=== PATIENT | male | born 1975 | race African-American/Black ===

== ENCOUNTER 2025-08-22 11:17 | Outpatient (AMB) | payer OTHER, SELFPAY ==
--- NOTE | 2025-08-22 11:19 | HO.NEPHOV_ITS ---
Vital Signs 08/22/25 11:22 Height 5 ft 8 in Weight 166 lb BMI 25.2 BP 134/100 H Blood Pressure Location Lt brachial Position Sitting Pulse 83 Pulse Source Pulse Oximeter Pulse Oximetry (%) 95 Oxygen Delivery Method Room Air Intake Visit Reasons: ENP: CKD STG 2-LVM Security Tech Required: No Accompanied by: Significant Other Allergies metformin Allergy (Verified 08/22/25 11:21) Diarrhea HPI Comments Details: I had the pleasure of seeing Darren in consultation for CKD and hypertension. He has a long H/O uncontrolled DM. He is on insulin. He is on ARB as well as Amlodipine for hypertension. He is not on GLP1 or SGLT2 i. He has H/O retinopathy needing laser treatment for his right eye. He denied CAD, Carotid stenosis, CVA, CHF or PAD. He denies smoking but smokes marijuana. He has H/O difficulty swallowing, gastric emptying but had intermittent bouts of vomiting. He tries to avoid NSAID's as much as he can. He is not sure whether he has proteinuria. His last serum creatinine was 1.47 [facility] Medical History (Updated 08/22/25 @ 21:17 by Sony Hawk MD) Urolithiasis Tendonitis of knee, right Tachycardia Right knee pain Osteoarthritis of right knee Migraine with aura and without status migrainosus, not intractable Major depressive disorder in partial remission Iron deficiency anemia due to chronic blood loss Insomnia Hypertension H/O esophageal reflux Erectile dysfunction Elevated alkaline phosphatase level DM (diabetes mellitus), type 2 with peripheral vascular complications COVID-19 virus infection Surgical History History of endoscopy Family History Mother Cancer Maternal Grandfather Diabetes mellitus Social History (Updated 08/22/25 @ 11:20 by Dahlia Mcmillan MA) Alcohol intake: never Patient Tobacco Use Status: Never used Tobacco Substance Use Type: Marijuana Review of Systems Const All systems reviewed & are unremarkable except as noted in HPI and below Physical Exam Vital Signs: Last Vital Signs Pulse 83 08/22/25 11:22 BP 134/100 H 08/22/25 11:22 Pulse Ox 95 08/22/25 11:22 Oxygen Delivery Method Room Air 08/22/25 11:22 BMI result Body Mass Index 25.2 Const General: comfortable and no acute distress Orientation/consciousness: patient oriented x3 HEENT Head: Yes normocephalic Mouth: Normal oral and palatal mucosa present Eyes EOM: EOMs intact bilaterally Neck Neck: Yes supple Resp Auscultation: clear to auscultation bilaterally Cardio Jugular venous distension: no JVD Rate: regular rate GI Palpation (GI): Soft to palpation Auscultation: normal bowel sounds General: Yes no CVA tenderness Back/Spine/Pelvis Back: no CVA tenderness Skin General skin exam: no rashes or lesions noted Neuro General: patient oriented x3 and moves all extremities Extrem General: Yes no pedal edema Assessment & Plan Assessment & Plan (1) Hypertension: Code(s): I10 - Essential (primary) hypertension Category: Medical Qualifiers: Hypertension type: primary hypertension Qualified Code(s): I10 - Essential (primary) hypertension (2) CKD stage 3 due to type 2 diabetes mellitus: Code(s): E11.22 - Type 2 diabetes mellitus with diabetic chronic kidney disease; N18.30 - Chronic kidney disease, stage 3 unspecified Category: Medical Plan Darren has CKD likely from diabetic renal disease. He is on ARB but not on GLP1 agonist or SGLT2 i. He needs to maintain good hydration and avoid NSAID's. I ordered W/U including renal imaging as well as creatinine clearance. He may need a renal biopsy. I plan to initiate him on SGLT2 i at next visit based on evolving data. Answered all questions and F/U was given Orders: Orders Immunofixation, Random Urine Today E11.22 - Type 2 diabetes mellitus with diabetic chronic kidney disease, I10 - Essential (primary) hypertension, N18.30 - Chronic kidney disease, stage 3 unspecified Creatinine Today E11.22 - Type 2 diabetes mellitus with diabetic chronic kidney disease, I10 - Essential (primary) hypertension, N18.30 - Chronic kidney disease, stage 3 unspecified Blood Urea Nitrogen Today E11.22 - Type 2 diabetes mellitus with diabetic chronic kidney disease, I10 - Essential (primary) hypertension, N18.30 - Chronic kidney disease, stage 3 unspecified Phosphorus Today E11.22 - Type 2 diabetes mellitus with diabetic chronic kidney disease, I10 - Essential (primary) hypertension, N18.30 - Chronic kidney disease, stage 3 unspecified Anti DNA DS Antibody Today E11.22 - Type 2 diabetes mellitus with diabetic chronic kidney disease, I10 - Essential (primary) hypertension, N18.30 - Chronic kidney disease, stage 3 unspecified Myeloperoxidase Antibody Today E11. - Type 2 diabetes mellitus with diabetic chronic kidney disease, I10 - Essential (primary) hypertension, N18.30 - Chronic kidney disease, stage 3 unspecified Proteinase 3 PR3 Antibodies Today E11. - Type 2 diabetes mellitus with diabetic chronic kidney disease, I10 - Essential (primary) hypertension, N18.30 - Chronic kidney disease, stage 3 unspecified US renal BI 3 Weeks E11. - Type 2 diabetes mellitus with diabetic chronic kidney disease, I10 - Essential (primary) hypertension, N18.30 - Chronic kidney disease, stage 3 unspecified Creatinine Clearance Urine 24U Today E11. - Type 2 diabetes mellitus with diabetic chronic kidney disease, I10 - Essential (primary) hypertension, N18.30 - Chronic kidney disease, stage 3 unspecified Complete Blood Count Auto Diff Today E11. - Type 2 diabetes mellitus with diabetic chronic kidney disease, I10 - Essential (primary) hypertension, N18.30 - Chronic kidney disease, stage 3 unspecified Protein Creatinine Ratio, Ur Today E11. - Type 2 diabetes mellitus with diabetic chronic kidney disease, I10 - Essential (primary) hypertension, N18.30 - Chronic kidney disease, stage 3 unspecified Electrolytes Today E11. - Type 2 diabetes mellitus with diabetic chronic kidney disease, I10 - Essential (primary) hypertension, N18.30 - Chronic kidney disease, stage 3 unspecified Calcium Today E11. - Type 2 diabetes mellitus with diabetic chronic kidney disease, I10 - Essential (primary) hypertension, N18.30 - Chronic kidney disease, stage 3 unspecified Phospholipase A2 Receptor Pnl Today . - Type 2 diabetes mellitus with diabetic chronic kidney disease, I10 - Essential (primary) hypertension, N18.30 - Chronic kidney disease, stage 3 unspecified Anti Glomerular Basement Memb Today E11. - Type 2 diabetes mellitus with diabetic chronic kidney disease, I10 - Essential (primary) hypertension, N18.30 - Chronic kidney disease, stage 3 unspecified Complement C3 Today E11. - Type 2 diabetes mellitus with diabetic chronic kidney disease, I10 - Essential (primary) hypertension, N18.30 - Chronic kidney disease, stage 3 unspecified Complement C4 Today . - Type 2 diabetes mellitus with diabetic chronic kidney disease, I10 - Essential (primary) hypertension, N18.30 - Chronic kidney disease, stage 3 unspecified Prothrombin Time INR Today E11.22 - Type 2 diabetes mellitus with diabetic chronic kidney disease, I10 - Essential (primary) hypertension, N18.30 - Chronic kidney disease, stage 3 unspecified Coding Level of Care Code New Pt Level 4 (50678) Diagnoses Primary hypertension I10 Hypertension type: primary hypertension CKD stage 3 due to type 2 diabetes mellitus E11.22; N18.30
[2025-08-22 11:22] VITALS: BP 134/100; PULSE 83; O2SAT 95; BMI 25.2
--- OUTSIDE RECORDS SUMMARY | 2025-08-22 12:44 | XMS_ITS | Encounter Summary ---
Author Organization [facility] Address [address] [facility] [address] [place] [phone] Phone Care Team Providers Care Team Leader Name Role Phone Americo Garcia MD Primary Care Provider [phone] Americo Garcia MD Unavailable [phone] Kassi Bal Unavailable Pcp, Unknown Primary Care Provider Unavailabl e Dank Nguyen MD Primary Care Provider [phone] Encounter Details Date Type Department Care Team (Late st Contact Info) Description 08/19/2017 [place] [facility] [place] [facility] [address] [place] [address] Americo Garcia MD [address] [place] [address] [email or web address] Social History Tobacco Use Types Packs/Day Years Used Date Smoking Tobacco: Every Day Cigarettes 0.3 15 Alcohol Use Standard Drinks/Week Comments Yes 0 (1 standard drink = 0.6 oz pur e alcohol) socially Sex and Gender Information Value Date Recorded Sex Assigned at Male 11/30/2017 9:36 AM EST Legal Sex Male 11:15 AM EST Gender Identity Male 11/30/2017 9:36 AM EST Sexual Orientation Straight 11/30/2017 9: 36 AM EST documented as of this encounter Plan of Treatment Not on file documented as of this encounter Visit Diagnoses Not on filedocumented in this encounter Care Teams Team Leader Relationship Specialty Start Date End Date Americo Garcia MD [address] [place] [address] [email or web address] PCP - General Internal Medicine 05/05/17 12/15/21 Pcp, Unknown PCP - General 02/01/22 07/06/22 Dank Nguyen MD [address] [place] [address] [address] [place] [address] PCP - General Internal Medicine 07/07/22 Americo Garcia MD [address] [place] [address] Ave[address] [place] [address] [email or web address] Attributed Provider 05/24/17 03/02/21 Kassi Bal [address] [place] [address] [place] [phone] [email or web address] Infrastructure Project Manager 01/20/18 documented as of this encounter Additional Source Comments The information contained in this document represents components of the legal health record. It is not the complete legal health record.[facility]
--- OUTSIDE RECORDS SUMMARY | 2025-08-22 12:44 | XMS_ITS | Clinical Summary ---
Author Organization [employer] [facility] Address [address] [place] [address] Care Team Providers Care Cloth Shearing Supervisor Name Role Phone Dank Nguyen MD Primary Care Provider Unavailab le Allergies No known active allergies Medications Medication Sig Dispensed Refills Start Date End Date Status insulin lispro (HumaLOG) injection 100 units/mL Inject under the skin 3 (three) times a day before meals. Sliding scale 0 Active Insulin Glargine (Basaglar KwikPen) 100 UNIT/ML SOPN Inject 44 Units under the skin daily. 0 Active Active Problems Problem Noted Date Diagnosed Date Other specified anemias 06/16/2023 Social History Tobacco Use Types Packs/Day Years Used Date Smoking Tobacco: Never Assessed Sex and Gender Information Value Date Recorded Sex Assigned at Not on file Gender Identity Not on file Sexual Orientation Not on file Job Start Date Occupation Industry Not on file Not on file Not on file Last Filed Vital Signs Vital Sign Reading Time Taken Comments Blood Pressure 107/65 11/10/2023 9:23 AM EST Pulse 81 11/10/2023 9:23 AM EST Temperature 37.2 C (99 F) 11/10/2023 9:23 AM EST Respiratory Rate - - Oxygen Saturation 100% 11/10/2023 9:23 AM EST Inhaled Oxygen Concentration - - Weight 74.7 kg (164 lb 9.6 oz) 11/10/2023 9:23 A M EST Height 170.2 cm (5' 7 ) 07/15/2023 9:37 AM EDT Body Mass Index 25.78 07/15/2023 9:37 AM EDT Plan of Treatment Health Maintenance Due Date Last Done Comments Hepatitis C Screening 1977 Depression Screening 1989 Preventative Health Evaluation 1995 Hepatitis B Vaccines (3 of 3 - 19+ 3-dose series) 08/18/2016 03/19/2016, 02/16/2016 Colon Cancer Screening (Colonoscopy) 2022 COVID-19 Vaccine (2 - 2024-2 6 season) 2025 10/29/2021 Influenza Vaccine (#1) 2025 7, 09/14/2012, 10/11/2010 DTap / Tdap / Td (2 - Td or Tdap) 11/04/2027 11/04/2017 Pneumococcal Vaccine Aged Out 03/21/2021, 11/04/2017 No longer eligible based on patient's age to complete this topic RSV Ped < 20 months Aged Out No longe r eligible based on patient's age to complete this topic Care Teams Cloth Shearing Supervisor Relationship Specialty Start Date End Date Dank Nguyen MD PCP - General Internal Medicine 05/13/23
--- OUTSIDE RECORDS SUMMARY | 2025-08-22 12:44 | XMS_ITS | Clinical Summary ---
Author Organization [facility] Address [address] [place] [address] Care Team Providers Care Metal Window Frame Maker Name Role Phone Unavailable Primary Care Provider Unavailabl e Allergies No known active allergies Social History Tobacco Use Types Packs/Day Years Used Date Smoking Tobacco: Light Smoker Alcohol Use Standard Drinks/Week Comments Never 0 (1 standard drink = 0.6 oz pur e alcohol) AUDIT-C Answer Date Recorded Q1: How often do you have a drink containing alc ohol? Never 11/10/2020 Average Number of Drinks Not on file 020 Frequency of Binge Drinking Not on file 10/23 Sex and Gender Information Value Date Recorded Sex Assigned at Not on file Legal Sex Male 9:31 PM EST Gender Identity Not on file Sexual Orientation Not on file Last Filed Vital Signs Vital Sign Reading Time Taken Comments Blood Pressure 126/86 11/11/2020 4:06 AM EST Pulse 72 11/11/2020 4:06 AM EST Temperature 37 C (98.6 F) 11/10/2020 9:35 PM EST Respiratory Rate 20 11/11/2020 4:06 AM EST Oxygen Saturation 95% 11/11/2020 4:06 AM EST Inhaled Oxygen Concentration - - Weight 74.8 kg (165 lb) 11/10/2020 9:35 PM EST Height - - Body Mass Index - - Plan of Treatment Health Maintenance Due Date Last Done Comments Hepatitis C Virus Screening 1977 HIV Screening 1990 DTaP/Tdap/Td Vaccines (1 - Tdap) 1996 Hepatitis B Vaccines (1 of 3 - 19+ 3-dose series) 1996 Colonoscopy 2022 Influenza Vaccine 06/23/2025 08/11/2017 COVID-19 Vaccine (2023-2 5 season) 2025 Hemoglobin A1C Discontinued 02/17/2019 Pneumococcal Vaccine: Pediat scott (0-5 Years) and At-Risk Patients (6 to 49 Years) Aged Out No longer eligible b ased on patient's age to complete this topic Insurance [facility]
--- OUTSIDE RECORDS SUMMARY | 2025-08-22 12:45 | XMS_ITS | Clinical Summary ---
Author Organization [facility] Address [address] [facility] [address] [place] [address] Phone Care Team Providers Care Towel Cabinet Repairer Name Role Phone Rebecca Parker Primary Care Provider [phone] Allergies Active Allergy Reactions Criticality Noted Date Comments Metformin 08/24/2024 Medications irbesartan (AVAPRO) 150 MG tablet Take 150 mg by mouth every night Active levalbuterol (XOPENEX HFA) 45 MCG/ACT inhaler Inhale 2 puffs every 6 (six) hours if needed Active amLODIPine (NORVASC) 10 MG tablet Take 10 mg by mouth 1 (one) time each day Active Ascorbic Acid (Vitamin C) 500 MG chewable tablet TAKE 1 TABLET BY MOUTH DAILY. TAKE WITH IRON DAILY Active busPIRone (BUSPAR) 5 MG tablet Take 10 mg by mouth 08/09/20 24 Active Iron, Ferrous Sulfate, 325 (65 Fe) MG tablet Take 1 tablet by mouth 1 (one) time each day 05/20/20 24 Active Magnesium 200 MG tablet Take 1 tablet by mouth 1 (one) time each day in the evening 07/28/20 24 Active metoprolol succinate XL (TOPROL-XL) 100 MG 24 hr tablet Take 100 mg by mouth 1 (one) time each day 06/10/20 24 Active pantoprazole (PROTONIX) 40 MG EC tablet Take 40 mg by mouth 1 (one) time each day before breakfast 05/20/20 24 Active Nurtec 75 MG tablet dispersible 75 mg 08/10/20 24 Active tadalafil (CIALIS) 20 MG tablet Take 20 mg by mouth 1 (one) time each day if needed 07/29/20 24 Active topiramate (TOPAMAX) 50 MG tablet Take 25 mg by mouth 1 (one) time each day 08/10/20 24 Active nortriptyline (PAMELOR) 25 MG capsule Take 25 mg by mouth every night 08/10/20 24 Active Lantus SoloStar 100 UNIT/ML injection Inject under the skin Active insulin aspart (NovoLOG FLEXPEN) 100 UNIT/ML injection INJECT SUBCUTANEOUSLY THREE TIMES A DAY. USE PER SLIDING SCALE. <100: 0 units, 101-150: 6 units, 151-200: 8 units, 201-250: 10 units, 251-300: 12 units, 301-350: 14 units, 351-400: 16 units, >400: call me 01/18/20 Active Active Problems Problem Noted Date Diagnosed Date Cyclical vomiting syndrome 07/11/2025 Stage 3a chronic kidney disease 10/25/2024 Injury of kidney 08/24/2024 Hyponatremia 08/24/2024 Hyperbilirubinemia 08/24/2024 Diabetic ketoacidosis 08/24/2024 Diabetes mellitus 08/24/2024 Leukocytosis 08/24/2024 Lactic acidosis 08/24/2024 Stage 3b chronic kidney disease 08/24/2024 Type 1 diabetes mellitus wit h diabetic chronic kidney disease 08/24/2024 Tachycardia 05/27/2024 Anemia 06/16/2023 Intractable nausea and vomiting 02/01/2022 Osteoarthritis of right knee joint 04/29/2021 Other specified enthesopathy of right lower limb, excluding foot 04/29/2021 Pain of right knee region 04/29/2021 Major depression in partial remission 03/21/2021 Insomnia 04/19/2020 Migraine with aura 02/17/2020 Gastroesophageal reflux disease 02/18/2019 Overview (08/24/2024): Last Assessment & Plan: PPI 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 Continue current management; refills provided. Headache 08/11/2017 Benign neoplasm of soft tissue 05/05/2017 Overview (08/24/2024): Last Assessment & Plan: States he has not been able to follow up with a shredding machine tender for multiple freckles. [place] [facility] [place] provided for a skin check; significance explained. Nicotine dependence, cigarettes, uncomplicated 0 05/05/2017 Generalized abdominal pain 11/25/2015 Urolithiasis 01/03/2011 Overview (07/11/2025): [place] Hypertensive disorder 10/11/2009 Immunizations Immunization Administration Dates Next Due Hepatitis B 03/19/2016,02/16/2016 Influenza (IM) Preservative Free 09/14/2012,09/23 Influenza, Quadrivalent, Preservative Free 08/11 [place] SARS-COV-2 10/29/2021 Pneumococcal Polysaccharide 03/21/2021, 7 Td 11/23/2007 Tdap 11/04/2017 Family History Medical History Relation Comments Diabetes Mother Hypertension Paternal Grandfather Relation Status Comments Mother Paternal Grandfather Social History Tobacco Use Types Packs/Day Years Used Date Smoking Tobacco: Never Assessed Sex and Gender Information Value Date Recorded Sex Assigned at Not on file Legal Sex Male 11:08 AM EDT Gender Identity Not on file Sexual Orientation Not on file Last Filed Vital Signs Vital Sign Reading Time Taken Comments Blood Pressure 130/80 10/25/2024 2:43 PM EST Pulse 137 10/25/2024 2:43 PM EST Temperature - - Respiratory Rate - - Oxygen Saturation 100% 10/25/2024 2:43 PM EST Inhaled Oxygen Concentration - - Weight 75.3 kg (166 lb) 10/25/2024 2:43 PM EST Height - - Body Mass Index - - Plan of Treatment Upcoming Encounters Date Type Department Care Team (Late st Contact Info) Description 10/24/2025 9:30 AM EST Office Visit [facility] [address] [facility] [address] [place] [address] Fabian Haider MD [address] [facility] [address] [place] [phone] Health Maintenance Due Date Last Done Comments Hepatitis B Vaccine (1 of 3 - 19+ 3-dose series) 1996 03/19/2016, 02/16/2016 Pneumococcal Vaccine: Peds ( 0 to 5 Years) and At-Risk Patients (6 to 49 Years) (3 of 3 - PCV) 03/21/2022 03/21/2021, 11/04/2017 Diabetes: Ophthalmology Exam 03/08/2024 01/15/2018, 10/26/2017 Diabetes: Pedal Pulse Checked 03/08/2024 Diabetes: Sensory Foot Exam 03/08/2024 Diabetes: Visual Foot Exam 03/08/2024 Diabetes: Hemoglobin A1C 06/08/2025 025, 05/06/2024, 03/08/2024 Influenza Vaccine (#1) 2025 7, 09/14/2012, 10/11/2010 Procedures Procedure Name Priority Date/Time Associated Diagnosis Comments SPECIAL CHEMISTRY Routine 03/08/2024 from Last 3 Months or Most Recently Relevant to Health Maintenance Results * (ABNORMAL) SPECIAL CHEMISTRY (03/08/2024) Hemoglobin A1C 8.3(H) 4.8 - 5.9 % [place] 03/08/2024 03/09/2024 8:3 4 AM EDT Narrative [facility] - 03/09/2024 Unless otherwise specified, test(s) performed at: [facility], [address] [place] [address] YARD ASSOCIATE: Joe Guerrero M.D. For any questions, please call customer service at FREQUENCY:MONTHLY Resulting Agency Comment Specimen source: Blood us Micha Jiménez MD LAB BLOOD BANK TEST ORDERABLES F inal Result [facility] See order comments or contact performing lab Unknown, [place] from Last 3 Months or Most Recently Relevant to Health Maintenance Insurance [employer] Medicaid [place] [facility] Medicaid Care Teams Towel Cabinet Repairer Relationship Specialty Start Date End Date Rebecca Parker [address] [place], [place] [id number] PCP - General Nurse Practitioner 08/10/24
--- OUTSIDE RECORDS SUMMARY | 2025-08-22 12:45 | XMS_ITS | Clinical Summary ---
Author Organization 175 [facility] Address [address] [place] [address] Phone Care Team Providers Care Consular Officer Name Role Phone Dank Nguyen MD Primary Care Provider [phone] Allergies Active Allergy Reactions Criticality Noted Date Comments Metformin Diarrhea 09/02/2024 Medications blood sugar diagnostic (FreeStyle Lite Strips) test strip To check FSG 3 times daily 08/09/20 Active irbesartan (AVAPRO) 150 mg tablet Take 1 Tablet by mouth daily for 360 days. 08/09/20 24 Active metoprolol succinate (Kapspargo Sprinkle) 100 mg capsule,sprinkle, ER 24hr Take 1 Capsule by mouth daily. 08/09/20 24 Active amLODIPine (NORVASC) 10 mg tablet Take 1 Tablet by mouth daily. 08/09/20 Active busPIRone (BUSPAR) 5 mg tablet Take 1 Tablet by mouth 3 times daily as needed (anxiety) for up to 360 days. 08/09/20 24 Active tadalafiL (CIALIS) 20 mg tablet TAKE 1 TABLET BY MOUTH NEEDED FOR ERECTILE DYSFUNCTION. 30 MINUTES PRIOR TO SEXUAL ACTIVITY 07/29/20 Active ferrous sulfate 325 mg (65 mg iron) EC tablet 05/20/20 24 Active aluminum-magnesiu m hydroxide-simethi cone (MAALOX) 200-200-20 mg/5 mL suspension Take 15 mL by mouth 4 times daily as needed (gastric ulcers). 05/20/20 Active levalbuterol (XOPENEX HFA) 45 mcg/actuation inhaler Inhale 1-2 Puffs into the lungs every 4 hours as needed for Wheezing. 05/13/20 24 Active albuterol HFA (PROAIR HFA ; PROVENTIL HFA ; VENTOLIN HFA) 90 mcg/actuation inhaler Inhale 2 Puffs into the lungs every 4 hours as needed for Cough or Wheezing. 04/29/20 24 Active FREESTYLE LANCETS MISC To check FSG 3 times daily 12/16/19 24 Active blood-glucose sensor (FREESTYLE ODALYS 3 SENSOR MISC) 1 Device by Does not apply route every 14 days. 06/30/20 23 Active alcohol swabs (Alcohol Prep Pads) pads, medicated USE DIRECTED FOUR TIMES A DAY PRIOR TO INSULIN INJECTION 08/29/20 22 Active pen needle, diabetic 31 gauge x 5/16 needle TO INJECT INSULIN 4 TIMES A DAY 10/24/20 22 Active insulin aspart (NovoLOG Flexpen U-100 Insulin) 100 unit/mL (3 mL) injection pen INJECT SUBCUTANEOUSLY THREE TIMES A DAY. USE PER SLIDING SCALE. <100: 0 units, 101-150: 6 units, 151-200: 8 units, 201-250: 10 units, 251-300: 12 units, 301-350: 14 units, 351-400: 16 units, >400: call me 10/24/20 22 Active blood-glucose meter kit Use to check blood sugars three times per day 08/21/20 20 Active magnesium 200 mg tablet TAKE 1 TABLET BY MOUTH EVERYDAY AT BEDTIME 30 tablet 3 09/27/20 24 Active Lantus Solostar U-100 Insulin 100 unit/mL (3 mL) injection pen INJECT 40-44 UNITS UNDER THE SKIN AT BEDTIME. 45 mL 1 01/28/20 25 Active topiramate (TOPAMAX) 50 mg tablet Take 1 tablet (50 mg total) by mouth 1 (one) time each day. 08/10/20 24 Active ondansetron ODT (ZOFRAN-ODT) 4 mg disintegrating tablet Take 1 tablet (4 mg total) by mouth every 8 (eight) hours if needed. for nausea and vomiting 10/07/20 24 Active albuterol HFA (PROAIR HFA ; PROVENTIL HFA ; VENTOLIN HFA) 90 mcg/actuation inhalerIndication s:SOB (shortness of breath) Inhale 2 puffs by mouth every 6 (six) hours if needed for wheezing or shortness of breath. 1 each 02/24/20 25 026 Active fluticasone furoate-vilantero L (Breo Ellipta) 100-25 mcg/dose inhaler Inhale 1 puff by mouth 1 (one) time each day. 3 each 05/22/20 Active albuterol HFA (Ventolin HFA) 90 mcg/actuation inhalerIndication s:COPD with asthma ([facility] V24, [facility] V28) Inhale 2 puffs by mouth every 6 (six) hours if needed for wheezing. 3 each 05/22/20 25 026 Active ergocalciferol (VITAMIN D-2) 1,250 mcg (50,000 unit) capsule Take 1 capsule (50,000 Units total) by mouth 1 (one) time per week. 4 each 05/29/20 25 026 Active rizatriptan (MAXALT) 10 mg tablet TAKE 1 TABLET (10 MG TOTAL) BY MOUTH 1 (ONE) TIME IF NEEDED FOR MIGRAINE (MAY REPEAT X1). MAY REPEAT IN 2 HOURS IF UNRESOLVED. DO NOT EXCEED 30 MG IN 24 HOURS. 6 tablet 1 06/09/20 25 026 Active esomeprazole (NexIUM) [address] capsule Take 1 capsule (40 mg total) by mouth 2 (two) times a day before meals. Do not open capsule. 180 each 07/19/20 25 025 Active metoclopramide (REGLAN) 5 mg tablet Take 1 tablet (5 mg total) by mouth 4 (four) times a day. 240 each 07/19/20 25 025 Active galcanezumab-gnlm (EMGALITY) 120 mg/mL injection penIndications:Ch ronic migraine with aura without status migrainosus, not intractable Inject 1 mL (120 mg total) under the skin every 28 (twenty-eight) days. 1 each 07/07/20 25 025 Active Problems Problem Noted Date Diagnosed Date Iron deficiency anemia due to chronic blood loss 06/26/2025 Chronic kidney disease, stage 3a ([facility] V24, [facility] [place]/[facility] V28) 08/24/2024 Tachycardia 05/27/2024 Esophageal reflux 06/17/2022 Tendonitis of knee, right 04/29/2021 Right knee pain 04/29/2021 Osteoarthritis of right knee 04/29/2021 Major depressive disorder in partial remission ([facility] V24) 03/21/2021 DM (diabetes mellitus), type 2 with peripheral vascular complications ([facility] V24, [facility] V28) 08/30/2020 COVID-19 virus infection 08/24/2020 Insomnia 04/19/2020 Elevated alkaline phosphatase level 02/22/2020 Overview (09/02/2024): Elevated GGTP 08/2020, rec RUQ u/s Migraine with aura and witho ut status migrainosus, not intractable 02/17/2020 Erectile dysfunction 02/17/2020 Urolithiasis 01/03/2011 Overview (09/02/2024): Aba HTN (hypertension) 10/11/2009 Encounters Date Type Department Care Team Description 08/10/2025 Telephone [address]astroenter[address] [phone] Karina Johnson MD 08/02/2025 11:00 AM EDT Office Visit Internal Medicine [address] [phone] Dank Nguyen MD Type 2 diabetes mellitus without complication, with long-term current use of insulin ([facility] V24, [facility] V28) (Primary Dx); Primary hypertension; Hypercholesterolemi a; Stage 2 chronic kidney disease 08/02/2025 Telephone Internal Medicine [address] [phone] Cassidy Kinney MA 07/19/2025 9:40 AM EDT Office Visit Gastroenterology [address] [phone] Veronica Tobin NP Nausea and vomiting in adult patient (Primary Dx); Esophagitis, Willacy grade D; Marijuana use; Elevated alkaline phosphatase level; History of gastric ulcer; Iron deficiency anemia, unspecified iron deficiency anemia type 07/19/2025 Telephone Gastroenterology - [place] [facility] [address] [place] [phone] Veronica Tobin NP 07/12/2025 1:00 PM EDT - 07/12/2025 11:59 PM EDT Hospital Encounter [facility] [address] [place] [phone] John Conley MD Iron deficiency anemia due to chronic blood loss (Primary Dx) Discharge Disposition: Home or Self Care 07/07/2025 10:04 AM EDT - 07/07/2025 11:59 PM EDT Hospital Encounter [facility] [address] [place] [phone] John Conley MD Iron deficiency anemia due to chronic blood loss (Primary Dx) Discharge Disposition: Home or Self Care 07/07/2025 9:00 AM EDT Office Visit [facility] [place] [facility] [address] [place] [phone] Mary Jo Oneil PA Chronic migraine with aura without status migrainosus, not intractable (Primary Dx) 06/20/2025 9:45 AM EDT Office Visit [facility] [address] [place] [phone] Tomer Allan MD Iron deficiency anemia due to chronic blood loss (Primary Dx) 05/22/2025 11:00 AM EDT Office Visit [facility] [address] [place] [phone] Tomer Allan MD Anemia, unspecified type (Primary Dx) 05/22/2025 9:30 AM EDT Office Visit Pulmonology [facility] 175 [facility] [address] [place] [phone] Marlene Jiménez MD COPD with asthma (CMS/HCC V24, CMS/HCC V28) (Primary Dx); Obstructive lung disease (CMS/HCC V24, CMS/HCC V28); Restrictive lung disease; ARDS survivor; Ex-smoker; Dyspnea, unspecified type 05/22/2025 9:00 AM EDT Ancillary Procedure Pulmonology - [place] [facility] [address] [place] [phone] SOB (shortness of breath) from Last 3 Months Immunizations Immunization Administration Dates Next Due Influenza trivalent, 0.5mL, preservative free (Fluarix; FluLaval; Fluzone) ages 6mo and older (Afluria) 3 years and older 09/14/2012,10/11/2010 Pneumococcal polysaccharide 23 valent (Pneumovax 23) 2yo and older 03/21/2021 Td Tetanus diptheria (Tdvax) 7yo and older 11/23 Surgical History Surgery Date Site/Laterality Comments UPPER GASTROINTESTINAL ENDOSCOPY 10/10/2020 PROCEDURE: [place] UPPER GI ENDOSCOPY PERFORMED; COMMENT: BARRON grade C reflux esophagitis on current treatment with pantoprazole, pathology: Reflux, no virus infection. Medical History Medical History Date Comments Urolithiasis 01/03/2011 DX:Urolithiasis Esophageal reflux DX:Esophageal reflux Cervical spondylosis without myelopathy DX:Cervical spondylosis with out myelopathy Depressive disorder DX:Depressiv e disorder Diabetes mellitus type 2, co ntrolled, with complications ([facility]/HCC V24, CMS/HCC V28) DX:Diabetes mellitus type 2, controlled, with complications ([facility]) Essential hypertension DX:Essent ial hypertension Stage 3 acute kidney injury ([facility]/HCC V24) DX:Stage 3 acute kidney inju ry ([facility]) Family History Medical History Relation Name Comments Diabetes Maternal Grandfather Other cancer Mother Relation Name Status Comments Brother 1 Alive Brother 2 Alive Father Alive Maternal Grandfather Mother Alive Social History Tobacco Use Types Packs/Day Years Used Date Smoking Tobacco: Former Cigarettes Q uit: 11/23/2004 Smokeless Tobacco: Never Tobacco Cessation:Counseling Given: Not Answered Alcohol Use Standard Drinks/Week Comments Yes 0 (1 standard drink = 0.6 oz pur e alcohol) Sex and Gender Information Value Date Recorded Sex Assigned at Male 02/24/2025 3:31 PM EDT Legal Sex Male 7:11 PM EST Gender Identity Male 02/24/2025 3:31 PM EDT Sexual Orientation Straight 02/24/2025 3: 31 PM EDT Obstetrics History Last Filed Vital Signs Vital Sign Reading Time Taken Comments Blood Pressure 122/62 08/02/2025 11:06 AM EDT Pulse 74 08/02/2025 11:06 AM EDT Temperature 36.7 C (98.1 F) 07/12/2025 1:42 PM EDT Respiratory Rate 18 05/22/2025 9:38 AM EDT Oxygen Saturation 98% 08/02/2025 11:06 AM EDT Inhaled Oxygen Concentration - - Weight 71.2 kg (157 lb) 08/02/2025 11:06 AM EDT Height 172.7 cm (5' 8 ) 08/02/2025 11:06 AM EDT Body Mass Index 23.87 08/02/2025 11:06 AM EDT Plan of Treatment Upcoming Encounters Date Type Department Care Team (Late st Contact Info) Description 09/20/2025 9:45 AM EDT Office Visit [facility] [address] [place] [phone] Tomer Allan MD [address] [place] [phone] 09/21/2025 8:[address] [facility] [address] [place] [phone] 10/13/2025 10:[address] [facility] [address] [place] [phone] Felipe Koch DO 175 [facility] [address] [place] [address] 11/21/2025 9:45 AM EST Office Visit Pulmonology - [place] [facility] [address] [place] [phone] Marlene Jiménez MD 175 [facility] [address] [place] [address] 11/22/2025 1:00 PM EST Office Visit [facility] [place] [facility] [address] [place] [phone] Nazia Doherty MD [address] [place] [address] 02/01/2026 10:30 AM EDT Office Visit Internal Medicine - [place] [facility] [address] [place] [phone] Keith Fernandez NP 175 [facility] [address] [place] [address] Health Maintenance Due Date Last Done Comments Colorectal Cancer Screening: Colonoscopy 1977 Diabetes: Annual Foot Exam 1987 Diabetes: Annual Retina Eye Exam 1987 Hepatitis A Vaccines (1 of 2 - Risk 2-dose series) 1996 Hepatitis B Vaccines (3 of 3 - 19+ 3-dose series) 08/18/2016 03/19/2016, 02/16/2016 COVID-19 Vaccine (2 - Rosalva risk series) 11/26/2021 10/29/2021 Pneumococcal Vaccine: Pediatrics (0 to 5 Years) and At-Risk Patients (6 to 49 Years) (2 of 2 - PCV) 03/21/2022 03/21/2021, 11/04/2017 Social Influencers of Health Screening 10/25/2022 Depression Screening 11/23/2024 04/29/2024 Diabetes: Annual Urine Albumin-Creatinine Ratio (uACR) 05/06/2025 05/06/2024, 09/09/2018, 09/09/2018 Influenza Vaccine (#1) 2025 7, 09/14/2012, 10/11/2010 Diabetes: Blood Sugar Control Test (HGBA1C) 09/08/2025 03/09/2025, 05/06/2024, 05/06/2024 Diabetes: Annual GFR (Glomerular Filtration Rate) 05/22/2026 05/22/2025, 03/09/2025, 08/08/2024, Additional history exists Hypertension/CHF/CAD Annual BMP Blood Test 05/22/2026 05/22/2025, 03/09/2025, 08/08/2024, Additional history exists DTaP,Tdap,and Td Vaccines (3 - Td or Tdap) 11/04/2027 11/04/2017, 11/23/2007 Cholesterol Screening (Lipid Panel) 03/09/2030 03/09/2025, 05/06/2024, 05/06/2024, Additional history exists RSV Immunization Adult Patients (1 - 1-dose 75+ series) 2052 HIV Screening Completed 05/06/2024, 05/06/2024 Hepatitis C Screening Completed 05/06/2024 HIB Vaccines Aged Out No longer eligi ble based on patient's age to complete this topic HPV Vaccines Aged Out No longer eligi ble based on patient's age to complete this topic IPV Vaccines Aged Out No longer eligi ble based on patient's age to complete this topic MMR Vaccines Aged Out No longer eligi ble based on patient's age to complete this topic Meningococcal ACWY Vaccine Aged Out N o longer eligible based on patient's age to complete this topic Meningococcal B Vaccine Aged Out No l onger eligible based on patient's age to complete this topic RSV Immunization Patients Under 20 months Aged Out No longer eligible based on patient's age to complete this topic Varicella Vaccines Aged Out No longer eligible based on patient's age to complete this topic Procedures Procedure Name Priority Date/Time Associated Diagnosis Comments [place] PROTEIN ELECTROPHORETIC FRACTIONATION & QUANTITATION SERUM Routine 05/22/2025 11:18 AM EDT Anemia, unspecified type OH IMMUNOFIXATION ELECTROPHORESIS SERUM Routine 05/22/2025 11:18 AM EDT Anemia, unspecified type PROTEIN, TOTAL Routine 05/22/2025 11:18 AM EDT Anemia, unspecified type IMMUNOGLOBULINS IGG, IGA, IGM Routine 05/22/2025 11:18 AM EDT Anemia, unspecified type IMMUNOFIXATION ELECTROPHORESIS Routine 05/22/2025 11:18 AM EDT Anemia, unspecified type CBC WITH AUTO DIFFERENTIAL Routine 05/22/2025 11:18 AM EDT Dyspnea, unspecified type ELBA IFA WITH TITER AND PATTERN Routine 05/22/2025 11:18 AM EDT Anemia, unspecified type IMMUNOFIXATION ELECTROPHORESIS Routine 05/22/2025 11:18 AM EDT Anemia, unspecified type HAPTOGLOBIN Routine 05/22/2025 11:18 AM EDT Anemia, unspecified type FOLATE Routine 05/22/2025 11:18 AM EDT Anemia, unspecified type FERRITIN Routine 05/22/2025 11:18 AM EDT Anemia, unspecified type COMPREHENSIVE METABOLIC PANEL Routine 05/22/2025 11:18 AM EDT Anemia, unspecified type THYROID STIMULATING HORMONE Routine 05/22/2025 11:18 AM EDT Anemia, unspecified type SEDIMENTATION RATE Routine 05/22/2025 11 :18 AM EDT Anemia, unspecified type RHEUMATOID FACTOR Routine 05/22/2025 11: 18 AM EDT Anemia, unspecified type RETICULOCYTE COUNT Routine 05/22/2025 11 :18 AM EDT Anemia, unspecified type PROTEIN ELECTROPHORESIS, SERUM Routine 05/22/2025 11:18 AM EDT Anemia, unspecified type LACTATE DEHYDROGENASE Routine 05/22/2025 11:18 AM EDT Anemia, unspecified type KAPPA-LAMBDA QUANTITATIVE FREE LIGHT CHAINS Routine 05/22/2025 11:18 AM EDT Anemia, unspecified type IRON AND TIBC Routine 05/22/2025 11:18 AM EDT Anemia, unspecified type VITAMIN D 25 HYDROXY Routine 05/22/2025 11:18 AM EDT Chronic migraine with aura without status migrainosus, not intractable VITAMIN B12 Routine 05/22/2025 11:18 AM EDT Chronic migraine with aura without status migrainosus, not intractable BORRELIA BURGDORFERI ANTIBODY Routine 05/22/2025 11:18 AM EDT Chronic migraine with aura without status migrainosus, not intractable CBC AND DIFFERENTIAL Routine 05/22/2025 11:18 AM EDT Dyspnea, unspecified type PULMONARY FUNCTION TESTING Routine 05/22/2025 9:23 AM EDT SOB (shortness of breath) HEMOGLOBIN A1C Routine 03/09/2025 2:19 PM EDT Type 2 diabetes mellitus without complication, with long-term current use of insulin ([facility] V24, [facility] V28) Primary hypertension Hypercholesterolemi a Depression, unspecified depression type LIPID PANEL WITH REFLEX TO DIRECT LDL Routine 03/09/2025 2:19 PM EDT Type 2 diabetes mellitus without complication, with long-term current use of insulin (CMS/HCC V24, [facility] V28) Primary hypertension Hypercholesterolemi a Depression, unspecified depression type HEPATITIS C SCREENING Routine 05/06/2024 HIV SCREENING Routine 05/06/2024 URINE ALBUMIN CREATININE RATIO Routine 05/06/2024 DEPRESSION SCREENING Routine 04/29/2024 from Last 3 Months or Most Recently Relevant to Health Maintenance Results * Pathologist Review Immunofixation (05/22/2025 11:18 AM EDT) Pathologist Interpretation Meli De La Cruz MD 05/23/2025 10:28 AM EDT [facility] ([facility]) [facility] Blood Venous blood specimen / Unknown Venipuncture / Unknown 05/22/2025 11:18 AM EDT 05/22/2025 1:31 PM EDT Tomer Allan MD LAB BLOOD ORDERABLES Final Result Performing Organization Address [facility]/ZIP Co de Phone Number [facility] [address] [place] [address], [place] [phone] * PATHOLOGIST REVIEW PROTEIN ELECTROPHORESIS (05/22/2025 11:18 AM EDT) Pathologist Interpretation Meli De La Cruz MD 05/24/2025 1:54 PM EDT [facility] Blood Venous blood specimen / Unknown Venipuncture / Unknown 05/22/2025 11:18 AM EDT 05/22/2025 1:31 PM EDT Tomer Allan MD LAB BLOOD ORDERABLES Final Result Performing Organization Address [facility] de Phone Number [facility] [address] [place] [address], [place] [phone] * (ABNORMAL) [place]-lambda free light chains, quantitative (05/22/2025 11:18 AM EDT) [place] Free Light Chain 2.53(H) 0.33 - 1.94 mg/dL 05/25/2025 11:26 AM EDT [facility] Lambda Free Light Chain 2.16 0.57 - 2.63 mg/dL 05/25/2025 11:26 AM EDT [facility] [place]/Lambda FLC Ratio 1.17 0.26 - 1.65 05/25/2025 11:26 AM EDT [facility] Comment: Test performed at [facility], [address] , [place] [address] Melany Gooden MD, PhD - Entry Level Account Representative Blood Venous blood specimen / Unknown Venipuncture / Unknown 05/22/2025 11:18 AM EDT 05/22/2025 1:31 PM EDT Tomer Allan MD LAB BLOOD ORDERABLES Final Result Performing Organization Address [facility]/ZIP Co de Phone Number [facility] [address] [place] [address] * ELBA IFA with titer and pattern (05/22/2025 11:18 AM EDT) [facility] ELBA Negative Negative 05/23/2025 1:58 PM EDT [facility] Blood Venous blood specimen / Unknown Venipuncture / Unknown 05/22/2025 11:18 AM EDT 05/22/2025 1:31 PM EDT Tomer Allan MD LAB BLOOD ORDERABLES Final Result [facility] [address] [place] [address], * (ABNORMAL) CBC auto differential (05/22/2025 11:18 AM EDT) [facility] WBC 8.1 4.8 - 10.8 K/mcL LAB HEMETOLOGY METHOD 05/22/2025 1:54 PM EDT [facility] RBC 5.10 4.50 - 5.50 M/mcL LAB HEMETOLOGY METHOD 05/22/2025 1:54 PM EDT [facility] Hemoglobin 11.3(L) 13.5 - 17.5 g/dL LAB HEMETOLOGY METHOD 05/22/2025 1:54 PM EDT [facility] Hematocrit 39.0(L) 42.0 - 54.0 % LAB HEMETOLOGY METHOD 05/22/2025 1:54 PM EDT [facility] MCV 76.5(L) 79.0 - 98.0 FL LAB HEMETOLOGY METHOD 05/22/2025 1:54 PM EDT [facility] MCH 22.2(L) 27.0 - 32.0 pcg LAB HEMETOLOGY METHOD 05/22/2025 1:54 PM EDT [facility] MCHC 29.0(L) 32.0 - 37.0 g/dL LAB HEMETOLOGY METHOD 05/22/2025 1:54 PM [facility] RDW 15.3(H) 11.0 - 15.0 % LAB HEMETOLOGY METHOD 05/22/2025 1:54 PM [facility] Platelets 287 130 - 400 K/mcL LAB HEMETOLOGY METHOD 05/22/2025 1:54 PM [facility] MPV 11.7(H) 7.0 - 11.0 FL LAB HEMETOLOGY METHOD 05/22/2025 1:54 PM [facility] NRBC 0.0 <1.0 % LAB HEMETOLOGY METHOD 05/22/2025 1:54 PM [facility] NRBC Absolute 0.00 <0.10 K/mcL LAB HEMETOLOGY METHOD 05/22/2025 1:54 PM [facility] Neutrophils Relative 66.4 % LAB HEMETOLOGY METHOD 05/22/2025 1:54 PM [facility] Lymphocytes Relative 24.8 % LAB HEMETOLOGY METHOD 05/22/2025 1:54 PM [facility] Monocytes Relative 6.4 % LAB HEMETOLOGY METHOD 05/22/2025 1:54 PM [facility] Eosinophils Relative 1.4 % LAB HEMETOLOGY METHOD 05/22/2025 1:54 PM [facility] Basophils Relative 0.6 % LAB HEMETOLOGY METHOD 05/22/2025 1:54 PM [facility] Immature Granulocytes Relative 0.4 % LAB HEMETOLOGY METHOD 05/22/2025 1:54 PM [facility] Neutrophils Absolute 5.40 1.50 - 7.00 K/mcL LAB HEMETOLOGY METHOD 05/22/2025 1:54 PM [facility] Lymphocytes Absolute 2.02 1.00 - 5.00 K/mcL LAB HEMETOLOGY METHOD 05/22/2025 1:54 PM EDT [facility] Monocytes Absolute 0.52 0.20 - 1.00 K/[facility] HEMETOLOGY METHOD 05/22/2025 1:54 PM EDT [facility] Eosinophils Absolute 0.11 0.00 - 0.50 [facility] HEMETOLOGY METHOD 05/22/2025 1:54 PM EDT [facility] Basophils Absolute 0.05 0.00 - 0.20 [facility] HEMETOLOGY METHOD 05/22/2025 1:54 PM EDT [facility] Immature Granulocytes Absolute 0.03 0.00 - 0.03 K/[facility] HEMETOLOGY METHOD 05/22/2025 1:54 PM EDT [facility] Blood Venous blood specimen / Unknown Venipuncture / Unknown 05/22/2025 11:18 AM EDT 05/22/2025 1:31 PM EDT us Marlene Jiménez MD LAB BLOOD ORDERABLES Final Resul t [facility] [address] [place] [address], * Iron and TIBC (05/22/2025 11:18 AM EDT) Iron 133 50 - 160 mcg/dL LAB CHEMISTRY METHOD 05/22/2025 2:42 PM EDT [facility] TIBC 416 250 - 450 mcg/dL LAB CHEMISTRY METHOD 05/22/2025 2:42 PM EDT [facility] Iron Saturation 32 20 - 50 % LAB CHEMISTRY METHOD 05/22/2025 2:42 PM EDT [facility] Blood Venous blood specimen / Unknown Venipuncture / Unknown 05/22/2025 11:18 AM EDT 05/22/2025 1:31 PM EDT Tomer Allan MD LAB BLOOD ORDERABLES Final Result Performing Organization Address City/[facility]/ZIP Co de Phone Number [facility] [address] [place] [address], [place] [phone] * Borrelia burgdorferi antibody (05/22/2025 11:18 AM EDT) [facility] Lyme Ab Negative Negative LAB CHEMISTRY METHOD 05/22/2025 3:05 PM EDT [facility] Comment: No laboratory evidence of infection with B. burgdorferi (Lyme disease). Negative results may occur in patients recently infected (<=14 days) with B. burgdorferi. If recent infection is suspected, repeat testing on a new sample collected in 7- 14 days is recommended. Blood Venous blood specimen / Unknown Venipuncture / Unknown 05/22/2025 11:18 AM EDT 05/22/2025 1:31 PM EDT Nazia Doherty MD LAB BLOOD ORDERABLES Fin al Result Performing Organization Address [facility]/ZIP Co de Phone Number [facility] [address] [place] [address], [place] [phone] * (ABNORMAL) Vitamin D 25 hydroxy (05/22/2025 11:18 AM EDT) [facility] Vit D, 25-Hydroxy 16.2(L) 30.0 - 80.0 ng/mL LAB CHEMISTRY METHOD 05/22/2025 3:47 PM EDT [facility] Blood Venous blood specimen / Unknown Venipuncture / Unknown 05/22/2025 11:18 AM EDT 05/22/2025 1:31 PM EDT us Nazia Doherty MD LAB BLOOD ORDERABLES Fin al Result [facility] [address] [place] [address], [place] [phone] * (ABNORMAL) Sedimentation rate (05/22/2025 11:18 AM EDT) Pathologist [facility] Sed Rate 36(H) 0 - 15 mm/hr LAB HEMETOLOGY METHOD 05/22/2025 2:06 PM EDT [facility] Blood Venous blood specimen / Unknown Venipuncture / Unknown 05/22/2025 11:18 AM EDT 05/22/2025 1:31 PM EDT Tomer Allan MD LAB BLOOD ORDERABLES Final Result Performing Organization Address City/[facility]/ZIP Co de Phone Number [facility] [address] [place] [address], [place] [phone] * (ABNORMAL) Reticulocyte count (05/22/2025 11:18 AM EDT) Pathologist [facility] Retic Ct Abs 0.070 0.030 - 0.090 M/mcL LAB HEMETOLOGY METHOD 05/22/2025 1:54 PM EDT [facility] Retic Ct Pct 1.4 0.7 - 1.7 % LAB HEMETOLOGY METHOD 05/22/2025 1:54 PM EDT [facility] Immature Retic Fract 14.7 2.3 - 15.9 % LAB HEMETOLOGY METHOD 05/22/2025 1:54 PM EDT [facility] Reticulocyte Hemoglobin 26.0(L) >29.0 pcg LAB HEMETOLOGY METHOD 05/22/2025 1:54 PM EDT [facility] Blood Venous blood specimen / Unknown Venipuncture / Unknown 05/22/2025 11:18 AM EDT 05/22/2025 1:31 PM EDT Tomer Allan MD LAB BLOOD ORDERABLES Final Result Performing Organization Address City/[facility]/ZIP Co de Phone Number [facility] [address] [place] [address], [place] [phone] * Rheumatoid factor (05/22/2025 11:18 AM EDT) [facility] Rheumatoid Factor <10.0 <15.0 I Unit/mL LAB CHEMISTRY METHOD 05/22/2025 2:42 PM EDT [facility] Blood Venous blood specimen / Unknown Venipuncture / Unknown 05/22/2025 11:18 AM EDT 05/22/2025 1:31 PM EDT Tomer Allan MD LAB BLOOD ORDERABLES Final Result [facility] [address] [place] [address], [place] [phone] * Immunofixation electrophoresis serum (05/22/2025 11:18 AM EDT) [facility] Immunofixation Result, Serum No monoclonal immunoglobulins detected. LAB CHEMISTRY METHOD 05/23/2025 10:28 AM EDT [facility] Blood Venous blood specimen / Unknown Venipuncture / Unknown 05/22/2025 11:18 AM EDT 05/22/2025 1:31 PM EDT Tomer Allan MD LAB BLOOD ORDERABLES Final Result [facility] [address] [place] [address], [place] [phone] * Immunoglobulins IgG, IgA, IgM (05/22/2025 11:18 AM EDT) [facility] Total IgG 937 549 - 1,584 mg/dL LAB CHEMISTRY METHOD 05/22/2025 2:42 PM EDT [facility] IgA 258 61 - 348 mg/dL LAB CHEMISTRY METHOD 05/22/2025 2:42 PM EDT [facility] IgM 134 23 - 259 mg/dL LAB CHEMISTRY METHOD 05/22/2025 2:42 PM EDT [facility] Blood Venous blood specimen / Unknown Venipuncture / Unknown 05/22/2025 11:18 AM EDT 05/22/2025 1:31 PM EDT Tomer Allan MD LAB BLOOD ORDERABLES Final Result Performing Organization Address [facility]/ZIP Co de Phone Number [facility] [address] [place] [address], [place] [phone] * Thyroid stimulating hormone (05/22/2025 11:18 AM EDT) Pathologist [facility] TSH 1.10 0.40 - 4.00 mcIU/mL LAB CHEMISTRY METHOD 05/22/2025 3:48 PM EDT [facility] Blood Venous blood specimen / Unknown Venipuncture / Unknown 05/22/2025 11:18 AM EDT 05/22/2025 1:31 PM EDT us Tomer Allan MD LAB BLOOD ORDERABLES Final Result Performing Organization Address [facility] Co de Phone Number [facility] [address] [place] [address], [place] [phone] * Protein electrophoresis, serum (05/22/2025 11:18 AM EDT) Pathologist [facility] Total Protein 7.5 6.0 - 8.0 g/dL LAB CHEMISTRY METHOD 05/24/2025 1:54 PM EDT [facility] Albumin, Serum 3.8 2.9 - 4.1 g/dL LAB CHEMISTRY METHOD 05/24/2025 1:54 PM EDT [facility] Alpha 1 Globulin (g/dL) 0.2 0.1 - 0.5 g/dL LAB CHEMISTRY METHOD 05/24/2025 1:54 PM EDT [facility] Alpha 2 Globulin (g/dL) 1.2 0.7 - 1.5 g/dL LAB CHEMISTRY METHOD 05/24/2025 1:54 PM EDT [facility] Beta (g/dL) 1.4 0.7 - 1.5 g/dL LAB CHEMISTRY METHOD 05/24/2025 1:54 PM EDT [facility] Gamma Globulin (g/dL) 0.9 0.7 - 1.9 g/dL LAB CHEMISTRY METHOD 05/24/2025 1:54 PM EDT [facility] SPEP Interpretation Essentially normal pattern. No M-Jase seen. LAB CHEMISTRY METHOD 05/24/2025 1:54 PM EDT [facility] Blood Venous blood specimen / Unknown Venipuncture / Unknown 05/22/2025 11:18 AM EDT 05/22/2025 1:31 PM EDT Tomer Allan MD LAB BLOOD ORDERABLES Final Result Performing Organization Address [facility]/ZIP Co de Phone Number [facility] [address] [place] [address], [place] [phone] * Protein, total (05/22/2025 11:18 AM EDT) [facility] Total Protein 7.5 6.0 - 8.0 g/dL LAB CHEMISTRY METHOD 05/22/2025 5:20 PM EDT [facility] Blood Venous blood specimen / Unknown Venipuncture / Unknown 05/22/2025 11:18 AM EDT 05/22/2025 1:31 PM EDT us Tomer Allan MD LAB BLOOD ORDERABLES Final Result Performing Organization Address [facility]/ZIP Co de Phone Number [facility] [address] [place] [address], [place] [phone] * Lactate dehydrogenase (05/22/2025 11:18 AM EDT) [facility] LDH 165 120 - 246 unit/L LAB CHEMISTRY METHOD 05/22/2025 2:13 PM EDT [facility] Blood Venous blood specimen / Unknown Venipuncture / Unknown 05/22/2025 11:18 AM EDT 05/22/2025 1:31 PM EDT Tomer Allan MD LAB BLOOD ORDERABLES Final Result Performing Organization Address [facility]/ZIP Nh de Phone Number [facility] [address] [place] [address], [place] [phone] * (ABNORMAL) Haptoglobin (05/22/2025 11:18 AM EDT) Haptoglobin 224(H) 16 - 200 mg/dL LAB CHEMISTRY METHOD 05/22/2025 2:42 PM EDT [facility] Blood Venous blood specimen / Unknown Venipuncture / Unknown 05/22/2025 11:18 AM EDT 05/22/2025 1:31 PM EDT us Tomer Allan MD LAB BLOOD ORDERABLES Final Result Performing Organization Address [facility] de Phone Number [facility] [address] [place] [address], [place] [phone] * (ABNORMAL) Folate (05/22/2025 11:18 AM EDT) Folate >20.0(H) 2.8 - 17.0 ng/ml LAB CHEMISTRY METHOD 05/22/2025 2:42 PM EDT [facility] Blood Venous blood specimen / Unknown Venipuncture / Unknown 05/22/2025 11:18 AM EDT 05/22/2025 1:31 PM EDT us Tomer Allan MD LAB BLOOD ORDERABLES Final Result Performing Organization Address City/[facility]/ZIP Co de Phone Number [facility] [address] [place] [address], [place] [phone] * (ABNORMAL) Ferritin (05/22/2025 11:18 AM EDT) [facility] Ferritin 9(L) 26 - 388 ng/mL LAB CHEMISTRY METHOD 05/22/2025 2:45 PM EDT [facility] Blood Venous blood specimen / Unknown Venipuncture / Unknown 05/22/2025 11:18 AM EDT 05/22/2025 1:31 PM EDT Tomer Allan MD LAB BLOOD ORDERABLES Final Result [facility] [address] [place] [address], * Vitamin B12 (05/22/2025 11:18 AM EDT) [facility] Vitamin B-12 346 250 - 900 pcg/mL LAB CHEMISTRY METHOD 05/22/2025 2:42 PM EDT [facility] Blood Venous blood specimen / Unknown Venipuncture / Unknown 05/22/2025 11:18 AM EDT 05/22/2025 1:31 PM EDT Nazia Doherty MD LAB BLOOD ORDERABLES Fin al Result [facility] [address] [place] [address], [place] [phone] * (ABNORMAL) Comprehensive metabolic panel (05/22/2025 11:18 AM EDT) [facility] Sodium 141 133 - 145 mmol/L LAB CHEMISTRY METHOD 05/22/2025 2:45 PM EDT [facility] Potassium 4.2 3.5 - 5.5 mmol/L LAB CHEMISTRY METHOD 05/22/2025 2:45 PM EDT [facility] Chloride 106 96 - 110 mmol/L LAB CHEMISTRY METHOD 05/22/2025 2:45 PM [facility] CO2 25 21 - 32 mmol/L LAB CHEMISTRY METHOD 05/22/2025 2:45 PM [facility] Anion Gap 10 3 - 11 LAB CHEMISTRY METHOD 05/22/2025 2:45 PM [facility] Glucose 197(H) 70 - 100 mg/dL LAB CHEMISTRY METHOD 05/22/2025 2:45 PM [facility] BUN 17 5 - 25 mg/dL LAB CHEMISTRY METHOD 05/22/2025 2:45 PM [facility] Creatinine 1.47(H) 0.70 - 1.30 mg/dL LAB CHEMISTRY METHOD 05/22/2025 2:45 PM [facility] eGFR 59(L) >=60 mL/min/1. 73m2 LAB CHEMISTRY METHOD 05/22/2025 2:45 PM [facility] Comment:Calculation based on the Chronic Kidney Disease Epidemiology Collaboration (CKD-EPI) equation refit without adjustment for race. BUN/Creatinine Ratio 11.6 LAB CHEMISTRY METHOD 05/22/2025 2:45 PM [facility] Calcium 8.9 8.5 - 10.5 mg/dL LAB CHEMISTRY METHOD 05/22/2025 2:45 PM [facility] AST (SGOT) 9(L) 10 - 42 unit/L LAB CHEMISTRY METHOD 05/22/2025 2:45 PM [facility] ALT (SGPT) 18 10 - 60 unit/L LAB CHEMISTRY METHOD 05/22/2025 2:45 PM [facility] Alkaline Phosphatase 212(H) 42 - 121 unit/L LAB CHEMISTRY METHOD 05/22/2025 2:45 PM [facility] Total Protein 7.4 6.0 - 8.0 g/dL LAB CHEMISTRY METHOD 05/22/2025 2:45 PM [facility] Albumin 3.8 3.2 - 5.0 g/dL LAB CHEMISTRY METHOD 05/22/2025 2:45 PM EDT [facility] Total Bilirubin 1.3 0.0 - 1.4 mg/dL LAB CHEMISTRY METHOD 05/22/2025 2:45 PM EDT [facility] Blood Venous blood specimen / Unknown Venipuncture / Unknown 05/22/2025 11:18 AM EDT 05/22/2025 1:31 PM EDT us Tomer Allan MD LAB BLOOD ORDERABLES Final Result [facility] [address] [place] [address], [place] [phone] * Pulmonary function testing: Carbon Monoxide Diffusing Capacity, Nitrogen Wash Out, Spirometry with Bronchodilator, Vital Capacity Test (05/22/2025 9:23 AM EDT) Impressions Edy Perales MD - 05/22/2025 9:23 AM EDT 05/22/2025 Spirometry FEV1 is 49% predicted, FVC 65% predicted, FEV1/FVC ratio is decreased, there is no significant improvement in FEV1 post bronchodilators Lung volumes TLC is 67% predicted, RV/TLC 130% predicted Diffusion DLCO is 49% predicted, DLCO/VA is 82% predicted In summary, this pulm function test shows mod/severe obstructive changes with corresponding decline in total lung capacity. This could represent combined obstructive and restrictive lung disease us Marlene Jiménez MD PFT ORDERABLES Final Result * (ABNORMAL) Lipid panel with reflex to direct LDL (03/09/2025 2:19 PM EDT) Cholesterol 157 0 - 200 mg/dL LAB CHEMISTRY METHOD 03/09/2025 3:41 PM EDT [facility] Triglycerides 163(H) 0 - 150 mg/dL LAB CHEMISTRY METHOD 03/09/2025 3:41 PM EDT [facility] HDL 70 >=40 mg/dL LAB CHEMISTRY METHOD 03/09/2025 3:41 PM EDT [facility] LDL Calculated 54 0 - 100 mg/dL LAB CHEMISTRY METHOD 03/09/2025 3:41 PM EDT [facility] VLDL Cholesterol August 32.6 mg/dL LAB CHEMISTRY METHOD 03/09/2025 3:41 PM EDT [facility] Non HDL Chol. (LDL+VLDL) 87 <145 mg/dL LAB CHEMISTRY METHOD 03/09/2025 3:41 PM EDT [facility] Chol/HDL Ratio 2.2 0.0 - 4.4 LAB CHEMISTRY METHOD 03/09/2025 3:41 PM EDT [facility] Blood Venous blood specimen / Unknown Venipuncture / Unknown 03/09/2025 2:19 PM EDT 03/09/2025 2:37 PM EDT us Dank Nguyen MD LAB BLOOD ORDERABLES Final Resul t [facility] [address] [place] [address], [place] [phone] * (ABNORMAL) Hemoglobin A1c (03/09/2025 2:19 PM EDT) Hemoglobin A1C 12.5(H) <6.5 % LAB CHEMISTRY METHOD 03/09/2025 9:35 PM EDT [facility] Mean Bld Glu Estim. 312 mg/dL LAB CHEMISTRY METHOD 03/09/2025 9:35 PM EDT [facility] Blood Venous blood specimen / Unknown Venipuncture / Unknown 03/09/2025 2:19 PM EDT 03/09/2025 2:40 PM EDT us Dank Nguyen MD LAB BLOOD ORDERABLES Final Resul t [facility] [address] [place] [address], [place] [phone] * Urine Albumin Creatinine Ratio (05/06/2024) Urine Albumin Creatinine Ratio Abstracted Historical Provider HEALTH MAINTENANCE Final Result * HIV Screening (05/06/2024) HIV Screening Abstracted Historical Provider MD HEALTH MAINTENANCE Final Result * Hepatitis C Screening (05/06/2024) Hepatitis C Screening Abstracted Historical Provider MD HEALTH MAINTENANCE Final Result * Depression Screening (04/29/2024) Pathologist [facility] Depression Screening Abstracted Historical Provider HEALTH MAINTENANCE Final Result from Last 3 Months or Most Recently Relevant to Health Maintenance Insurance [facility] [employer] Care Teams Consular Officer Relationship Specialty Start Date End Date Dank Nguyen MD [address] [facility] [address] [place] [address] PCP - General Internal Medicine 04/23/21
--- OUTSIDE RECORDS SUMMARY | 2025-08-22 12:45 | XMS_ITS | Encounter Summary ---
Author Organization [facility] Address [address] [place] [address] Phone Care Team Providers Care Lead Ramp Service Man Name Role Phone Kassi Bal Unavailable Pcp, Unknown Primary Care Provider Dank Potter MD Primary Care Provider [phone] Encounter Details Date Type Department Care Team (Late st Contact Info) Description 02/01/2022 Procedure Pass [facility], Ct Scan - [facility] [place] [address] [place] [address] Social History Tobacco Use Types Packs/Day Years Used Date Smoking Tobacco: Every Day Cigarettes 0.3 15 Smokeless Tobacco: Never Alcohol Use Standard Drinks/Week Comments Yes 0 (1 standard drink = 0.6 oz pur e alcohol) socially Sex and Gender Information Value Date Recorded Sex Assigned at Male 11/30/2017 9:36 AM EST Legal Sex Male 11:15 AM EST Gender Identity Male 11/30/2017 9:36 AM EST Sexual Orientation Straight 11/30/2017 9: 36 AM EST documented as of this encounter Functional Status * Calculated C-SSRS Risk Score (Lifetime/Recent) Answer Date of Assessment Author No Risk Indicated 02/01/2022 5:46 AM EST Olga Brown RN * Ferguson Suicide Severity Rating Scale (Screener/Recent Self-Report) Question Answer Date of Assessment Author 1. Wish to be (Past 1 Month) No 02/01/2022 5:46 AM EST Olga Lawrence RN 2. Non-Specific Active Suicidal Thoughts (Past 1 Month) No 02/01/2022 5:46 AM Olga Chapa RN 6. Suicidal Behavior (Lifetime) No 02/01/2022 5:46 AM Olga Chapa RN documented as of this encounter Plan of Treatment Not on file documented as of this encounter Visit Diagnoses Not on filedocumented in this encounter Additional Health Concerns Assessment Noted Time PHQ-9 Depression Total Score: 6 01/26/20 2:43 PM EST PHQ-2 Depression Total Score: 0 03/24/20 4:03 PM EDT documented as of this encounter Care Teams Lead Ramp Service Man Relationship Specialty Start Date End Date Pcp, Unknown PCP - General 02/01/22 07/06/22 Dank Nguyen MD [address] [place] [address] PCP - General Internal Medicine 07/07/22 Kassi Bal [address] [place] [phone] [email or web address] [facility] Electrical Engineer 01/20/18 documented as of this encounter Additional Source Comments The information contained in this document represents components of the legal health record. It is not the complete legal health record.[facility]
--- OUTSIDE RECORDS SUMMARY | 2025-08-22 12:45 | XMS_ITS | Clinical Summary ---
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 90 tablet 3 09/09/20 18 Active lancets 26 gauge MiscIndications:Ty pe 1 diabetes mellitus with hyperglycemia Inject 1 each into the skin as needed. 100 each 2 09/09/20 18 Active insulin aspart U-100 (NOVOLOG) 100 unit/mL InPn injection penIndications:typ e 2 diabetes mellitus Please take novolog with meals per sliding scale 30 mL 2 01/18/20 19 Active omeprazole (PRILOSEC) 20 MG capsuleIndications :Gastroesophageal reflux disease, esophagitis presence not specified Take 1 capsule (20 mg total) by mouth daily. 90 capsule 3 02/18/20 19 Active blood-glucose meter kitIndications:Typ e 1 diabetes mellitus with hyperglycemia Use as instructed 1 each 02/22/20 19 Active GLUCOSE BLOOD test strip 1 each by Miscellaneous route every morning. 100 strip 5 02/22/20 19 Active insulin pen needles, disposable, 31 gauge x 3/16 NdleIndications:Ty pe 1 diabetes mellitus with hyperglycemia 1 each by Miscellaneous route as needed. 100 each 2 02/22/20 19 Active insulin glargine (BASAGLAR KWIKPEN U-100 INSULIN) 100 unit/mL (3 mL) InPn injection penIndications:Typ e 1 diabetes mellitus with hyperglycemia Inject 40 Units under the skin nightly at bedtime. 36 mL 3 05/24/20 19 Active tadalafiL (CIALIS) 5 MG tabletIndications: Erectile dysfunction, unspecified erectile dysfunction type Take 1 tablet (5 mg total) by mouth daily as needed. 10 tablet 5 04/11/20 20 Active LORazepam (ATIVAN) 0.5 MG tablet Take 1 tablet (0.5 mg total) by mouth every 6 (six) hours as needed for anxiety. 12 tablet 02/04/20 22 Active Additional Information Patient not taking.Reported on 07/06/2022 ondansetron (ZOFRAN-ODT) 4 MG disintegrating tablet Take 1 tablet (4 mg total) by mouth every 8 (eight) hours as needed. 20 tablet 01/03/20 23 Active Active Problems Problem Noted Date Diagnosed Date Intractable nausea and vomiting 07/06/2022 Assessment & Plan (07/06/2022 3:20 PM EDT): Patient was admitted to [facility] in 2018 and he required a consent in January 2022, presentation most consistent with cyclic vomiting syndrome, patient was without a primary care physician at his last hospitalization he tells me he has one now in [place], he was asked to obtain a gastric emptying study but I do not believe that this happened -IV fluid resuscitation -IV Ativan -Zofran -Clear liquid diet -KUB pending -Consult GI if felt to be necessary -hot Showers Vomiting with nausea, not intractable 02/01/2022 Assessment & Plan (02/03/2022 8:30 AM EDT): Patient admitted to [facility] in 2018 with very similar clinical picture at that time felt to be cannabinoid hyperemesis syndrome or cyclic vomiting syndrome, nurse noted vomitus day prior contained food particles raising suspicion for potential gastric outlet obstruction or gastroparesis -Consult gastroenterology -Head CT negative -X-ray and KUB unremarkable -Continue IVF and clear liquid diet -Ativan for nausea and anxiety as well as Zofran -Hot showers Gastroesophageal reflux disease 02/18/2019 Assessment & Plan (07/06/2022 3:20 PM EDT): PPI Assessment & Plan (02/01/2022 1:51 PM EST): Continue PPI as prescribed. Assessment & Plan (02/18/2019 5:17 AM EDT): Complains of heartburn, feels like his food is stuck in his chest . He has been taking OTC omeprazole 20 mg for symptomatic relief; requests for omeprazole 20 mg prescription. Denies chest pain currently, but has been noting it for the past couple of weeks post prandial. Prescribed omeprazole 20 mg daily as needed. Cannabis abuse 03/24/2018 Assessment & Plan (07/06/2022 3:20 PM EDT): Patient notes he smokes marijuana every other day, likely contributing to his cyclic vomiting Assessment & Plan (03/25/2018 7:33 PM EDT): Current every day smoker of cannabis. States he has extremely stressful job and feels relaxed on smoking cannabis; usually smokes when he is back home after a stressful day. States he smokes five days a week and has been trying to wean down. States he was hospitalized on March 05, 2018, with complaint of abdominal pain, nausea and vomiting. Initially they were concerned that he could have diabetic ketoacidosis; however, vomiting was likely due to cannabis hyperemesis syndrome or cyclic vomiting syndrome. He was discharged on March 09, 2018. Strongly encouraged abstinence from cannabis; relevance explained. Recommended to engage in meditation or any other hobby (diabetic friendly cooking, riding or exercise); benefits discussed. 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 States he has not been taking citalopram lately, but is amenable to resuming it. Resume citalopram 40 mg daily; refills provided. Benefits reviewed. Assessment & Plan (03/25/2018 7:40 AM EDT): On citalopram 40 mg daily with minimal benefits. States he has extremely stressful job and feels relaxed on smoking cannabis. He has not tried any other medication in the past for anxiety and depression. Mentions he tried to exercise at gym in the past; however, discontinued it due to time constraint. His PHQ-2 score is zero and LEOBARDO-7 score is four today. Continue current management. Recommended to do meditation or engage in any other hobby (cooking, reading or exercise) that will keep his mind occupied and will help him to relax. Strongly encouraged abstinence from cannabis; relevance explained. Assessment & Plan (01/26/2018 9:28 AM EST): On citalopram 40 mg one tablet daily, since two months with minimal benefits. Was on citalopram 20 mg earlier. Requests for refills. PHQ-2 score is 6 today; however, was 8 on e-visit it. LEOBARDO-7 score is 3, today. Continue current management. Pts symptom scores improving on SSRI. Refills provided at request. Recommended to touch base with Kassi Bal, collab patient care provider. Pt works for most of the day and so a message was sent to Kassi re: best times to contact pt. Pt will benefit from therapy which I am hoping Kassi can help connect the pt with. Assessment & Plan (01/12/2018 10:30 AM EST): eVisit Summary Patient: Darren Yuen ( ) Clinician: Dr. Americo Garcia Questionnaire: Anxiety/Depression (Primary Care) Completed by Patient: 01/07/2018 Reviewed by Clinician: 01/08/2018 12:09 p.m. Follow-up: No further action requested. Another eVisit scheduled for 02/05/2018. Dr. Garcia spoke with the patient. Note from Dr. Garcia: Dear Darren, We spoke today by telephone about your anxiety/depression. Overall your scores are improving with the citalopram. Please continue to take this medication. I have sent refills to your pharmacy for 40 mg tablets, that way you can just take 1 tablet a day. In addition to the medication, our collaborative behavioral health care coordinator will be reaching out to you. She will also be assessing your symptoms and she will be able to help link yo you to a therapist in the community so that we get you feeling even better than you are now! Best, Dr. Garcia Patient Responses Overall, how have you been feeling since your last visit? The same Over the last two weeks, how often have you been bothered by the following problems? Feeling nervous, anxious, or on edge Several days Not being able to sleep or control worrying Several days Worrying too much about different things Several days Trouble relaxing Several days Being so restless that it is hard to sit still Not at all Becoming easily annoyed or irritable Several days Feeling afraid, as if something awful might happen Several days Calculated GAD7 Score 6 How difficult have these problem(s) made it for you to do your work, take care of things at home, or get along with other people? Somewhat difficult Over the past two weeks, how severe has your anxiety been? 1.0 Is there anything in particular that brings on feelings of anxiety? Sexual problems ? Job problems ? Financial problems ? Illness ? Over the last two weeks, how often have you been bothered by any of the following problems? Little interest or pleasure in doing things you usually enjoy Several days Feeling down depressed or hopeless Several days Trouble falling sleep, trouble staying asleep, or sleeping too much Several days Feeling tired or having little energy Nearly every day Poor appetite or overeating Several days Feeling bad about yourself-- or that you are a failure or have let yourself or your family down Several days Trouble concentrating on things, such as reading the newspaper or watching television Not at all Moving or speaking so slowly that other people could have noticed? Or the opposite-being so fidgety or restless that you have been moving around a lot more than usual Not at all Thoughts that you would be better off or hurting yourself in some way Not at all Calculated PHQ9 Score 8 How difficult have these problem(s) made it for you to do your work, take care of things at home, or get along with other people? Not difficult at all Over the past two weeks, how severe has your depression been? 4.0 Are you having any other new anxiety or depression symptoms since your last visit? No Please select any anxiety or antidepression medication(s) prescribed for you: Other ? Please list the medication(s) and total daily dose you are taking: Forgot the name Are you taking the antianxiety or antidepression medications as prescribed? No Why not? None of the above ? Are you experiencing any side effects from these medications? No Were there any changes made to your antianxiety or antidepression medication(s) or use instructions since your last visit? Yes Please explain...: Higher dosage How difficult is it for you to follow your prescribed treatment plan? 4.0 Have there been any changes to your other prescription medications (if any) since your last visit? No Are you doing any non-medication therapy or taking any lanl-ebh-wtoqkyg medication to treat your anxiety or depression? No Are you currently speaking with a mental health specialist (ex. psychologist, therapist, web content & social media manager)? No Since your last visit have you been: Seen in the ER or hospital ? Please explain where and when: Start vomiting and nausea Do you have any other questions for your doctor you want to ask BEFORE your next visit? No Daytime phone number [phone] Assessment & Plan (12/15/2017 11:51 AM EST): eVisit Summary Patient: Darren Yuen ( ) Clinician: Dr. Americo Garcia Questionnaire: Anxiety/Depression (Primary Care) Completed by Patient: 12/07/2017 Reviewed by Clinician: 12/10/2017 5:25 p.m. Follow-up: No further action requested. Another eVisit scheduled for 01/07/2018. Note from Dr. Garcia: Dear Darren, Thanks for the response. It seems like your condition has not improved. I would recommend that you increase your citalopram dose. Right now you are taking 20 mg (or two 10 mg tablets) daily. I would like you to start taking 40 mg daily. I will send you a new prescription to your local pharmacy ([facility] in [place]). You will receive the 40 mg tablets. Please continue to take this daily as sometimes it can take 6-8 weeks to feel the effects of these medications. We will then reassess this issue in 1 month with another E-visit. Best, Dr. Garcia Patient Responses Overall, how have you been feeling since your last visit? The same Over the last two weeks, how often have you been bothered by the following problems? Feeling nervous, anxious, or on edge Several days Not being able to sleep or control worrying More than half of days Worrying too much about different things Nearly every day Trouble relaxing More than half of days Being so restless that it is hard to sit still Not at all Becoming easily annoyed or irritable More than half of days Feeling afraid, as if something awful might happen More than half of days Calculated GAD7 Score 12 How difficult have these problem(s) made it for you to do your work, take care of things at home, or get along with other people? Somewhat difficult Over the past two weeks, how severe has your anxiety been? 3.0 Is there anything in particular that brings on feelings of anxiety? Sexual problems ? Financial problems ? Illness ? Over the last two weeks, how often have you been bothered by any of the following problems? Little interest or pleasure in doing things you usually enjoy Several days Feeling down depressed or hopeless More than half of days Trouble falling sleep, trouble staying asleep, or sleeping too much More than half of days Feeling tired or having little energy Nearly every day Poor appetite or overeating More than half of days Feeling bad about yourself-- or that you are a failure or have let yourself or your family down More than half of days Trouble concentrating on things, such as reading the newspaper or watching television Not at all Moving or speaking so slowly that other people could have noticed? Or the opposite-being so fidgety or restless that you have been moving around a lot more than usual Not at all Thoughts that you would be better off or hurting yourself in some way Not at all Calculated PHQ9 Score 12 How difficult have these problem(s) made it for you to do your work, take care of things at home, or get along with other people? Not difficult at all Over the past two weeks, how severe has your depression been? 2.0 Are you having any other new anxiety or depression symptoms since your last visit? No Please select any anxiety or antidepression medication(s) prescribed for you: Other ? Please list the medication(s) and total daily dose you are taking: Citalopram Are you taking the antianxiety or antidepression medications as prescribed? Yes Are you experiencing any side effects from these medications? No Were there any changes made to your antianxiety or antidepression medication(s) or use instructions since your last visit? No How difficult is it for you to follow your prescribed treatment plan? 1.0 Have there been any changes to your other prescription medications (if any) since your last visit? No Are you doing any non-medication therapy or taking any ejzq-bhl-gqaglke medication to treat your anxiety or depression? No Are you currently speaking with a mental health specialist (ex. psychologist, therapist, web content & social media manager)? No Since your last visit have you been: Seen in the ER or hospital ? Please explain where and when: ER Do you have any other questions for your doctor you want to ask BEFORE your next visit? No Daytime phone number [phone] Assessment & Plan (11/05/2017 10:09 AM EST): PHQ-9 score is 8 and LEOBARDO-7 score is 2 today. Reports mood fluctuations and thinks he has depression Pt likely has mild depression and anxiety. Prescribed citalopram 10 mg; side effects and benefits reviewed. Advised to take one tablet daily for 1 week and then take two tablets daily at night. Informed that it may take 8 weeks for therapeutic effect with citalopram. Follow up with E visit after a month for review response to new medication. Erectile dysfunction 08/11/2017 Assessment & Plan (09/10/2018 6:51 AM EDT): On tadalafil 10 mg daily as needed. Continue current management; refills provided. Assessment & Plan (03/25/2018 7:41 AM EDT): On tadalafil 10 mg daily as needed and requests refill for it. 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 Continue tadalafil 10 mg daily as directed; prescription provided. Discussed insurance constraints associated with tadalafil procurement. Assessment & Plan (01/26/2018 6:08 AM EST): On tadalafil 5 mg one tablet daily without significant benefits. Requests to increase the dose. Could be due to diabetes mellitus, pathophysiology explained. Increased dose of tadalafil from 5 mg to 10 mg tablet, prescription provided. Assessment & Plan (11/05/2017 5:14 AM EST): States his insurance does not cover Tadalafil. Prescribed sildenafil 25 mg. Assessment & Plan (08/12/2017 5:45 AM EDT): Complains of erectile dysfunction. States the duration of penile erection varies during sexual intercourse; however, had reduced as compared to before. Denies morning erection. Symptoms could be due to vascular changes in penis from poorly controlled diabetes and smoking; pathophysiology explained. Obtain labs as ordered. Prescribed Sildenafil 25 mg (low dose). Suggested to cut in half if needed. Advised to seek immediate medical attention if the erection lasts for more than 90 minutes. Headache 08/11/2017 Assessment & Plan (08/12/2017 12:20 PM EDT): Complains of intermittent severe headache; attributes it to elevated blood glucose levels.Sxs may occasionally last for an entire day. Reports occasional photosensitivity. Denies fever, rhinorrhea, teary eyes or any sensitivity to sound during headache. Drinks one cup of coffee daily and denies any association of headache with coffee. Takes OTC Aspirin as needed. Does not use any Afrin nasal spray. Mentions he smokes regularly and drinks occasionally. Has tried to quit smoking. Reviewed the causes of headache like migraine, smoking cessation. Pt is likely experiencing a tension-type KRISHNA Advised to take either OTC Ibuprofen, Acetaminophen or Naproxen for headache relief Discontinue Aspirin. Multiple nevi 05/05/2017 Assessment & Plan (02/18/2019 5:16 AM EDT): States he has not been able to follow up with a education site manager for multiple freckles. Ambulatory referral to [facility] Dermatology provided for a skin check; significance explained. Assessment & Plan (01/26/2018 9:29 AM EST): Has multiple freckles all over his body. Recommended to visit education site manager for further evaluation and management, contact number provided. Assessment & Plan (11/05/2017 5:15 AM EST): Has multiples freckles all over the body. Denies history of skin cancer in family. Ambulatory referral to [facility] Dermatology provided. Assessment & Plan (05/06/2017 7:40 AM EDT): He has multiple freckles all over the body with areas of sunburn. Does not wear sunblock while out in the sun regularly. Due to his job, the pt states he is always out in the sun. Increase in freckles is likely due to sun exposure. Advised to apply sunblock with SPF 30 or above daily, especially to sun-exposed areas, for prevention of skin cancer. Recommended to visit education site manager for further treatment and evaluation; referral provided to [facility] Dermatology. Health care maintenance 05/05/2017 Assessment & Plan (02/18/2019 10:14 AM EDT): Screening labs: Reviewed and discussed prior labs. Obtain fasting lipid panel. Followup: Follow up in four months for an annual physical examination, or sooner as needed. Assessment & Plan (09/11/2018 9:51 AM EDT): Immunization: Due for a flu vaccine. Offered flu vaccine, he declined today owing to the side effects that he experienced after his last flu vaccine. Assessment & Plan (11/05/2017 5:35 AM EST): Cancer screening: Below the recommended age for colon, lung or prostate cancer screening. Ophthalmology screening: Wears contact lenses. States he visited an marine gear keeper in the past for diabetic eye examination. Advised to undergo eye checkup annually. Immunizations: Up-to-date with flu vaccine. Due for Tdap and pneumonia vaccine. Administered Tdap and PPSV23 intramuscularly in non-dominant left arm today. Informed about the local soreness following the vaccination. Screening labs: Lipid profile and other labs obtained in April 2017 were within acceptable limits. Reviewed recent labs results. Obtain vitamin D levels. Reviewed current medications. Follow up: Follow up in one month via e-visit and in 6 months or sooner if needed. Assessment & Plan (08/12/2017 5:47 AM EDT): Immunization: Administered flu vaccine intramuscularly in non-dominant left arm. Informed about probable local soreness post vaccination. Recommended flu vaccine annually in fall. Assessment & Plan (05/06/2017 5:34 AM EDT): Screening labs: Obtain basic metabolic panel and fasting lipid panel. Follow up in 6 months for annual physical examination or sooner if needed. Cigarette nicotine dependence without complicati on 05/05/2017 Assessment & Plan (07/06/2022 3:20 PM EDT): Cessation discussed -Nicotine transdermal Assessment & Plan (11/05/2017 10:09 AM EST): Smokes 0.25 packs per day; he has been smoking for 15 years. States he does not use nicotine lozenges or patches as it was not covered under insurance. He was prescribed Wellbutrin (bupropion) which he did not take owing to insurance issues. Advised to use nicotine patches once daily to help with cravings and take off at night. Suggested to use nicotine gums or lozenges to curb cravings. Explained rationale for treatment with nicotine gums which mimics psychologic and motor trigger of hand to mouth sensation with oral stimulation given by cigarettes. Encouraged to set up a quit date. Recommended to visit smoking cessation counselor Lexi; however, he declines at this time Assessment & Plan (08/12/2017 12:18 PM EDT): He is currently a smoker. Mentions he smokes regularly and drinks occasionally. Reports he has cut down on smoking. Earlier he smoked 1 pack in 2 days and now the same pack lasts for a week as he smokes 3 to 4 cigarettes in a day. States he does not use Nicotine lozenges or patches as it was not covered under insurance. Prescribed Bupropion 150 mg once a day for three days followed by one pill twice a day. Advised to decide a date to quit and start medicine 1 week before the quit date. Informed it could take 6 months for significant effects. Discussed about complications of smoking. Ambulatory referral provided to [facility] ( Smoking, Tobacco Cessation). Benefits explained. Assessment & Plan (05/06/2017 7:42 AM EDT): He is a current everyday smoker and attributes it to his stressful job; smokes 0.25 packs per day. He has been smoking since 15 years. Willing to quit smoking. Reports he had quit smoking for about a year in the past by going cold turkey and amenable for Nicotine patches at present. Prescribed Nicotine patch 14 mg dose and Nicotine lozenge as per patient preference; discussed how to use both and the reasoning behind using nicotine replacement therapy. Warned about possible cardiac side effects with smoking. Type 1 diabetes mellitus 11/24/2015 Assessment & Plan (07/06/2022 3:21 PM EDT): Continue Lantus although at decreased dose as patient is vomiting and not taking much orally -Continue sliding scale -Titrate as needed -Check TSH and A1c Assessment & Plan (02/03/2022 8:27 AM EDT): Continue half dose Lantus and sliding scale -Glucose within acceptable range Assessment & Plan (02/18/2019 10:13 AM EDT): Receives sliding scale insulin aspart with meals. Mentions his insulin glargine was uptitrated from 30 units nightly to 40 units nightly while he was at the [facility]. Has not followed up with post partum nurse, Dr. Mert Dickson, since February 2018. Had a diabetic eye exam in December 2017. Has never had a diabetic foot exam. Requests for test strips, blood-glucose meter kit and insulin pen needles. His blood glucose levels are elevated. HbA1c in August 2018 was 11.2 %. Poorly controlled. Reviewed and discussed prior HbA1c level. Obtain labs as mentioned below; significance explained. Continue current management. Refills provided. Ambulatory referral to [facility] Den Diabetic Retinopathy and [facility] Orthopaedics provided for diabetic eye and foot exam respectively. Advised to call and set up an appointment with [facility] Diabetes [facility]; contact details provided. Assessment & Plan (01/03/2019 3:55 PM EST): Called to discuss upcoming group visit program; no answer Assessment & Plan (09/11/2018 9:50 AM EDT): Takes insulin glargine 30 units nightly, and uses insulin aspart for sliding scale. Follows up with [facility], last saw post partum nurse, Dr. Dickson, in February 2018. States he was homeless for about two months, lived in residential, and was not eating properly. He was still taking his insulin however during that time. He has been living in a rented room now, and has been trying to get back to his preious routine for his DM care. States he has been taking his medications diligently. Mentions he drinks ice coffee with cream and sugar daily which he knows is not good for his blood sugars. Requests for refills of insulin pen needles, lancets, and test strips. Obtain labs as mentioned below. Continue current management; refills provided. Continue to monitor blood glucose levels at home; refills for insulin pen needles, lancets, and FreeStyle test strips provided. Avoid ice coffee with cream and sugar, could consider drinking plain ice coffee or regular black coffee. Advised to call and set up an appointment with [facility]. Follow up with me in three months. Assessment & Plan (03/25/2018 7:31 PM EDT): On insulin aspart U-100 and insulin glargine. Follows up with [facility]. Blood work obtained on May 09, 2017, revealed HbA1c at 12.7%; however, it was 9.7% on March 05, 2018. His Rx has been complicated by cannabis use. He was recently hospitalized from March 05 - for vomiting that was initially c/f DKA, however, pt was not acidotic, likely suffered from cyclic vomiting syndrome 2/2 cannabis use. In addition to have the cyclic vomiting, the pt states that his cannabis use leads to the munchies as well which leads to an irregular pattern of blood sugar levels. States he has extremely stressful job and feels relaxed on smoking cannabis. States he has been trying to eat sugar free food; eats yogurt, peanuts and Jell-O. Continue current management. Strongly encouraged abstinence from cannabis; relevance explained. Continue to follow healthy diet. Cautioned against munchies with marijuana smoking given it can raise blood glucose level. Educated about systemic complications due to diabetes. Follow up in a month. Assessment & Plan (01/26/2018 9:27 AM EST): HEMOGLOBIN A1C Date Value Ref Range Status 11/02/2017 9.5 (H) 4.3 - 6.4 % Final On insulin glargine 30 units and insulin aspart U-100 unit/mL per sliding scale with meals. Requests for refills. Has mild diabetic retinopathy for which he visited an marine gear keeper. Continue current management, refills provided at request. Assessment & Plan (11/05/2017 10:08 AM EST): On insulin aspart sliding scale and insulin glargine at night. Monitors blood glucose by continuous glucometer device (recently placed earlier this week) with benefits. The device is located in his R upper arm. Reports one of the midnight reading at 201 mg/dL. His HbA1c was 9.5% on November 02, 2017; it was 12.7% in April 2017. Reports weight gain of about 15-20 lbs since we first met last April thanks to his better sugar control/insulin regimen. States he has made a lot of dietary changes as well in light of his DM. Has scheduled follow up appointment with the [facility] endocrine dept on 11/09. He has never consulted with manager architecture. Reviewed and discussed previous HbA1c. Continue current management. Encouraged and appreciated continuous blood glucose monitoring. Advised to follow up with post partum nurse on scheduled date. Ambulatory referral to [facility] Podiatry for DM foot care provided; relevance reviewed. Assessment & Plan (08/12/2017 12:17 PM EDT): On Insulin Aspart (NovoLog) sliding scale with meals (typically 10-15 U based on carbs) and Insulin Glargine (Lantus, Basaglar) 30 units at night. HbA1c obtained on May 09, 2017, was 12.7% whereas on July 20, 2017, was 11.3%. Mentions he visited post partum nurse, Dr. Dickson on July 20, 2017. During this visit the Insulin Glargine dosage was decreased from 40 units to 30 units. He was advised dietary modification that included restriction of carbohydrates and advised to maintain physical activity. Follows up with roller skater, Kirsten Faith with significant benefits and is due for a follow up this evening. Reports his morning blood glucose levels on home monitor are in range of 128 to 130 mg/dL. His weight was 151 lbs in May 2017 and is 175 lbs on today's visit. Continue current management. Refills provided. Continue follow up with the roller skater and post partum nurse. Discussed about complications of diabetes. Follow up in October 2017 for an annual physical examination. Assessment & Plan (05/06/2017 7:38 AM EDT): On Lantus insulin 38 units before breakfast and NovoLog insulin 8 units three times a day with meals; uses insulin pen for administration. In the past he was taking Metformin; however, it was discontinued as he had severe cough after 1-2 doses. He was diagnosed with diabetes in 2005. Mentions that his HbA1c was 14% at one point in the past. Mentions that his sugar level remains on the higher side with highest recorded reading of 500 mg/dL. Reports sweating, shakiness in hypoglycemic episode in the past with lowest blood sugar recorded as 30 mg/dL; he is aware about measures to be taken in such scenarios. Reports his weight remains around 165 lbs since the diagnosis of diabetes; however, it was 185-195 lbs before the diagnosis. Does not exercise regularly; however, he walks a lot. Has three meals in a day and states he has large portions for dinner compared to lunch. Mentions that he was advised to take 5 small meals per day; however, not able to follow due to his job, amenable for consultation with animal nutritionist. Obtain GAD65 antibody, C-peptide for evaluation of diabetes type. Obtain microalbumin/creatinine ratio, random urine and HbA1c level. Renewed prescription for Lantus insulin and NovoLog insulin for 90 days with 3 refills. . Ambulatory referral provided to [facility]; inform me if does not receive call for scheduling an appointment. Ambulatory referral provided to [facility] Nutrition Services for more targeted recommendation on diabetic diet; inform me if does not receive call for scheduling an appointment. Advised to avoid excessive sugar intake and recommended to follow proper diet for diabetes and weight management. Informed about symptoms of hypoglycemia and advised to always carry sugar with him for emergencies. Warned about increased cardiovascular risk with uncontrolled diabetes. Update me on Patient Hudson about recommendations from roller skater and nerve specialist. Resolved Problems Problem Noted Date Diagnosed Date Resolved Date Homeless 09/09/2018 02/17/2019 Assessment & Plan (09/11/2018 9:53 AM EDT): He was homeless for two months, was living in a residential, and now has been living in a rented room at someone's house. Feels safe, and has been taking his medications diligently. He wishes to move to his own apartment and has been saving up, however, his ex-gf was delinquent on his previous rent payments without him knowing and that has unfortunately affected his credit and has made it difficult for him to be accepted into a new apt. Ambulatory referral to [facility] provided for housing and financial assistance. Diarrhea 03/24/2018 02/17/2019 Assessment & Plan (03/25/2018 7:32 PM EDT): Reports bowel movements 4 to 5 times a day; usually immediately after eating and inquires if there is anything that will detoxify the gastrointestinal system. Obtain celiac screening test panel to gluten sensitivity. Significance explained. Recommended OTC loperamide, take half to one tablet as needed. Diabetic ketoacidosis withou t coma associated with type 1 diabetes mellitus 03/05/2018 03/07/2018 Pain in joint of right shoulder 01/26/2018 09/11/2018 Assessment & Plan (03/25/2018 7:33 PM EDT): Complained of pain in right shoulder joint since three months and was advised physical therapy. States he was not able to complete the physical therapy due to hospitalization and requests referral for it. Ambulatory referral provided to [facility] Physical Therapy. Assessment & Plan (01/26/2018 9:27 AM EST): Complaints of pain in right shoulder joint since a month. States he feels that his shoulder will pop out when he lays on it. Tries to avoid over exertion of the hand or laying on the affected side. Mentions he is right-hand dominant. States he took aspirin for pain management. Could be due to muscle strain. Expected course of symptom recovery explained. Advised stretching exercises to prevent frozen shoulder, pathophysiology explained. Recommended to take ibuprofen (Motrin, Advil) instead of aspirin. May also take naproxen (Aleve) to reduce inflammation and shoulder pain. Significance explained. Encouraged to use cold compresses for a week to reduce swelling and switch to hot compresses, relevance explained. If symptoms are not relieved for next few weeks, advised to contact me. We may consider to obtain an MRI to rule out tendinopathy or any other underlying cause. Ambulatory referral to [facility] Physical Therapy provided for further evaluation and management. Follow up with me in 6 months or sooner if needed. Intractable cyclical vomiting with nausea 01/25/2018 02/17/2019 Assessment & Plan (01/26/2018 9:30 AM EST): Mentions he was admitted in the ED at the [facility] on December 22, 2017 for cyclical vomiting with nausea that was suspected to frequent marijuana use. However, he suspects it was d/t the flu vaccine that he received right before that episode of nausea. Pt states symptoms have since resolved. Follow up with me if symptoms recur. Myopia of both eyes 01/17/2018 09/11/20 18 Cotton wool spots 01/17/2018 01/25/2018 Scrotal pain 08/11/2017 01/25/2018 Assessment & Plan (08/12/2017 12:21 PM EDT): Complains of scrotal pain aggravated while walking. 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 States he feels like his testicles have increased in size and are filled with fluid. Denies any rashes or recent local trauma. Last sexual intercourse was yesterday. Reports a scrotum ultrasound obtained in past was normal. Symptoms could be due hypersensitivity of nerves due to diabetic neuropathy. Exam without any erythema or evidence of varicocele. No overt swelling noted on exam. Obtain scrotum ultrasound. Immunizations Immunization Administration Dates Next Due Hepatitis B Adult 03/19/2016,02/16/2016 INFLUENZA, SPLIT VIRUS, TRIVALENT W/ PRESERVATIV E IM 09/14/2012,10/11/2010 Influenza Quadrivalent Preservative Free IM 07/24 Pneumococcal polysaccharide PPSV23 11/04/2017 Td (adult),2 Lf Tetanus Toxoid, PF, Adsorbed 11/2007 Tdap 11/04/2017 Family History Medical History Relation Comments Diabetes Maternal Grandfather Prostate cancer Maternal Grandfather Diabetes Mother Relation Status Comments Maternal Grandfather Mother Social History Tobacco Use Types Packs/Day Years Used Date Smoking Tobacco: Every Day Cigarettes 0.3 15 Smokeless Tobacco: Never Tobacco Cessation:Ready to Q uit: No; Counseling Given: No Alcohol Use Standard Drinks/Week Comments Yes 0 (1 standard drink = 0.6 oz pur e alcohol) socially Education Answer Date Recorded Are you interested in more education? Not on abhilash e 03/20/2023 Are you concerned about learning? Not on file 03/20/2023 No 03/20/2023 No 03/20/2023 Digital Access Answer Date Recorded No 04/20/2023 No 04/20/2023 No 04/20/2023 Reliable internet access at home? Not on file 04/20/2023 Device with a working camera? Not on file Sex and Gender Information Value Date Recorded Sex Assigned at Male 11/30/2017 9:36 AM EST Legal Sex Male 11:15 AM EST Gender Identity Male 11/30/2017 9:36 AM EST Sexual Orientation Straight 11/30/2017 9: 36 AM EST Last Filed Vital Signs Vital Sign Reading Time Taken Comments Blood Pressure 137/89 01/03/2023 2:24 PM EST Pulse 84 01/03/2023 2:24 PM EST Temperature 37.4 C (99.3 F) 01/03/2023 2:24 PM EST Respiratory Rate 18 01/03/2023 4:58 AM EST Oxygen Saturation 100% 01/03/2023 2:24 PM EST Inhaled Oxygen Concentration - - Weight 72.6 kg (160 lb) 07/06/2022 4:32 AM EDT Height 172.7 cm (5' 8 ) 07/06/2022 4:32 AM EDT Body Mass Index 24.33 07/06/2022 4:32 AM EDT Plan of Treatment Health Maintenance Due Date Last Done Comments BLOOD PRESSURE 1977 SMOKING Hx and SMOKELESS TOBACCO SCREENING 1990 HEPATITIS C SCREENING 1995 DIABETIC EYE EXAM 01/15/2019 01/15/2018, , 01/15/2018, Additional history exists DEPRESSION SCREENING 03/24/2019 03/24/2018, 01/26/20 URINE MICROALBUMIN/CREATININE RATIO 09/09/2019 09/09/2018, 05/09/2017 LIPID PANEL 02/18/2020 02/17/2019, 05/09/2017 PNEUMOCOCCAL VACCINES (0-49 years) (2 of 2 - PCV) 03/21/2022 03/21/2021, 11/04/2017 COLOGUARD 2022 COLONOSCOPY 2022 COLORECTAL CANCER SCREENING 2022 FIT TEST 2022 FOBT 2022 SIGMOIDOSCOPY 2022 VIRTUAL COLONOSCOPY 2022 HEMOGLOBIN A1C 10/07/2022 07/07/2022, 01/21, 02/17/2019, Additional history exists INFLUENZA VACCINE (#1) 2025 7, 09/14/2012, 10/11/2010 COVID-19 VACCINE (2 - season) 2025 10/29/2021 Adult Td,Tdap Booster 11/04/2027 11/04/2017, 008 HIV ONE-TIME SCREENING (18-65 YEARS) Completed 05/09/2017 HEPATITIS A VACCINES Aged Out No long er eligible based on patient's age to complete this topic HIB VACCINES Aged Out No longer eligi ble based on patient's age to complete this topic MENINGOCOCCAL VACCINES (ACWY) Aged Out No longer eligible based on patient's age to complete this topic MENINGOCOCCAL VACCINES (B) Aged Out N o longer eligible based on patient's age to complete this topic Medical Devices Not on file Procedures Procedure Name Priority Date/Time Associated Diagnosis Comments HEMOGLOBIN A1C Routine 07/07/2022 4:28 AM EDT LIPID PANEL Routine 02/17/2019 7:22 PM EDT Health care maintenance MICROALBUMIN/CREATI NINE RATIO, RANDOM URINE Routine 09/09/2018 5:53 PM EDT Type 1 diabetes mellitus with hyperglycemia from Last 3 Months or Most Recently Relevant to Health Maintenance Results * (ABNORMAL) Hemoglobin A1c (07/07/2022 4:28 AM EDT) HEMOGLOBIN A1C 9.6(H) 4.3 - 5.8 % [facility] Blood 07/07/2022 4:28 AM EDT 07/07/2022 4:48 AM EDT Saad Nye MD LAB BLOOD ORDERABLES Final Result [facility] [address] [place] [address] * (ABNORMAL) Lipid panel (02/17/2019 7:22 PM EDT) HDL 71 35 - 100 mg/dL [facility] CHOLESTEROL 146 <200 mg/dL [facility] TRIGLYCERIDES 35(L) 40 - 150 mg/dL [facility] LDL 68 50 - 129 mg/dL [facility] CARDIAC RISK RATIO 2.1 0.0 - 5.0 [facility] NON-HDL CHOLESTEROL 75 mg/dL [facility] Comment:NCEP ATP III guideli bianka suggest a non-HDL cholesterol goal 30 mg/dl higher than the patient-specific LDL goal. 02/17/2019 7:22 PM EDT 02/17/2019 7:34 PM EDT us Americo Garcia MD LAB BLOOD ORDERABLES Final Resu lt Performing Organization Address [facility]/ZIP Co de Phone Number [address] [address] * (ABNORMAL) Microalbumin/creatinine ratio, random urine (09/09/2018 5:53 PM EDT) URINE MICROALBUMIN 2.5(H) 0.0 - 2.0 mg/dL [facility] URINE CREATININE 307 mg/dL [facility] MICROALB/CRE RATIO 8.1 <30.0 mg/g Cre [facility] Urine 09/09/2018 5:53 PM EDT 09/09/2018 6:16 PM EDT us Americo Garcia MD URINE ORDERABLES Final Result [facility] [address] [place] [address] from Last 3 Months or Most Recently Relevant to Health Maintenance Insurance [place] [facility] [place] E[facility] [place] [facility] O [place] [employer] [place] EPO Advance Directives For more information, please contact: [phone] (9AM - 5PM [facility], Thursday-Thursday) * Full Code (Latest Code Status on File) Date Activated Date Inactivated Comments 07/06/2022 4:08 PM Question Answer Comments Code Status Confirmed With: Patient * Full Code Date Activated Date Inactivated Comments 02/01/2022 2:03 PM 07/06/2022 4:08 PM Question Answer Comments Code Status Confirmed With: Patient * Full Code (Presumed) Date Activated Date Inactivated Comments 03/05/2018 11:55 PM 03/09/2018 5:42 PM Care Teams Slurry Plant Operator Relationship Specialty Start Date End Date Dank Nguyen MD [address] [place] [id number] PCP - General Internal Medicine 07/07/22 Kassi Bal [address] [place] [id number] [email or web address] Market Research Manager 01/20/18 Additional Source Comments The information contained in this document represents components of the legal health record. It is not the complete legal health record.[facility]
== END 2025-08-22 11:54 | disposition home or self-care (01) ==
LOC: HO.HKAS 11:17
PROVIDERS: PCP Internal Medicine; Referring Provider Internal Medicine; Visit Provider Internal Medicine Nephrology
DX: I10 Essential (primary) hypertension (principal); E11.22 Type 2 diabetes mellitus with diabetic chronic kidney disease; N18.30 Chronic kidney disease, stage 3 unspecified
CPT/HCPCS: 99204

== ENCOUNTER → 2025-08-22 11:17 | Outpatient (BNVA) | payer OTHER, SELFPAY | PROVIDERS: PCP Internal Medicine; Referring Provider Internal Medicine; Visit Provider Internal Medicine Nephrology | DX: E11.22 Type 2 diabetes mellitus with diabetic chronic kidney disease (principal); N18.30 Chronic kidney disease, stage 3 unspecified; I10 Essential (primary) hypertension | CPT/HCPCS: 99202 ==

== ENCOUNTER 2025-09-15 16:02 | Outpatient (REF) | payer OTHER, SELFPAY ==
--- NOTE | ~2025-09-15 | US_ITS ---
EXAMINATION: US RETROPERITONEAL LIMITED (RENAL ONLY) CLINICAL INFORMATION: Type 2 diabetes with chronic kidney disease. COMPARISON: None available. TECHNIQUE: Real-time imaging of the kidneys. FINDINGS: RIGHT KIDNEY: 9.7 x 4.5 x 5.2 cm (SAG x AP x TRV). The kidney is normal in size, contour, and echogenicity. Renal cortical thickness is normal. No calculi or focal parenchymal lesions. No hydronephrosis. There are vascular calcifications as per the technologist note. LEFT KIDNEY: 9.8 x 6.0 x 5.8 cm (SAG x AP x TRV). The kidney is normal in size, contour, and echogenicity. Renal cortical thickness is normal. No calculi or focal parenchymal lesions. No hydronephrosis. There are vascular calcifications as per the technologist note. US/US renal BI IMPRESSION: Vascular calcifications present in both kidneys. Otherwise, normal renal ultrasound. Electronically signed by: Rodger Aleman MD 09/15/2025 04:28 PM EDT
--- OUTSIDE RECORDS SUMMARY | 2025-09-15 17:10 | XMS_ITS | Clinical Summary ---
Author Organization [facility] Address [address] [place] [address] Care Team Providers Care Dynamics Ax Consultant Name Role Phone Dank Nguyen MD Primary [...] age to complete this topic Care Teams Dynamics Ax Consultant Relationship Specialty Start Date End Date Dank Nguyen MD PCP - General Internal Medicine 05/13/23
--- OUTSIDE RECORDS SUMMARY | 2025-09-15 17:10 | XMS_ITS | Clinical Summary ---
Author Organization [facility] Address [address] [place] [address] Phone Care Team Providers Care Trigonometry Teacher Name Role Phone Rebecca Parker Primary Care Provider [phone] Allergies Active Allergy Reactions Criticality Noted Date [...] been able to follow up with a shoe dyer for multiple freckles. Ambulatory referral to [facility] Dermatology provided for a skin check; [...] Visit [facility] [address] [place] [address] Fabian Haider MD [address] [place] [address] Health Maintenance Due Date Last Done Comments [...] Exam 03/08/2024 Diabetes: Hemoglobin A1C 06/08/2025 025, 03/09/2025, 05/06/2024, Additional history exists Influenza Vaccine (#1) 2025 7, 09/14/2012, 10/11/2010 Procedures Procedure Name Priority Date/Time Associated Diagnosis Comments SPECIAL CHEMISTRY Routine 03/08/2024 from Last 3 Months or Most Recently Relevant to Health Maintenance Results * (ABNORMAL) SPECIAL CHEMISTRY (03/08/2024) Hemoglobin A1C 8.3(H) 4.8 - 5.9 % [facility] 03/08/2024 03/09/2024 8:3 4 AM EDT Narrative [facility] - 03/09/2024 Unless otherwise specified, test(s) performed at: [facility], [address] [place], [place] [id number] TERMITE TREATER: Joe Guerrero M.D. For any questions, please call customer service at FREQUENCY:MONTHLY Resulting Agency Comment Specimen source: Blood us Micha Jiménez MD LAB BLOOD BANK TEST ORDERABLES F inal Result [facility] See order comments or contact performing lab Unknown, [place] from Last 3 Months or Most Recently Relevant to Health Maintenance Insurance [address] [place] [address] [employer] Commercial Medicaid [place] [facility] Medicaid Care Teams Trigonometry Teacher Relationship Specialty Start Date End Date Rebecca Parker [address] [place] [address] PCP - General Nurse Practitioner 08/10/24
--- OUTSIDE RECORDS SUMMARY | 2025-09-15 17:10 | XMS_ITS | Clinical Summary ---
Author Organization [facility] Address [address] [place] [address] Phone Care Team Providers Care Mortgage Loan Computation Clerk Name Role Phone Kassi Bal Uriel Unavailable Dank Nguyen MD Primary Care Provider [phone] Allergies No known active allergies Medications citalopram [...] 3:20 PM EDT): Patient was admitted to [facility] in 2018 and he required a consent in January 2022, presentation most consistent with cyclic vomiting syndrome, patient was without a primary care physician at his last hospitalization he tells me he has one now in [place], he was asked to obtain a gastric emptying study but I do not believe that this happened -IV fluid resuscitation -IV Ativan -Zofran -Clear liquid diet -KUB pending -Consult GI if felt to be necessary -hot Showers Vomiting with nausea, not intractable 02/01/2022 Assessment & Plan (02/03/2022 8:30 AM EDT): Patient admitted to [facility] in 2018 with very similar clinical picture [...] to touch base with Kassi Bal, collab healthcare analyst. Pt works for most of the day [...] In addition to the medication, our collaborative respiratory care faculty will be reaching out to you. She [...] doing any non-medication therapy or taking any rpzg-yry-jkbflwb medication to treat your anxiety or depression? No Are you currently speaking with a mental health specialist (ex. psychologist, therapist, social welfare research worker)? No Since your last visit have you been: Seen in the ER or hospital ? Please explain where and when: Start vomiting and nausea Do you have any other questions for your doctor you want to ask BEFORE your next visit? No Daytime phone number [phone] Assessment & Plan (12/15/2017 11:51 AM EST): [...] doing any non-medication therapy or taking any mwnw-eja-galsswo medication to treat your anxiety or depression? No Are you currently speaking with a mental health specialist (ex. psychologist, therapist, social welfare research worker)? No Since your last visit have you been: Seen in the ER or hospital ? Please explain where and when: ER Do you have any other questions for your doctor you want to ask BEFORE your next visit? No Daytime phone number [phone] Assessment & Plan (11/05/2017 10:09 AM EST): [...] January 25, 2018; however, he did not pick up worker the new prescription. Continue tadalafil 10 mg [...] been able to follow up with a chief operator synthesis for multiple freckles. Ambulatory referral to [facility] Dermatology provided for a skin check; significance explained. Assessment & Plan (01/26/2018 9:29 AM EST): Has multiple freckles all over his body. Recommended to visit chief operator synthesis for further evaluation and management, contact number provided. Assessment & Plan (11/05/2017 5:15 AM EST): Has multiples freckles all over the body. Denies history of skin cancer in family. Ambulatory referral to [facility] Dermatology provided. Assessment & Plan (05/06/2017 7:40 [...] prevention of skin cancer. Recommended to visit chief operator synthesis for further treatment and evaluation; referral provided to [facility] Dermatology. Health care maintenance 05/05/2017 Assessment & [...] Wears contact lenses. States he visited an woodyard crane operator in the past for diabetic eye examination. [...] complications of smoking. Ambulatory referral provided to [facility] ( Smoking, Tobacco Cessation). [...] units nightly while he was at the [facility]. Has not followed up with purchasing manager, Dr. Mert Dickson, since February 2018. Had [...] current management. Refills provided. Ambulatory referral to [facility] Den Diabetic Retinopathy and [facility] Orthopaedics provided for diabetic eye and foot exam respectively. Advised to call and set up an appointment with [facility] Diabetes [facility]; contact details provided. Assessment & Plan (01/03/2019 3:55 PM EST): Called to discuss upcoming group visit program; no answer Assessment & Plan (09/11/2018 9:50 AM EDT): Takes insulin glargine 30 units nightly, and uses insulin aspart for sliding scale. Follows up with [facility], last saw purchasing manager, Dr. Dickson, in February 2018. States he was homeless for about two months, lived in group home, and was not eating properly. He was [...] call and set up an appointment with [facility]. Follow up with me in three months. Assessment & Plan (03/25/2018 7:31 PM EDT): On insulin aspart U-100 and insulin glargine. Follows up with [facility]. Blood work obtained on May [...] diabetic retinopathy for which he visited an woodyard crane operator. Continue current management, refills provided at request. [...] Has scheduled follow up appointment with the [facility] endocrine dept on 11/09. He has never consulted with white metal caster. Reviewed and discussed previous HbA1c. Continue current management. Encouraged and appreciated continuous blood glucose monitoring. Advised to follow up with purchasing manager on scheduled date. Ambulatory referral to [facility] Podiatry for DM foot care provided; relevance reviewed. Assessment & Plan (08/12/2017 12:17 PM EDT): On Insulin Aspart (NovoLog) sliding scale with meals (typically 10-15 U based on carbs) and Insulin Glargine (Lantus, Basaglar) 30 units at night. HbA1c obtained on May 09, 2017, was 12.7% whereas on July 20, 2017, was 11.3%. Mentions he visited purchasing manager, Dr. Dickson on July 20, 2017. During this visit the Insulin Glargine dosage was decreased from 40 units to 30 units. He was advised dietary modification that included restriction of carbohydrates and advised to maintain physical activity. Follows up with automotive specialty technician, Kirsten Faith with significant benefits and is due for a follow up this evening. Reports his morning blood glucose levels on home monitor are in range of 128 to 130 mg/dL. His weight was 151 lbs in May 2017 and is 175 lbs on today's visit. Continue current management. Refills provided. Continue follow up with the automotive specialty technician and purchasing manager. Discussed about complications of diabetes. Follow up [...] to his job, amenable for consultation with non destructive evaluation specialist. Obtain GAD65 antibody, C-peptide for evaluation of diabetes type. Obtain microalbumin/creatinine ratio, random urine and HbA1c level. Renewed prescription for Lantus insulin and NovoLog insulin for 90 days with 3 refills. . Ambulatory referral provided to [facility] Diabetes [facility]; inform me if does not receive call for scheduling an appointment. Ambulatory referral provided to [facility] Nutrition Services for more targeted recommendation on [...] with uncontrolled diabetes. Update me on [facility] [place] about recommendations from automotive specialty technician and ear nose and throat specialist. Resolved Problems Problem Noted Date Diagnosed Date Resolved Date Homeless 09/09/2018 02/17/2019 Assessment & Plan (09/11/2018 9:53 AM EDT): He was homeless for two months, was living in a group home, and now has been living in a [...] new apt. Ambulatory referral to [facility] provided for housing and financial assistance. Diarrhea [...] referral for it. Ambulatory referral provided to [facility] Physical Therapy. Assessment & Plan (01/26/2018 9:27 [...] any other underlying cause. Ambulatory referral to [facility] Physical Therapy provided for further evaluation and management. Follow up with me in 6 months or sooner if needed. Intractable cyclical vomiting with nausea 01/25/2018 02/17/2019 Assessment & Plan (01/26/2018 9:30 AM EST): Mentions he was admitted in the ED at the [facility] on December 22, 2017 for cyclical vomiting [...] HEMOGLOBIN A1C 9.6(H) 4.3 - 5.8 % [facility] Blood 07/07/2022 4:28 AM EDT 07/07/2022 4:48 AM EDT Saad Nye MD LAB BLOOD ORDERABLES Final Result [facility] [address] [place] [address] * (ABNORMAL) Lipid panel (02/17/2019 7:22 PM EDT) HDL 71 35 - 100 mg/dL [facility] CHOLESTEROL 146 <200 mg/dL [facility] TRIGLYCERIDES 35(L) 40 - 150 mg/dL [facility] LDL 68 50 - 129 mg/dL [facility] CARDIAC RISK RATIO 2.1 0.0 - 5.0 [facility] NON-HDL CHOLESTEROL 75 mg/dL [facility] Comment:NCEP ATP III guideli bianka suggest a non-HDL cholesterol goal 30 mg/dl higher than the patient-specific LDL goal. 02/17/2019 7:22 PM EDT 02/17/2019 7:34 PM EDT us Americo Garcia MD LAB BLOOD ORDERABLES Final Resu lt Performing Organization Address [facility]/ZIP Co de Phone Number [address] [address] * (ABNORMAL) Microalbumin/creatinine ratio, random urine (09/09/2018 5:53 PM EDT) URINE MICROALBUMIN 2.5(H) 0.0 - 2.0 mg/dL [facility] URINE CREATININE 307 mg/dL [facility] MICROALB/CRE RATIO 8.1 <30.0 mg/g Cre [facility] Urine 09/09/2018 5:53 PM EDT 09/09/2018 6:16 PM EDT us Americo Garcia MD URINE ORDERABLES Final Result [facility] [address] [place] [address] from Last 3 Months or Most Recently Relevant to Health Maintenance Insurance [place] [employer] [facility] E[place] [employer] O POS EPO [facility] [place] [facility] POS [place] [employer] [place]PO Advance Directives For more information, please contact: [phone] (9AM - 5PM [facility], Thursday-Thursday) * Full Code (Latest Code [...] 11:55 PM 03/09/2018 5:42 PM Care Teams Mortgage Loan Computation Clerk Relationship Specialty Start Date End Date Dank Nguyen MD [address] [place] [id number] PCP - General Internal Medicine 07/07/22 Kassi Bal [address] [place] [phone] [email or web address] Health Insurance Assessor 01/20/18 Additional Source Comments The information contained in this document represents components of the legal health record. It is not the complete legal health record.[facility]
--- OUTSIDE RECORDS SUMMARY | 2025-09-15 17:10 | XMS_ITS | Clinical Summary ---
Author Organization [facility] Address [address] [place] [address] Care Team Providers Care Library Serials Assistant Name Role Phone Unavailable Primary Care Provider [...] patient's age to complete this topic Insurance [facility]
--- OUTSIDE RECORDS SUMMARY | 2025-09-15 17:10 | XMS_ITS | Encounter Summary ---
Author Organization [facility] Address [address] [place] [address] Phone Care Team Providers Care Project Geologist Name Role Phone Kassi Bal Unavailable Pcp, Unknown Primary Care Provider Dank Potter MD Primary Care Provider [phone] Encounter Details Date Type Department Care Team (Late st Contact Info) Description 02/01/2022 Procedure Pass [facility], Ct Scan - [facility] [address] [place] [address] Social History Tobacco Use Types Packs/Day Years [...] 5:46 AM EST Olga Brown RN * [place] Suicide Severity Rating Scale (Screener/Recent Self-Report) Question [...] documented as of this encounter Care Teams Project Geologist Relationship Specialty Start Date End Date Pcp, Unknown PCP - General 02/01/22 07/06/22 Dank Nguyen MD [address] [place] [address] PCP - General Internal Medicine 07/07/22 Kassi Bal [address] [place] [phone] [email or web address] Collaborative Care Pony Worker 01/20/18 documented as of this encounter Additional Source Comments The information contained in this document represents components of the legal health record. It is not the complete legal health record.[facility]
--- OUTSIDE RECORDS SUMMARY | 2025-09-15 17:10 | XMS_ITS | Encounter Summary ---
Author Organization [facility] Address [address] [place] [address] Phone Care Team Providers Care Accounting Tutor Name Role Phone Americo Garcia MD Primary Care Provider [phone] Americo Garcai MD Unavailable [phone] Kassi Bal Unavailable Pcp, Unknown Primary Care Provider Unavailabl e Dank Nguyen MD Primary Care Provider [phone] Encounter Details Date Type Department Care Team (Late st Contact Info) Description 08/19/2017 Telephone [facility] Den Adult Medicine [address] [place] [address] Americo Garcia MD [address] [place] [address] [email or web address] Social History Tobacco Use Types Packs/Day Years [...] on filedocumented in this encounter Care Teams Accounting Tutor Relationship Specialty Start Date End Date Americo Garcia MD [address] [place] [address] [email or web address] PCP - General Internal Medicine 05/05/17 12/15/21 Pcp, Unknown PCP - General 02/01/22 07/06/22 Dank Nguyen MD [address] [place] [address] [address] [place] [address] PCP - General Internal Medicine 07/07/22 Americo Garcia MD [address] [place] [address] [address] [place] [place] [address] [email or web address] Partners Attributed Provider 05/24/17 03/02/21 Kassi Bal [address] [place] [address] [place] [phone] [email or web address] [facility] Engineering Supplies Sales 01/20/18 documented as of this encounter Additional Source Comments The information contained in this document represents components of the legal health record. It is not the complete legal health record.[facility]
--- OUTSIDE RECORDS SUMMARY | 2025-09-15 17:11 | XMS_ITS | Clinical Summary ---
Author Organization [facility] Address [address] [place] [address] Phone Care Team Providers Care Die Engraving Supervisor Name Role Phone Dank Nguyen MD Primary Care Provider [phone] Allergies Active Allergy Reactions Criticality Noted Date Comments Metformin Diarrhea 09/02/2024 Medications blood sugar diagnostic (FreeStyle Lite Strips) test strip To check FSG 3 times daily Active irbesartan (AVAPRO) 150 mg tablet Take 1 Tablet by mouth daily for 360 days. Active metoprolol succinate (Kapspargo Sprinkle) 100 mg capsule,sprinkle, ER 24hr Take 1 Capsule by mouth daily. Active amLODIPine (NORVASC) 10 mg tablet Take 1 Tablet by mouth daily. Active busPIRone (BUSPAR) 5 mg tablet Take 1 Tablet by mouth 3 times daily as needed (anxiety) for up to 360 days. Active tadalafiL (CIALIS) 20 mg tablet TAKE 1 TABLET BY MOUTH NEEDED FOR ERECTILE DYSFUNCTION. 30 MINUTES PRIOR TO SEXUAL ACTIVITY Active ferrous sulfate 325 mg (65 mg iron) EC tablet Active aluminum-magnesiu m hydroxide-simethi cone (MAALOX) 200-200-20 mg/5 mL suspension Take 15 mL by mouth 4 times daily as needed (gastric ulcers). Active levalbuterol (XOPENEX HFA) 45 mcg/actuation inhaler Inhale 1-2 Puffs into the lungs every 4 hours as needed for Wheezing. 024 Active albuterol HFA (PROAIR HFA ; PROVENTIL HFA ; VENTOLIN HFA) 90 mcg/actuation inhaler Inhale 2 Puffs into the lungs every 4 hours as needed for Cough or Wheezing. 024 Active FREESTYLE LANCETS MISC To check FSG 3 times daily Active blood-glucose sensor (FREESTYLE ODALYS 3 SENSOR MISC) 1 Device by Does not apply route every 14 days. 023 Active alcohol swabs (Alcohol Prep Pads) pads, medicated USE DIRECTED FOUR TIMES A DAY PRIOR TO INSULIN INJECTION Active pen needle, diabetic 31 gauge x 5/16 needle TO INJECT INSULIN 4 TIMES A DAY Active insulin aspart (NovoLOG Flexpen U-100 Insulin) 100 unit/mL (3 mL) injection pen INJECT SUBCUTANEOUSLY THREE TIMES A DAY. USE PER SLIDING SCALE. <100: 0 units, 101-150: 6 units, 151-200: 8 units, 201-250: 10 units, 251-300: 12 units, 301-350: 14 units, 351-400: 16 units, >400: call me Active blood-glucose meter kit Use to check blood sugars three times per day Active magnesium 200 mg tablet TAKE 1 TABLET BY MOUTH EVERYDAY AT BEDTIME 30 tablet 3 Active Lantus Solostar U-100 Insulin 100 unit/mL (3 mL) injection pen INJECT 40-44 UNITS UNDER THE SKIN AT BEDTIME. 45 mL 1 025 Active topiramate (TOPAMAX) 50 mg tablet Take 1 tablet (50 mg total) by mouth 1 (one) time each day. 024 Active ondansetron ODT (ZOFRAN-ODT) 4 mg disintegrating tablet Take 1 tablet (4 mg total) by mouth every 8 (eight) hours if needed. for nausea and vomiting 024 Active albuterol HFA (PROAIR HFA ; PROVENTIL HFA ; VENTOLIN HFA) 90 mcg/actuation inhalerIndication s:SOB (shortness of breath) Inhale 2 puffs by mouth every 6 (six) hours if needed for wheezing or shortness of breath. 1 each 025 2025 Active fluticasone furoate-vilantero L (Breo Ellipta) 100-25 mcg/dose inhaler Inhale 1 puff by mouth 1 (one) time each day. 3 each 3 Active albuterol HFA (Ventolin HFA) 90 mcg/actuation inhalerIndication s:COPD with asthma ([facility] V24, [facility] V28) Inhale 2 puffs by mouth every 6 (six) hours if needed for wheezing. 3 each 025 2025 Active ergocalciferol (VITAMIN D-2) 1,250 mcg (50,000 unit) capsule Take 1 capsule (50,000 Units total) by mouth 1 (one) time per week. 4 each 025 2025 Active rizatriptan (MAXALT) 10 mg tablet TAKE 1 TABLET (10 MG TOTAL) BY MOUTH 1 (ONE) TIME IF NEEDED FOR MIGRAINE (MAY REPEAT X1). MAY REPEAT IN 2 HOURS IF UNRESOLVED. DO NOT EXCEED 30 MG IN 24 HOURS. 6 tablet 1 025 2025 Active esomeprazole (NexIUM) [address] capsule Take 1 capsule (40 mg total) by mouth 2 (two) times a day before meals. Do not open capsule. 180 each 025 2024 Active galcanezumab-gnlm (EMGALITY) 120 mg/mL injection penIndications:Ch ronic migraine with aura without status migrainosus, not intractable Inject 1 mL (120 mg total) under the skin every 28 (twenty-eight) days. 3 each Active metoclopramide (REGLAN) 5 mg tablet TAKE 1 TABLET BY MOUTH 4 TIMES A DAY. 240 tablet Active metoclopramide (REGLAN) 5 mg tablet Take 1 tablet (5 mg total) by mouth 4 (four) times a day. 240 each 025 2024 Discontinued Active Problems Problem Noted Date Diagnosed Date Iron deficiency anemia due to chronic blood loss 06/26/2025 Chronic kidney disease, stage 3a ([facility] V24, [facility] V28) 08/24/2024 Tachycardia 05/27/2024 Esophageal reflux 06/17/2022 Tendonitis of knee, right 04/29/2021 Right knee pain 04/29/2021 Osteoarthritis of right knee 04/29/2021 Major depressive disorder in partial remission ([facility] V24) 03/21/2021 DM (diabetes mellitus), type 2 with peripheral vascular complications ([facility] V24, [facility] V28) 08/30/2020 COVID-19 virus infection 08/24/2020 Insomnia 04/19/2020 Elevated alkaline phosphatase level 02/22/2020 Overview (09/02/2024): Elevated GGTP 08/2020, rec RUQ u/s Migraine with aura and witho ut status migrainosus, not intractable 02/17/2020 Erectile dysfunction 02/17/2020 Urolithiasis 01/03/2011 Overview (09/02/2024): [place] HTN (hypertension) 10/11/2009 Encounters Date Type Department Care Team Description 08/10/2025 Telephone Gastroenterology [facility] [address] [phone] Karina Johnson MD 08/02/2025 11:00 AM EDT Office Visit Internal Medicine [address] [phone] Dank Nguyen MD Type 2 diabetes mellitus without complication, with long-term current use of insulin ([facility] V24, [facility] V28) (Primary Dx); Primary hypertension; Hypercholesterolemi a; Stage 2 chronic kidney disease 08/02/2025 Telephone Internal Medicine [address] [phone] Cassidy Kinney MA 07/19/2025 9:40 AM EDT Office Visit Gastroenterology [facility] 175 [facility] [address] [phone] Veronica Tobin NP Nausea and vomiting in adult patient (Primary Dx); Esophagitis, [place] grade D; Marijuana use; Elevated alkaline phosphatase level; History of gastric ulcer; Iron deficiency anemia, unspecified iron deficiency anemia type 07/19/2025 Telephone Gastroenterology - [place] 175 [facility] 175 [facility] [address] [place] [phone] Veronica Tobin NP 07/12/2025 1:00 PM EDT - 07/12/2025 11:59 PM EDT Hospital Encounter [facility] [address] [phone] John Conley MD Iron deficiency anemia due to chronic blood loss (Primary Dx) Discharge Disposition: Home or Self Care 07/07/2025 10:04 AM EDT - 07/07/2025 11:59 PM EDT Hospital Encounter [facility] [address] [phone] John Conley MD Iron deficiency anemia due to chronic blood loss (Primary Dx) Discharge Disposition: Home or Self Care 07/07/2025 9:00 AM EDT Office Visit [facility] [place] [facility] [place] 175 [facility] [address] [place] [phone] Mary Jo Oneil PA Chronic migraine with aura without status migrainosus, not intractable (Primary Dx) 06/20/2025 9:45 AM EDT Office Visit [facility] Hematology Oncology [address] [place] [phone] Tomer Allan MD Iron deficiency anemia due to chronic blood loss (Primary Dx) from Last 3 Months Immunizations Immunization Administration Dates Next Due Influenza trivalent, 0.5mL, preservative free (Fluarix; FluLaval; Fluzone) ages 6mo and older (Afluria) 3 years and older 09/14/2012,10/11/2010 Pneumococcal polysaccharide 23 valent (Pneumovax 23) 2yo and older 03/21/2021 Td Tetanus diptheria (Tdvax) 7yo and older 11/23 Surgical History Surgery Date Site/Laterality Comments UPPER GASTROINTESTINAL ENDOSCOPY 10/10/2020 PROCEDURE: GA UPPER GI ENDOSCOPY PERFORMED; COMMENT: LA grade C reflux esophagitis on current treatment with pantoprazole, pathology: Reflux, no virus infection. Medical History Medical History Date Comments Urolithiasis 01/03/2011 DX:Urolithiasis Esophageal reflux DX:Esophageal reflux Cervical spondylosis without myelopathy DX:Cervical spondylosis with out myelopathy Depressive disorder DX:Depressiv e disorder Diabetes mellitus type 2, co ntrolled, with complications ([facility] V24, [facility] V28) DX:Diabetes mellitus type 2, controlled, with complications ([facility]) Essential hypertension DX:Essent ial hypertension Stage 3 acute kidney injury ([facility] V24) DX:Stage 3 acute kidney inju ry ([facility]) Family History Medical History Relation Name Comments [...] Description 09/20/2025 9:45 AM EDT Office Visit [facility] Hematology Oncology [address] [place] [phone] Tomer Allan MD [address] [place] [phone] 09/21/2025 8:00 AM EDT Appointment [facility] Nuclear Medicine [address] [place] [phone] 10/13/2025 10:00 AM EST Appointment [facility] Endoscopy [address] [place] [phone] Felipe Koch DO [address] [address] 11/21/2025 9:45 AM EST Office Visit Pulmonology - [place] [address] [phone] Marlene Jiménez MD [address] [address] 11/22/2025 1:00 PM EST Office Visit [facility] [place] [facility] [place] 175 [facility] 150 [place] [phone] Nazia Doherty MD 175 [place] [address] 12/01/2025 9:50 AM EST Office Visit [facility] [address] [place] [phone] Saad Scott MD [address] [place] [address] Dr [address] [place] [address] 02/01/2026 10:30 AM EDT Office Visit Internal Medicine - [place] 175 [facility] 200 [place] [phone] Keith Fernandez NP 175 [facility] [address] [place] [address] Health Maintenance Due Date Last Done Comments [...] on patient's age to complete this topic Goals Goal Patient Goal Type Associated Problems Recent Progress Patient-Stated? Author Autogenera juancho Goal Care Plan Autogenerated Problem No Helen Varma Procedures Procedure Name Priority Date/Time Associated Diagnosis Comments CBC WITH AUTO DIFFERENTIAL Routine 09/15/2025 1:30 PM EDT Iron deficiency anemia due to chronic blood loss CBC AND DIFFERENTIAL Routine 09/15/2025 1:30 PM EDT Iron deficiency anemia due to chronic blood loss FERRITIN Routine 09/15/2025 1:30 PM EDT Iron deficiency anemia due to chronic blood loss IRON AND TIBC Routine 09/15/2025 1:30 PM EDT Iron deficiency anemia due to chronic blood loss COMPREHENSIVE METABOLIC PANEL Routine 05/22/2025 11:18 AM EDT Anemia, unspecified type HEMOGLOBIN A1C Routine 03/09/2025 2:19 PM EDT Type 2 diabetes mellitus without complication, with long-term current use of insulin ([facility] V24, [facility] V28) Primary hypertension Hypercholesterolemi a Depression, unspecified depression type LIPID PANEL WITH REFLEX TO DIRECT LDL Routine 03/09/2025 2:19 PM EDT Type 2 diabetes mellitus without complication, with long-term current use of insulin ([facility] V24, [facility] V28) Primary hypertension Hypercholesterolemi a Depression, unspecified depression type HEPATITIS C SCREENING Routine 05/06/2024 HIV SCREENING Routine 05/06/2024 URINE ALBUMIN CREATININE RATIO Routine 05/06/2024 DEPRESSION SCREENING Routine 04/29/2024 from Last 3 Months or Most Recently Relevant to Health Maintenance Results * (ABNORMAL) CBC auto differential (09/15/2025 1:30 PM EDT) [facility] WBC 6.7 4.8 - 10.8 K/mcL LAB HEMETOLOGY METHOD 09/15/2025 2:00 PM [facility] RBC 5.40 4.50 - 5.50 M/mcL LAB HEMETOLOGY METHOD 09/15/2025 2:00 PM [facility] Hemoglobin 13.7 13.5 - 17.5 g/dL LAB HEMETOLOGY METHOD 09/15/2025 2:00 PM [facility] Hematocrit 44.2 42.0 - 54.0 % LAB HEMETOLOGY METHOD 09/15/2025 2:00 PM [facility] MCV 82.3 79.0 - 98.0 FL LAB HEMETOLOGY METHOD 09/15/2025 2:00 PM [facility] MCH 25.5(L) 27.0 - 32.0 pcg LAB HEMETOLOGY METHOD 09/15/2025 2:00 PM [facility] MCHC 31.0(L) 32.0 - 37.0 g/dL LAB HEMETOLOGY METHOD 09/15/2025 2:00 PM [facility] RDW 15.1(H) 11.0 - 15.0 % LAB HEMETOLOGY METHOD 09/15/2025 2:00 PM [facility] Platelets 256 130 - 400 K/mcL LAB HEMETOLOGY METHOD 09/15/2025 2:00 PM [facility] MPV 10.6 7.0 - 11.0 FL LAB HEMETOLOGY METHOD 09/15/2025 2:00 PM [facility] NRBC 0.0 <1.0 % LAB HEMETOLOGY METHOD 09/15/2025 2:00 PM [facility] NRBC Absolute 0.00 <0.10 K/mcL LAB HEMETOLOGY METHOD 09/15/2025 2:00 PM [facility] Neutrophils Relative 57.7 % LAB HEMETOLOGY METHOD 09/15/2025 2:00 PM [facility] Lymphocytes Relative 30.0 % LAB HEMETOLOGY METHOD 09/15/2025 2:00 PM [facility] Monocytes Relative 7.5 % LAB HEMETOLOGY METHOD 09/15/2025 2:00 PM [facility] Eosinophils Relative 4.0 % LAB HEMETOLOGY METHOD 09/15/2025 2:00 PM [facility] Basophils Relative 0.7 % LAB HEMETOLOGY METHOD 09/15/2025 2:00 PM [facility] Immature Granulocytes Relative 0.1 % LAB HEMETOLOGY METHOD 09/15/2025 2:00 PM [facility] Neutrophils Absolute 3.87 1.50 - 7.00 K/mcL LAB HEMETOLOGY METHOD 09/15/2025 2:00 PM [facility] Lymphocytes Absolute 2.01 1.00 - 5.00 K/mcL LAB HEMETOLOGY METHOD 09/15/2025 2:00 PM [facility] Monocytes Absolute 0.50 0.20 - 1.00 K/mcL LAB HEMETOLOGY METHOD 09/15/2025 2:00 PM [facility] Eosinophils Absolute 0.27 0.00 - 0.50 K/[facility] LAB HEMETOLOGY METHOD 09/15/2025 2:00 PM EDT [facility] Basophils Absolute 0.05 0.00 - 0.20 K/[facility] LAB HEMETOLOGY METHOD 09/15/2025 2:00 PM EDT [facility] Immature Granulocytes Absolute 0.01 0.00 - 0.03 K/[facility] LAB HEMETOLOGY METHOD 09/15/2025 2:00 PM EDT [facility] Blood Venous blood specimen / Unknown Venipuncture / Unknown 09/15/2025 1:30 PM EDT 09/15/2025 1:30 PM EDT us Tomer Allan MD LAB BLOOD ORDERABLES Final Result Performing Organization Address [facility]/ZIP Co de Phone Number [facility] [address] [place] [address], [place] [phone] * Iron and TIBC (09/15/2025 1:30 PM EDT) Iron 63 50 - 160 mcg/dL LAB CHEMISTRY METHOD 09/15/2025 3:38 PM EDT [facility] TIBC 280 250 - 450 mcg/dL LAB CHEMISTRY METHOD 09/15/2025 3:38 PM EDT [facility] Iron Saturation 23 20 - 50 % LAB CHEMISTRY METHOD 09/15/2025 3:38 PM EDT [facility] Blood Venous blood specimen / Unknown Venipuncture / Unknown 09/15/2025 1:30 PM EDT 09/15/2025 1:30 PM EDT us Tomer Allan MD LAB BLOOD ORDERABLES Final Result Performing Organization Address [facility]/ZIP Co de Phone Number [facility] [address] [place] [address], [place] [phone] * Ferritin (09/15/2025 1:30 PM EDT) Ferritin 79 26 - 388 ng/mL LAB CHEMISTRY METHOD 09/15/2025 3:39 PM EDT [facility] Blood Venous blood specimen / Unknown Venipuncture / Unknown 09/15/2025 1:30 PM EDT 09/15/2025 1:30 PM EDT Tomer Allan MD LAB BLOOD ORDERABLES Final Result [facility] [address] [place] [address], [place] [phone] * (ABNORMAL) Comprehensive metabolic panel (05/22/2025 11:18 AM EDT) Pathologist [facility] Sodium 141 133 - 145 mmol/L LAB CHEMISTRY METHOD 05/22/2025 2:45 PM [facility] Potassium 4.2 3.5 - 5.5 mmol/L LAB CHEMISTRY METHOD 05/22/2025 2:45 PM [facility] Chloride 106 96 - 110 mmol/L LAB CHEMISTRY METHOD 05/22/2025 2:45 PM [facility] CO2 25 21 - 32 mmol/L LAB CHEMISTRY METHOD 05/22/2025 2:45 PM [facility] Anion Gap 10 3 - 11 LAB CHEMISTRY METHOD 05/22/2025 2:45 PM [facility] Glucose 197(H) 70 - 100 mg/dL LAB CHEMISTRY METHOD 05/22/2025 2:45 PM [facility] BUN 17 5 - 25 mg/dL LAB CHEMISTRY METHOD 05/22/2025 2:45 PM [facility] Creatinine 1.47(H) 0.70 - 1.30 mg/dL LAB CHEMISTRY METHOD 05/22/2025 2:45 PM [facility] eGFR 59(L) >=60 mL/min/1. 73m2 LAB CHEMISTRY METHOD 05/22/2025 2:45 PM EDT [facility] Comment:Calculation based on the Chronic Kidney Disease Epidemiology Collaboration (CKD-EPI) equation refit without adjustment for race. BUN/Creatinine Ratio 11.6 LAB CHEMISTRY METHOD 05/22/2025 2:45 PM EDT [facility] Calcium 8.9 8.5 - 10.5 mg/dL LAB CHEMISTRY METHOD 05/22/2025 2:45 PM EDT [facility] AST (SGOT) 9(L) 10 - 42 unit/L LAB CHEMISTRY METHOD 05/22/2025 2:45 PM [facility] ALT (SGPT) 18 10 - 60 unit/L LAB CHEMISTRY METHOD 05/22/2025 2:45 PM [facility] Alkaline Phosphatase 212(H) 42 - 121 unit/L LAB CHEMISTRY METHOD 05/22/2025 2:45 PM EDT [facility] Total Protein 7.4 6.0 - 8.0 g/dL LAB CHEMISTRY METHOD 05/22/2025 2:45 PM EDT [facility] Albumin 3.8 3.2 - 5.0 g/dL LAB CHEMISTRY METHOD 05/22/2025 2:45 PM [facility] Total Bilirubin 1.3 0.0 - 1.4 mg/dL LAB CHEMISTRY METHOD 05/22/2025 2:45 PM EDT [facility] Blood Venous blood specimen / Unknown Venipuncture / Unknown 05/22/2025 11:18 AM EDT 05/22/2025 1:31 PM EDT us Tomer Allan MD LAB BLOOD ORDERABLES Final Result [facility] [address] [place] [address], * (ABNORMAL) Lipid panel with reflex to direct LDL (03/09/2025 2:19 PM EDT) Cholesterol 157 0 - 200 mg/dL LAB CHEMISTRY METHOD 03/09/2025 3:41 PM EDT [facility] Triglycerides 163(H) 0 - 150 mg/dL LAB CHEMISTRY METHOD 03/09/2025 3:41 PM EDT [facility] HDL 70 >=40 mg/dL LAB CHEMISTRY METHOD 03/09/2025 3:41 PM EDT [facility] LDL Calculated 54 0 - 100 mg/dL LAB CHEMISTRY METHOD 03/09/2025 3:41 PM EDT [facility] VLDL Cholesterol August 32.6 mg/dL LAB CHEMISTRY METHOD 03/09/2025 3:41 PM EDT [facility] Non HDL Chol. (LDL+VLDL) 87 <145 mg/dL LAB CHEMISTRY METHOD 03/09/2025 3:41 PM EDT [facility] Chol/HDL Ratio 2.2 0.0 - 4.4 LAB CHEMISTRY METHOD 03/09/2025 3:41 PM EDT [facility] Blood Venous blood specimen / Unknown Venipuncture / Unknown 03/09/2025 2:19 PM EDT 03/09/2025 2:37 PM EDT us Dank Nguyen MD LAB BLOOD ORDERABLES Final Resul t [facility] [address] [place] [address], * (ABNORMAL) Hemoglobin A1c (03/09/2025 2:19 PM EDT) Hemoglobin A1C 12.5(H) <6.5 % LAB CHEMISTRY METHOD 03/09/2025 9:35 PM EDT [facility] Mean Bld Glu Estim. 312 mg/dL LAB CHEMISTRY METHOD 03/09/2025 9:35 PM EDT [facility] Blood Venous blood specimen / Unknown Venipuncture / Unknown 03/09/2025 2:19 PM EDT 03/09/2025 2:40 PM EDT Dank Nguyen MD LAB BLOOD ORDERABLES Final Resul t [facility] ([facility]) [facility] [address] [place] [address], [place] [phone] * Urine Albumin Creatinine Ratio (05/06/2024) Pathologist [facility] Urine Albumin Creatinine Ratio Abstracted Historical Provider HEALTH MAINTENANCE Final Result * HIV Screening (05/06/2024) [facility] HIV Screening Abstracted Historical Provider HEALTH MAINTENANCE Final Result * Hepatitis C Screening (05/06/2024) [facility] Hepatitis C Screening Abstracted Historical Provider HEALTH MAINTENANCE Final Result * Depression Screening (04/29/2024) Pathologist [facility] Depression Screening Abstracted Historical Provider HEALTH MAINTENANCE Final Result from Last 3 Months or Most Recently Relevant to Health Maintenance Additional Health Concerns Active Problems Noted Date Diagnosed Date Autogenerated Problem 09/14/2025 Insurance [facility] [place] [address] Care Teams Die Engraving Supervisor Relationship Specialty Start Date End Date Dank Nguyen MD [address] [address] PCP - General Internal Medicine 04/23/21
== END 2025-09-15 16:03 | disposition home or self-care (01) ==
LOC: HO.US 16:02
PROVIDERS: Visit Provider Internal Medicine Nephrology
DX: I12.9 Hypertensive chronic kidney disease with stage 1 through stage 4 chronic kidney disease, or unspecified chronic kidney disease (principal); E11.22 Type 2 diabetes mellitus with diabetic chronic kidney disease; N18.30 Chronic kidney disease, stage 3 unspecified
CPT/HCPCS: 76775; 82575

== ENCOUNTER → 2025-09-15 16:07 | Outpatient (BNV) | payer OTHER, SELFPAY | PROVIDERS: Visit Provider Radiology Diagnostic Radiology | DX: E11.22 Type 2 diabetes mellitus with diabetic chronic kidney disease (principal) | CPT/HCPCS: 76775 ==

== ENCOUNTER 2025-09-19 09:59 | Outpatient (REF) | payer OTHER, SELFPAY ==
[2025-09-19 13:30] LABS: MANUAL DIFF FLAG NO
[2025-09-19 13:35] LABS: Hematocrit 42.2 % (42.0-52.0); Hemoglobin 13.1 g/dl (14.0-18.0); Imm Gran Abs Auto 0.01 X10*3/uL (0.00-0.03); Imm Gran Pct Auto 0.1 % (0.0-0.4); Lymphocytes Absolute Auto 2.1 X10*3/uL (1.2-4.9); Mean Corpuscular HGB Conc 31.0 g/dl (31.0-36.0); Mean Corpuscular Hemoglobin 25.3 pg (27.0-33.0); Mean Corpuscular Volume 81.6 fL (80.0-98.0); NRBC Abs Auto 0.000 X10*3/uL (0.0-0.012); NRBC Pct Auto 0.0 /100WBC (0.0-0.2); Platelet Count 255 X10*3/uL (160-400); Red Blood Count 5.17 X10*6/uL (4.60-5.80); White Blood Count 8.0 X10*3/uL (4.8-10.8)
[2025-09-19 13:39] LABS: INTERNATIONAL NORM RATIO 0.9 (0.9-1.1); Prothrombin Time 10.0 SEC (10.9-12.4)
[2025-09-19 13:52] LABS: Anion Gap 15 (12-20); Blood Urea Nitrogen 20 mg/dL (9-16); Calcium 9.5 mg/dL (8.4-10.2); Carbon Dioxide 24 mmol/L (22-29); Chloride 109 mmol/L (96-108); Estimated Glomerular Filt Rate > 60; Potassium 3.9 mmol/L (3.3-5.1); Sodium 144 mmol/L (135-145)
[2025-09-19 14:06] LABS: Protein/Creatinine Ratio, Ur 0.59 (<0.2); Total Protein Urine Random 153 mg/dL (<12)
[2025-09-21 16:39] LABS: Anti Glomerular Basement Memb <1.0 AI; Proteinase 3 PR3 Antibodies <1.0 AI
[2025-09-24 02:00] LABS: Phospholipase A2 IgG ELISA <4 RU/mL; Phospholipase A2 IgG IFA NEGATIVE (NEGATIVE)
== END 2025-09-19 10:00 | disposition home or self-care (01) ==
LOC: HO.HKASLDS 09:59
PROVIDERS: PCP Internal Medicine; Visit Provider Internal Medicine Nephrology
DX: I12.9 Hypertensive chronic kidney disease with stage 1 through stage 4 chronic kidney disease, or unspecified chronic kidney disease (principal); N18.30 Chronic kidney disease, stage 3 unspecified; E11.22 Type 2 diabetes mellitus with diabetic chronic kidney disease; Z01.84 Encounter for antibody response examination
CPT/HCPCS: 80051; 82310; 82565; 82570; 83520; 84100; 84156; 84520; 85025; 85610; 86021; 86160; 86225; 86255; 86335; 99212

== ENCOUNTER 2025-09-19 09:59 | Outpatient (AMB) | payer OTHER, SELFPAY ==
--- NOTE | 2025-09-19 10:04 | HO.NEPHOV_ITS ---
Vital Signs 09/19/25 10:07 Height 5 ft 8 in Weight 156 lb 4 oz BMI 23.8 BP 134/90 H Blood Pressure Location Lt brachial Position Sitting Intake Visit Reasons: 1mnth fu-Conf Contemporary Or Modern Dancer Required: No Accompanied by: Self / Same As Patient Allergies metformin Allergy (Verified 09/19/25 10:07) Diarrhea HPI Comments Details: I had the pleasure of seeing Darren in follow up for CKD and hypertension. He has a long H/O uncontrolled DM. He is on insulin. He is on ARB as well as Amlodipine for hypertension. He is not on GLP1 or SGLT2 i. He has H/O retinopathy needing laser treatment for his right eye. He denied CAD, Carotid stenosis, CVA, CHF or PAD. He denies smoking but smokes marijuana. He has H/O difficulty swallowing, gastric emptying but had intermittent bouts of vomiting. He tries to avoid NSAID's as much as he can. He is not sure whether he has proteinuria. His last serum creatinine was 1.47 PFS Medical History (Updated 08/22/25 @ 21:17 by Sony Hawk MD) Urolithiasis Tendonitis of knee, right Tachycardia Right knee pain Osteoarthritis of right knee Migraine with aura and without status migrainosus, not intractable Major depressive disorder in partial remission Iron deficiency anemia due to chronic blood loss Insomnia Hypertension H/O esophageal reflux Erectile dysfunction Elevated alkaline phosphatase level DM (diabetes mellitus), type 2 with peripheral vascular complications COVID-19 virus infection Surgical History History of endoscopy Family History Mother Cancer Maternal Grandfather Diabetes mellitus Social History (Updated 08/22/25 @ 11:20 by Dahlia Mcmillan MA) Alcohol intake: never Patient Tobacco Use Status: Never used Tobacco Substance Use Type: Marijuana Review of Systems Const All systems reviewed & are unremarkable except as noted in HPI and below Physical Exam Const General: comfortable and no acute distress Orientation/consciousness: patient oriented x3 HEENT Head: Yes normocephalic Mouth: Normal oral and palatal mucosa present Eyes EOM: EOMs intact bilaterally Neck Neck: Yes supple Resp Auscultation: clear to auscultation bilaterally Cardio Jugular venous distension: no JVD Rate: regular rate GI Palpation (GI): Soft to palpation Auscultation: normal bowel sounds General: Yes no CVA tenderness Back/Spine/Pelvis Back: no CVA tenderness Skin General skin exam: no rashes or lesions noted Neuro General: patient oriented x3 and moves all extremities Extrem General: Yes no pedal edema Results Reviewed Nephrology Results: Renal US 09/15/25 Assessment & Plan Assessment & Plan (1) CKD stage 3 due to type 2 diabetes mellitus: Code(s): E11.22 - Type 2 diabetes mellitus with diabetic chronic kidney disease; N18.30 - Chronic kidney disease, stage 3 unspecified Category: Medical (2) Hypertension: Code(s): I10 - Essential (primary) hypertension Category: Medical Qualifiers: Hypertension type: primary hypertension Qualified Code(s): I10 - Essential (primary) hypertension Plan Darren has CKD likely from diabetic renal disease. He is on ARB but not on GLP1 agonist or SGLT2 i. He needs to maintain good hydration and avoid NSAID's. I ordered W/U including renal imaging as well as creatinine clearance. He may need a renal biopsy. I initiated him on Jardiance 10 mg daily . F/U labs ordered as well. Answered all questions and F/U was given Orders: Orders Creatinine 1 Month E11.22 - Type 2 diabetes mellitus with diabetic chronic kidney disease, I10 - Essential (primary) hypertension, N18.30 - Chronic kidney disease, stage 3 unspecified Electrolytes 1 Month E11.22 - Type 2 diabetes mellitus with diabetic chronic kidney disease, I10 - Essential (primary) hypertension, N18.30 - Chronic kidney disease, stage 3 unspecified Blood Urea Nitrogen 1 Month E11.22 - Type 2 diabetes mellitus with diabetic chronic kidney disease, I10 - Essential (primary) hypertension, N18.30 - Chronic kidney disease, stage 3 unspecified Medications: New empagliflozin (Jardiance) 10 mg PO DAILY 30 tabs 4RF Coding Level of Care Code Est Pt Level 4 (32966) Diagnoses CKD stage 3 due to type 2 diabetes mellitus E11.22; N18.30 Primary hypertension I10 Hypertension type: primary hypertension
[2025-09-19 10:07] VITALS: BP 134/90; BMI 23.8
--- OUTSIDE RECORDS SUMMARY | 2025-09-19 11:51 | XMS_ITS | Encounter Summary ---
Author Organization [facility] Address [address] [place] [address] Phone Care Team Providers Care X Ray Technician Name Role Phone Americo Garcia MD Primary Care Provider [phone] Americo Garcia MD Unavailable [phone] Kassi Bal Unavailable Pcp, Unknown Primary Care Provider Unavailabl e Dank Nguyen MD Primary Care Provider [phone] Encounter Details Date Type Department Care Team (Late st Contact Info) Description 08/19/2017 Telephone [facility] Den Adult Medicine [address] [place] [address] Americo Garcia MD [address] [place] [address] [email or web address] Social History Tobacco Use Types Packs/Day Years [...] on filedocumented in this encounter Care Teams X Ray Technician Relationship Specialty Start Date End Date Americo Garcia MD [address] [place] [address] [email or web address] PCP - General Internal Medicine 05/05/17 12/15/21 Pcp, Unknown PCP - General 02/01/22 07/06/22 Dank Nguyen MD [address] [place] [address] [address] [place] [address] PCP - General Internal Medicine 07/07/22 Americo Garcia MD [address] [place] [address] [address] [place] [address] [email or web address] Partners Attributed Provider 05/24/17 03/02/21 Kassi Bal [address] [place] [address] [place] [phone] [email or web address] [facility] Mushroom Packer 01/20/18 documented as of this encounter Additional Source Comments The information contained in this document represents components of the legal health record. It is not the complete legal health record.[facility]
--- OUTSIDE RECORDS SUMMARY | 2025-09-19 11:51 | XMS_ITS | Clinical Summary ---
Author Organization [facility] Address [address] [place] [address] Care Team Providers Care Route Sales Person Name Role Phone Unavailable Primary Care Provider [...] patient's age to complete this topic Insurance [facility]
--- OUTSIDE RECORDS SUMMARY | 2025-09-19 11:51 | XMS_ITS | Clinical Summary ---
Author Organization [facility] Address [address] [place] [address] Care Team Providers Care Artist'S Manager Name Role Phone Dank Nguyen MD Primary [...] age to complete this topic Care Teams Artist'S Manager Relationship Specialty Start Date End Date Dank Nguyen MD PCP - General Internal Medicine 05/13/23
--- OUTSIDE RECORDS SUMMARY | 2025-09-19 11:51 | XMS_ITS | Clinical Summary ---
Author Organization [facility] Address [address] [facility] [address] [place] [address] Phone Care Team Providers Care Medical Unit Secretary Name Role Phone Rebecca Parker Primary Care Provider [phone] Allergies Active Allergy Reactions Criticality Noted Date [...] been able to follow up with a drop tester for multiple freckles. Ambulatory referral to [facility] Dermatology provided for a skin check; significance [...] Visit [facility] [address] [facility] [address] [place] [address] Fabian Haider MD [address] [facility] [address] [place] [address] Health Maintenance Due Date Last [...] Hemoglobin A1C 8.3(H) 4.8 - 5.9 % [email or web address] 03/08/2024 03/09/2024 8:3 4 AM EDT Narrative [facility] - 03/09/2024 Unless otherwise specified, test(s) performed at: [facility], [address] [place], [place] [id number] SAP PORTAL DEVELOPER: Joe Guerrero M.D. For any questions, please call customer service at FREQUENCY:MONTHLY Resulting Agency Comment Specimen source: Blood us Micha Jiménez MD LAB BLOOD BANK TEST ORDERABLES F inal Result [facility] See order comments or contact performing lab Unknown, [place] from Last 3 Months or Most Recently Relevant to Health Maintenance Insurance [address] [place] [address] [employer] Commercial Medicaid [place] [facility] Medicaid Care Teams Medical Unit Secretary Relationship Specialty Start Date End Date Rebecca Parker [address] [place] [address] PCP - General Nurse Practitioner 08/10/24
--- OUTSIDE RECORDS SUMMARY | 2025-09-19 11:51 | XMS_ITS | Encounter Summary ---
Author Organization [facility] Address [address] [place] [address] Phone Care Team Providers Care Japanese Professor Name Role Phone Kassi Bal Unavailable Pcp, Unknown Primary Care Provider Dank Potter MD Primary Care Provider [phone] Encounter Details Date Type Department Care Team (Late st Contact Info) Description 02/01/2022 Procedure Pass [facility], Ct Scan - [facility] [address] [place] [address] Social History Tobacco Use Types Packs/Day Years [...] 5:46 AM EST Olga Brown RN * Williamson Suicide Severity Rating Scale (Screener/Recent Self-Report) Question [...] documented as of this encounter Care Teams Japanese Professor Relationship Specialty Start Date End Date Pcp, Unknown PCP - General 02/01/22 07/06/22 Dank Nguyen MD [address] [place] [address] PCP - General Internal Medicine 07/07/22 Kassi Bal [address] [place] [phone] [email or web address] [facility] Electrical Journeyman 01/20/18 documented as of this encounter Additional Source Comments The information contained in this document represents components of the legal health record. It is not the complete legal health record.[facility]
--- OUTSIDE RECORDS SUMMARY | 2025-09-19 11:52 | XMS_ITS | Clinical Summary ---
Author Organization 175 [facility] Address [address] [place] [address] Phone Care Team Providers Care Director Report Name Role Phone Dank Nguyen MD Primary Care Provider Allergies Active Allergy Reactions Criticality Noted Date Comments Metformin Diarrhea 09/02/2024 Medications blood sugar diagnostic (FreeStyle Lite Strips) test strip To check FSG 3 times daily Active irbesartan (AVAPRO) 150 mg tablet Take 1 Tablet by mouth daily for 360 days. Active metoprolol succinate (Kapspargo Sprinkle) 100 mg capsule,sprinkle ,ER 24hr Take 1 Capsule by mouth daily. [...] mg (65 mg iron) EC tablet Active aluminum-magnesi um hydroxide-simeth icone (MAALOX) 200-200-20 mg/5 mL suspension Take 15 mL by mouth 4 times daily as needed (gastric ulcers). Active levalbuterol (XOPENEX HFA) 45 mcg/actuation inhaler Inhale 1-2 Puffs into the lungs every 4 hours as needed for Wheezing. Active albuterol HFA (PROAIR HFA ; PROVENTIL HFA ; VENTOLIN HFA) 90 mcg/actuation inhaler Inhale 2 Puffs into the lungs every 4 hours as needed for Cough or Wheezing. Active FREESTYLE LANCETS MISC To check FSG [...] by mouth 1 (one) time each day. Active ondansetron ODT (ZOFRAN-ODT) 4 mg disintegrating tablet Take 1 tablet (4 mg total) by mouth every 8 (eight) hours if needed. for nausea and vomiting Active albuterol HFA (PROAIR HFA ; PROVENTIL HFA ; VENTOLIN HFA) 90 mcg/actuation inhalerIndicatio ns:SOB (shortness of breath) Inhale 2 puffs by mouth every 6 (six) hours if needed for wheezing or shortness of breath. 1 each 025 2025 Active fluticasone furoate-vilanter oL (Breo Ellipta) 100-25 mcg/dose inhaler Inhale 1 puff by mouth 1 (one) time each day. 3 each Active albuterol HFA (Ventolin HFA) 90 mcg/actuation inhalerIndicatio ns:COPD with asthma (CMS/[facility] V24, CMS/HCC V28) Inhale 2 puffs by mouth every [...] open capsule. 180 each 025 2024 Active metoclopramide (REGLAN) 5 mg tablet TAKE 1 TABLET BY MOUTH 4 TIMES A DAY. 240 tablet Active galcanezumab-gnl m (EMGALITY) 120 mg/mL injection penIndications:C hronic migraine with aura without status migrainosus, not intractable Inject 1 mL (120 mg total) under the skin every 28 (twenty-eight) days. 3 each Active metoclopramide (REGLAN) 5 mg tablet Take 1 tablet (5 mg total) by mouth 4 (four) times a day. 240 each 025 2024 Discontinued galcanezumab-gnl m (EMGALITY) 120 mg/mL injection penIndications:C hronic migraine with aura without status migrainosus, not intractable Inject 1 mL (120 mg total) under the skin every 28 (twenty-eight) days. 3 each 3 025 2024 Discontinued(R eorder) Active Problems Problem Noted Date Diagnosed Date Iron deficiency anemia due to chronic blood loss 06/26/2025 Chronic kidney disease, stage 3a ([facility] V24, [place]/[facility] V28) 08/24/2024 Tachycardia 05/27/2024 Esophageal reflux 06/17/2022 Tendonitis of knee, right 04/29/2021 Right knee pain 04/29/2021 Osteoarthritis of right knee 04/29/2021 Major depressive disorder in partial remission ([facility] V24) 03/21/2021 DM (diabetes mellitus), type 2 with peripheral vascular complications ([facility] V24, [facility] V28) 08/30/2020 COVID-19 virus infection 08/24/2020 Insomnia 04/19/2020 Elevated alkaline phosphatase level 02/22/2020 Overview (09/02/2024): Elevated GGTP 08/2020, rec RUQ u/s Migraine with aura and witho ut status migrainosus, not intractable 02/17/2020 Erectile dysfunction 02/17/2020 Urolithiasis 01/03/2011 Overview (09/02/2024): Aba HTN (hypertension) 10/11/2009 Encounters Date Type Department Care Team Description 08/10/2025 Telephone Gastroenterology [facility] [address] [phone] Karina Johnson MD 08/02/2025 11:00 AM EDT Office Visit Internal Medicine [facility] [address] [phone] Dank Nguyen MD Type 2 diabetes mellitus without complication, with long-term current use of insulin ([facility] V24, [facility] V28) (Primary Dx); Primary hypertension; Hypercholesterolemi a; Stage 2 chronic kidney disease 08/02/2025 Telephone Internal Medicine [facility] [address] [phone] Cassidy Kinney, [place] 07/19/2025 9:40 AM EDT Office Visit Gastroenterology [facility] 175 [facility] 175 [facility] [address] [place] [address] Veronica Tobin NP Nausea and vomiting in adult patient (Primary Dx); Esophagitis, [place] grade D; Marijuana use; Elevated alkaline phosphatase level; History of gastric ulcer; Iron deficiency anemia, unspecified iron deficiency anemia type 07/19/2025 Telephone Gastroenterology [facility] 175 [facility] 175 [facility] [address] [place] [address] Veronica Tobin NP 07/12/2025 1:00 PM EDT - 07/12/2025 11:59 PM EDT Hospital Encounter [facility] [address] [place] [phone] John Conley MD Iron deficiency anemia due to chronic blood loss (Primary Dx) Discharge Disposition: Home or Self Care 07/07/2025 10:04 AM EDT - 07/07/2025 11:59 PM EDT Hospital Encounter [facility] [address] [place] [phone] John Conley MD Iron deficiency anemia due to chronic blood loss (Primary Dx) Discharge Disposition: Home or Self Care 07/07/2025 9:00 AM EDT Office Visit [facility] 175 [facility] [address] [place] [address] Mary Jo Oneil PA Chronic migraine with aura without status migrainosus, not intractable (Primary Dx) 06/20/2025 9:45 AM EDT Office Visit [facility] Hematology Oncology [address] [place] [phone] Tomer Allan MD Iron deficiency anemia due [...] Site/Laterality Comments UPPER GASTROINTESTINAL ENDOSCOPY 10/10/2020 PROCEDURE: IN UPPER GI ENDOSCOPY PERFORMED; COMMENT: LA grade C reflux esophagitis on current treatment with pantoprazole, pathology: Reflux, no virus infection. Medical History Medical History Date Comments Urolithiasis 01/03/2011 DX:Urolithiasis Esophageal reflux DX:Esophageal reflux Cervical spondylosis without myelopathy DX:Cervical spondylosis with out myelopathy Depressive disorder DX:Depressiv e disorder Diabetes mellitus type 2, co ntrolled, with complications ([facility] V24, [facility] V28) DX:Diabetes mellitus type 2, controlled, with complications ([facility]) Essential hypertension DX:Essent ial hypertension Stage 3 acute kidney injury ([facility] V24) DX:Stage 3 acute kidney inju ry ([facility]) Family History Medical History Relation Name Comments [...] Office Visit [facility] Hematology Oncology [address] [place] [phone] Tomer Allan MD [address] [place] [phone] 09/21/2025 8:[address] [facility] Nuclear Medicine [address] [place] [phone] 10/13/2025 10:[address] [facility] Endoscopy [address] [place] [phone] Felipe Koch DO [address] [place] [phone] 11/21/2025 9:45 AM EST Office Visit Pulmonology [facility] 175 [facility] [address] [place] [phone] Marlene Jiménez MD [address] [place] [phone] 11/22/2025 1:00 PM EST Office Visit [facility] [place] 175 [facility] [address] [place] [phone] Nazia Doherty MD [address] [place], [place] [phone] 12/01/2025 9:50 AM EST Office Visit [facility] [address] [place] [phone] Saad Scott MD [address] [place] [address] Dr [address] [place] [address] 02/01/2026 10:30 AM EDT Office Visit Internal Medicine - [place] 175 [facility] [address] [place] [address] Keith Fernandez, BBEE 175 [facility] [address] [place] [address] Health Maintenance Due Date Last Done Comments [...] deficiency anemia due to chronic blood loss SMOOTH MUSCLE ANTIBODY IGG Routine 09/15/2025 1:30 PM EDT Elevated alkaline phosphatase level IRON AND TIBC Routine 09/15/2025 1:30 PM EDT Iron deficiency anemia due to chronic blood loss COMPREHENSIVE METABOLIC PANEL Routine 05/22/2025 11:18 AM EDT Anemia, unspecified type HEMOGLOBIN A1C Routine 03/09/2025 2:19 PM EDT Type 2 diabetes mellitus without complication, with long-term current use of insulin (CMS/HCC V24, CMS/HCC V28) Primary hypertension Hypercholesterolemi a Depression, unspecified depression type LIPID PANEL WITH REFLEX TO DIRECT LDL Routine 03/09/2025 2:19 PM EDT Type 2 diabetes mellitus without complication, with long-term current use of insulin (CMS/HCC V24, CMS/HCC V28) Primary hypertension Hypercholesterolemi a Depression, unspecified depression type HEPATITIS C SCREENING Routine 05/06/2024 HIV SCREENING Routine 05/06/2024 URINE ALBUMIN CREATININE RATIO Routine 05/06/2024 DEPRESSION SCREENING Routine 04/29/2024 from Last 3 Months or Most Recently Relevant to Health Maintenance Results * (ABNORMAL) CBC auto differential (09/15/2025 1:30 PM EDT) [facility] WBC 6.7 4.8 - 10.8 K/mcL LAB HEMETOLOGY METHOD 09/15/2025 2:00 PM [facility] RBC 5.40 4.50 - 5.50 M/mcL LAB HEMETOLOGY METHOD 09/15/2025 2:00 PM [facility] Hemoglobin 13.7 13.5 - 17.5 g/dL LAB HEMETOLOGY METHOD 09/15/2025 2:00 PM [facility] Hematocrit 44.2 42.0 - 54.0 % LAB HEMETOLOGY METHOD 09/15/2025 2:00 PM [facility] MCV 82.3 79.0 - 98.0 FL LAB HEMETOLOGY METHOD 09/15/2025 2:00 PM [facility] MCH 25.5(L) 27.0 - 32.0 pcg LAB HEMETOLOGY METHOD 09/15/2025 2:00 PM [facility] MCHC 31.0(L) 32.0 - 37.0 g/dL LAB HEMETOLOGY METHOD 09/15/2025 2:00 PM [facility] RDW 15.1(H) 11.0 - 15.0 % LAB HEMETOLOGY METHOD 09/15/2025 2:00 PM [facility] Platelets 256 130 - 400 K/mcL LAB HEMETOLOGY METHOD 09/15/2025 [facility]:00 [facility] MPV 10.6 7.0 - 11.0 FL LAB HEMETOLOGY METHOD 09/15/2025 2:00 PM [facility] NRBC 0.0 <1.0 % LAB HEMETOLOGY METHOD 09/15/2025 2:00 PM [facility] NRBC Absolute 0.00 <0.10 K/mcL LAB HEMETOLOGY METHOD 09/15/2025 2:00 PM [facility] Neutrophils Relative 57.7 % LAB HEMETOLOGY METHOD 09/15/2025 2:00 PM [facility] Lymphocytes Relative 30.0 % LAB HEMETOLOGY METHOD 09/15/2025 2:00 PM [facility] Monocytes Relative 7.5 % LAB HEMETOLOGY METHOD 09/15/2025 2:00 PM [facility] Eosinophils Relative 4.0 % LAB HEMETOLOGY METHOD 09/15/2025 2:00 PM [facility] Basophils Relative 0.7 % LAB HEMETOLOGY METHOD 09/15/2025 2:00 PM [facility] Immature Granulocytes Relative 0.1 % LAB HEMETOLOGY METHOD 09/15/2025 2:00 PM [facility] Neutrophils Absolute 3.87 1.50 - 7.00 K/mcL LAB HEMETOLOGY METHOD 09/15/2025 2:00 PM EDT [facility] Lymphocytes Absolute 2.01 1.00 - 5.00 K/mcL LAB HEMETOLOGY METHOD 09/15/2025 2:00 PM EDT [facility] Monocytes Absolute 0.50 0.20 - 1.00 K/mcL LAB HEMETOLOGY METHOD 09/15/2025 2:00 PM EDT [facility] Eosinophils Absolute 0.27 0.00 - 0.50 K/[facility] LAB HEMETOLOGY METHOD 09/15/2025 2:00 PM EDT [facility] Basophils Absolute 0.05 0.00 - 0.20 K/mcL LAB HEMETOLOGY METHOD 09/15/2025 2:00 PM EDT [facility] Immature Granulocytes Absolute 0.01 0.00 - 0.03 K/mcL LAB HEMETOLOGY METHOD 09/15/2025 2:00 PM EDT [facility] Blood Venous blood specimen / Unknown Venipuncture / Unknown 09/15/2025 1:30 PM EDT 09/15/2025 1:30 PM EDT Tomer Allan MD LAB BLOOD ORDERABLES Final Result [facility] [address] [place] [address], * Iron and TIBC (09/15/2025 1:30 PM EDT) Iron 63 50 - 160 mcg/dL LAB CHEMISTRY METHOD 09/15/2025 3:38 PM EDT [facility] TIBC 280 250 - 450 mcg/dL LAB CHEMISTRY METHOD 09/15/2025 3:38 PM EDT [facility] Iron Saturation 23 20 - 50 % LAB CHEMISTRY METHOD 09/15/2025 3:38 PM EDT [facility] Blood Venous blood specimen / Unknown Venipuncture / Unknown 09/15/2025 1:30 PM EDT 09/15/2025 1:30 PM EDT Tomer Allan MD LAB BLOOD ORDERABLES Final Result [facility] [address] [place] [address], [place] [phone] * Smooth muscle antibody IgG (09/15/2025 1:30 PM EDT) Pathologist [facility] Smooth Muscle (F-Actin) IgG Ab 2 <20 UNITS 09/18/2025 2:13 PM EDT [facility] Comment: Interpretation: Negative Test performed at [facility], [address] , [place] [address] Melany Gooden MD, PhD - Credit Clerk Blood Venous blood specimen / Unknown Venipuncture / Unknown 09/15/2025 1:30 PM EDT 09/15/2025 1:30 PM EDT Veronica Tobin MACHINE BUFFER LAB BLOOD ORDERABLES Final Resu lt Performing Organization Address [facility]/ZIP Co de Phone Number [facility] [address] [place] [address] * Ferritin (09/15/2025 1:30 PM EDT) Pathologist [facility] Ferritin 79 26 - 388 ng/mL LAB CHEMISTRY METHOD 09/15/2025 3:39 PM EDT [facility] Blood Venous blood specimen / Unknown Venipuncture / Unknown 09/15/2025 1:30 PM EDT 09/15/2025 1:30 PM EDT Tomer Allan MD LAB BLOOD ORDERABLES Final Result [facility] [address] [place] [address], [place] [phone] * (ABNORMAL) Comprehensive metabolic panel (05/22/2025 11:18 AM EDT) Sodium 141 133 - 145 mmol/L LAB CHEMISTRY METHOD 05/22/2025 2:45 PM [facility] Potassium 4.2 3.5 - 5.5 mmol/L LAB CHEMISTRY METHOD 05/22/2025 2:45 PM [facility] Chloride 106 96 - 110 mmol/L LAB CHEMISTRY METHOD 05/22/2025 2:45 PM [facility] CO2 25 21 - 32 mmol/L LAB CHEMISTRY METHOD 05/22/2025 2:45 PM [facility] Anion Gap 10 3 - 11 LAB CHEMISTRY METHOD 05/22/2025 2:45 PM [facility] Glucose 197(H) 70 - 100 mg/dL LAB CHEMISTRY METHOD 05/22/2025 2:45 PM [facility] BUN 17 5 - 25 mg/dL LAB CHEMISTRY METHOD 05/22/2025 2:45 PM [facility] Creatinine 1.47(H) 0.70 - 1.30 mg/dL LAB CHEMISTRY METHOD 05/22/2025 2:45 PM [facility] eGFR 59(L) >=60 mL/min/1. 73m2 LAB CHEMISTRY METHOD 05/22/2025 2:45 PM [facility] Comment:Calculation based on the Chronic Kidney Disease Epidemiology Collaboration (CKD-EPI) equation refit without adjustment for race. BUN/Creatinine Ratio 11.6 LAB CHEMISTRY METHOD 05/22/2025 2:45 PM [facility] Calcium 8.9 8.5 - 10.5 mg/dL LAB CHEMISTRY METHOD 05/22/2025 2:45 PM [facility] AST (SGOT) 9(L) 10 - 42 unit/L LAB CHEMISTRY METHOD 05/22/2025 2:45 PM [facility] ALT (SGPT) 18 10 - 60 unit/L LAB CHEMISTRY METHOD 05/22/2025 2:45 PM EDT [facility] Alkaline Phosphatase 212(H) 42 - 121 unit/L LAB CHEMISTRY METHOD 05/22/2025 2:45 PM EDT [facility] Total Protein 7.4 6.0 - 8.0 g/dL LAB CHEMISTRY METHOD 05/22/2025 2:45 PM EDT [facility] Albumin 3.8 3.2 - 5.0 g/dL LAB CHEMISTRY METHOD 05/22/2025 2:45 PM EDT [facility] Total Bilirubin 1.3 0.0 - 1.4 mg/dL LAB CHEMISTRY METHOD 05/22/2025 2:45 PM T [facility] Blood Venous blood specimen / Unknown Venipuncture / Unknown 05/22/2025 11:18 AM EDT 05/22/2025 1:31 PM EDT us Tomer Allan MD LAB BLOOD ORDERABLES Final Result [facility] [address] [place] [address], [place] [phone] * (ABNORMAL) Lipid panel with reflex to direct LDL (03/09/2025 2:19 PM EDT) Cholesterol 157 0 - 200 mg/dL LAB CHEMISTRY METHOD 03/09/2025 3:41 PM T [facility] Triglycerides 163(H) 0 - 150 mg/dL LAB CHEMISTRY METHOD 03/09/2025 3:41 PM [facility] HDL 70 >=40 mg/dL LAB CHEMISTRY METHOD 03/09/2025 3:41 PM [facility] LDL Calculated 54 0 - 100 mg/dL LAB CHEMISTRY METHOD 03/09/2025 3:41 PM [facility] VLDL Cholesterol August 32.6 mg/dL LAB CHEMISTRY METHOD 03/09/2025 3:41 PM EDT [facility] Non HDL Chol. (LDL+VLDL) 87 <145 mg/dL LAB CHEMISTRY METHOD 03/09/2025 3:41 PM EDT [facility] Chol/HDL Ratio 2.2 0.0 - 4.4 LAB CHEMISTRY METHOD 03/09/2025 3:41 PM EDT [facility] Blood Venous blood specimen / Unknown Venipuncture / Unknown 03/09/2025 2:19 PM EDT 03/09/2025 2:37 PM EDT us Dank Nguyen MD LAB BLOOD ORDERABLES Final Resul t Performing Organization Address City/[facility]/ZIP Co de Phone Number [facility] [address] [place] [address], [place] [phone] * (ABNORMAL) Hemoglobin A1c (03/09/2025 2:19 PM EDT) Hemoglobin A1C 12.5(H) <6.5 % LAB CHEMISTRY METHOD 03/09/2025 9:35 PM EDT [facility] Mean Bld Glu Estim. 312 mg/dL LAB CHEMISTRY METHOD 03/09/2025 9:35 PM EDT [facility] Blood Venous blood specimen / Unknown Venipuncture / Unknown 03/09/2025 2:19 PM EDT 03/09/2025 2:40 PM EDT us Dank Nguyen MD LAB BLOOD ORDERABLES Final Resul t [facility] [address] [place] [address], [place] [phone] * HM Urine Albumin Creatinine Ratio (05/06/2024) Urine Albumin Creatinine Ratio Abstracted us Sadaf López MD HEALTH MAINTENANCE Final Result * Hm HIV Screening (05/06/2024) HIV Screening Abstracted Historical Provider HEALTH MAINTENANCE Final Result * Hepatitis C Screening (05/06/2024) Hepatitis C Screening Abstracted Historical Provider HEALTH MAINTENANCE Final Result * Depression Screening (04/29/2024) Depression Screening Abstracted Historical Provider HEALTH MAINTENANCE Final Result from Last 3 Months or Most Recently Relevant to Health Maintenance Additional Health Concerns Active Problems Noted Date Diagnosed Date Autogenerated Problem 09/14/2025 Insurance [facility] [place] [address] Care Teams Director Report Relationship Specialty Start Date End Date Dank Nguyen MD [address] [facility] [address] [place] [address] PCP - General Internal Medicine 04/23/21
--- OUTSIDE RECORDS SUMMARY | 2025-09-19 11:52 | XMS_ITS | Clinical Summary ---
Author Organization [facility] Address [address] [place] [address] Phone Care Team Providers Care Acquisitions Logistics Analyst Name Role Phone Kassi Bal Uriel Unavailable Dank Nguyen MD Primary Care Provider [phone] Allergies No known active allergies Medications citalopram [...] 3:20 PM EDT): Patient was admitted to [facility] in 2018 and he required a consent in January 2022, presentation most consistent with cyclic vomiting syndrome, patient was without a primary care physician at his last hospitalization he tells me he has one now in [place], he was asked to obtain a gastric emptying study but I do not believe that this happened -IV fluid resuscitation -IV Ativan -Zofran -Clear liquid diet -KUB pending -Consult GI if felt to be necessary -hot Showers Vomiting with nausea, not intractable 02/01/2022 Assessment & Plan (02/03/2022 8:30 AM EDT): Patient admitted to [facility] in 2018 with very similar clinical picture [...] to touch base with Kassi Bal, collab early breastfeeding care specialist. Pt works for most of the day [...] In addition to the medication, our collaborative animal daycare provider will be reaching out to you. She [...] doing any non-medication therapy or taking any fsoa-nrp-tqkggtm medication to treat your anxiety or depression? No Are you currently speaking with a mental health specialist (ex. psychologist, therapist, social work faculty member)? No Since your last visit have you been: Seen in the ER or hospital ? Please explain where and when: Start vomiting and nausea Do you have any other questions for your doctor you want to ask BEFORE your next visit? No Daytime phone number [phone] Assessment & Plan (12/15/2017 11:51 AM EST): [...] doing any non-medication therapy or taking any gzhv-bif-gbrnamk medication to treat your anxiety or depression? No Are you currently speaking with a mental health specialist (ex. psychologist, therapist, social work faculty member)? No Since your last visit have you been: Seen in the ER or hospital ? Please explain where and when: ER Do you have any other questions for your doctor you want to ask BEFORE your next visit? 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 Continue tadalafil 10 mg [...] been able to follow up with a jewelry designer for multiple freckles. Ambulatory referral to [facility] Dermatology provided for a skin check; significance explained. Assessment & Plan (01/26/2018 9:29 AM EST): Has multiple freckles all over his body. Recommended to visit jewelry designer for further evaluation and management, contact number provided. Assessment & Plan (11/05/2017 5:15 AM EST): Has multiples freckles all over the body. Denies history of skin cancer in family. Ambulatory referral to [facility] Dermatology provided. Assessment & Plan (05/06/2017 7:40 [...] prevention of skin cancer. Recommended to visit jewelry designer for further treatment and evaluation; referral provided to [facility] Dermatology. Health care maintenance 05/05/2017 Assessment & [...] Wears contact lenses. States he visited an cut filer in the past for diabetic eye examination. [...] complications of smoking. Ambulatory referral provided to [facility] ( Smoking, Tobacco Cessation). [...] units nightly while he was at the [facility]. Has not followed up with ribbon blockmaker, Dr. Mert Dickson, since February 2018. Had [...] current management. Refills provided. Ambulatory referral to [facility] Den Diabetic Retinopathy and [facility] Orthopaedics provided for diabetic eye and foot exam respectively. Advised to call and set up an appointment with [facility]; contact details provided. Assessment & Plan (01/03/2019 3:55 PM EST): Called to discuss upcoming group visit program; no answer Assessment & Plan (09/11/2018 9:50 AM EDT): Takes insulin glargine 30 units nightly, and uses insulin aspart for sliding scale. Follows up with [facility], last saw ribbon blockmaker, Dr. Dickson, in February 2018. States he was homeless for about two months, lived in snf, and was not eating properly. He was [...] call and set up an appointment with [facility]. Follow up with me in three months. Assessment & Plan (03/25/2018 7:31 PM EDT): On insulin aspart U-100 and insulin glargine. Follows up with [facility]. Blood work obtained on May [...] diabetic retinopathy for which he visited an cut filer. Continue current management, refills provided at request. [...] Has scheduled follow up appointment with the [facility] endocrine dept on 11/09. He has never consulted with wound/ostomy nurse. Reviewed and discussed previous HbA1c. Continue current management. Encouraged and appreciated continuous blood glucose monitoring. Advised to follow up with ribbon blockmaker on scheduled date. Ambulatory referral to [facility] Podiatry for DM foot care provided; relevance reviewed. Assessment & Plan (08/12/2017 12:17 PM EDT): On Insulin Aspart (NovoLog) sliding scale with meals (typically 10-15 U based on carbs) and Insulin Glargine (Lantus, Basaglar) 30 units at night. HbA1c obtained on May 09, 2017, was 12.7% whereas on July 20, 2017, was 11.3%. Mentions he visited ribbon blockmaker, Dr. Dickson on July 20, 2017. During this visit the Insulin Glargine dosage was decreased from 40 units to 30 units. He was advised dietary modification that included restriction of carbohydrates and advised to maintain physical activity. Follows up with travel assistant, Kirsten Faith with significant benefits and is due for a follow up this evening. Reports his morning blood glucose levels on home monitor are in range of 128 to 130 mg/dL. His weight was 151 lbs in May 2017 and is 175 lbs on today's visit. Continue current management. Refills provided. Continue follow up with the travel assistant and ribbon blockmaker. Discussed about complications of diabetes. Follow up [...] to his job, amenable for consultation with nutrition coordinator. Obtain GAD65 antibody, C-peptide for evaluation of diabetes type. Obtain microalbumin/creatinine ratio, random urine and HbA1c level. Renewed prescription for Lantus insulin and NovoLog insulin for 90 days with 3 refills. . Ambulatory referral provided to [facility]; inform me if does not receive call for scheduling an appointment. Ambulatory referral provided to [facility] Nutrition Services for more targeted recommendation on [...] with uncontrolled diabetes. Update me on Patient [place] about recommendations from travel assistant and collateral specialist. Resolved Problems Problem Noted Date Diagnosed Date Resolved Date Homeless 09/09/2018 02/17/2019 Assessment & Plan (09/11/2018 9:53 AM EDT): He was homeless for two months, was living in a snf, and now has been living in a [...] new apt. Ambulatory referral to [facility] provided for housing and financial assistance. [...] referral for it. Ambulatory referral provided to [facility] Physical Therapy. Assessment & Plan (01/26/2018 9:27 [...] any other underlying cause. Ambulatory referral to [facility] Physical Therapy provided for further evaluation and management. Follow up with me in 6 months or sooner if needed. Intractable cyclical vomiting with nausea 01/25/2018 02/17/2019 Assessment & Plan (01/26/2018 9:30 AM EST): Mentions he was admitted in the ED at the [facility] on December 22, 2017 for [...] HEMOGLOBIN A1C 9.6(H) 4.3 - 5.8 % [facility] Blood 07/07/2022 4:28 AM EDT 07/07/2022 4:48 AM EDT Saad Nye MD LAB BLOOD ORDERABLES Final Result [facility] [address] [place] [address] * (ABNORMAL) Lipid panel (02/17/2019 7:22 PM EDT) HDL 71 35 - 100 mg/dL [facility] CHOLESTEROL 146 <200 mg/dL [facility] TRIGLYCERIDES 35(L) 40 - 150 mg/dL [facility] LDL 68 50 - 129 mg/dL [facility] CARDIAC RISK RATIO 2.1 0.0 - 5.0 [facility] NON-HDL CHOLESTEROL 75 mg/dL [facility] Comment:NCEP ATP III guideli bianka suggest a non-HDL cholesterol goal 30 mg/dl higher than the patient-specific LDL goal. 02/17/2019 7:22 PM EDT 02/17/2019 7:34 PM EDT us Americo Garcia MD LAB BLOOD ORDERABLES Final Resu lt Performing Organization Address [facility]/ZIP Co de Phone Number [address] [address] * (ABNORMAL) Microalbumin/creatinine ratio, random urine (09/09/2018 5:53 PM EDT) URINE MICROALBUMIN 2.5(H) 0.0 - 2.0 mg/dL [facility] URINE CREATININE 307 mg/dL [facility] MICROALB/CRE RATIO 8.1 <30.0 mg/g Cre [facility] Urine 09/09/2018 5:53 PM EDT 09/09/2018 6:16 PM EDT us Americo Garcia MD URINE ORDERABLES Final Result [facility] [address] [place] [address] from Last 3 Months or Most Recently Relevant to Health Maintenance Insurance [place] [facility] EPO [place] O POS EPO [facility] POS EPO [place] [facility] T[facility] O POS EPO [place] [employer] [place] EPO Advance Directives For more information, please contact: [phone] (9AM - 5PM [facility], Thursday-Thursday) * Full Code (Latest Code [...] 11:55 PM 03/09/2018 5:42 PM Care Teams Acquisitions Logistics Analyst Relationship Specialty Start Date End Date Dank Nguyen MD [address] [place] [address] PCP - General Internal Medicine 07/07/22 Kassi Bal [address] [place] [id number] [email or web address] Content Publisher 01/20/18 Additional Source Comments The information contained in this document represents components of the legal health record. It is not the complete legal health record.[facility]
== END 2025-09-19 10:19 | disposition home or self-care (01) ==
LOC: HO.HKAS 10:00
PROVIDERS: PCP Internal Medicine; Visit Provider Internal Medicine Nephrology
DX: E11.22 Type 2 diabetes mellitus with diabetic chronic kidney disease (principal); N18.30 Chronic kidney disease, stage 3 unspecified; I10 Essential (primary) hypertension
CPT/HCPCS: 99214

== ENCOUNTER 2025-10-11 11:43 | Outpatient (REF) | payer OTHER, SELFPAY ==
[2025-10-11 20:00] LABS: Anion Gap 14 (12-20); Blood Urea Nitrogen 19 mg/dL (9-16); Carbon Dioxide 27 mmol/L (22-29); Chloride 104 mmol/L (96-108); Estimated Glomerular Filt Rate 60; Potassium 4.1 mmol/L (3.3-5.1); Sodium 141 mmol/L (135-145)
[2025-10-11 20:42] LABS: Total Volume 24 Hour Urine 350 mL
[2025-10-11 20:45] LABS: Creatinine (CrCl) 1.28 mg/dL (0.5-1.4)
--- OUTSIDE RECORDS SUMMARY | 2025-10-11 22:52 | XMS_ITS | Encounter Summary ---
Author Organization [facility] Address [address] [place] [address] Phone Care Team Providers Care Manager Cardiac Cath Name Role Phone Americo Garcia MD Primary Care Provider [phone] Americo Garcia MD Unavailable [phone] Kassi Bal Unavailable Pcp, Unknown Primary Care Provider Unavailabl e Dank Nguyen MD Primary Care Provider [phone] Encounter Details Date Type Department Care Team (Late st Contact Info) Description 08/19/2017 Telephone [facility] Adult Medicine [address] [place] [address] Americo Garcia MD [address] [place] [address] [email or web address] Social History Tobacco Use [...] on filedocumented in this encounter Care Teams Manager Cardiac Cath Relationship Specialty Start Date End Date Americo Garcia MD [address] [place] [address] [email or web address] PCP - General Internal Medicine 05/05/17 12/15/21 Pcp, Unknown PCP - General 02/01/22 07/06/22 Dank Nguyen MD [address] [place] [address] [address] [place] [address] PCP - General Internal Medicine 07/07/22 Americo Garcia MD [address] [place] [address] Ave[address] [place] [address] [email or web address] Partners Attributed Provider 05/24/17 03/02/21 Kassi Bal [address] [place] [address] [place] [id number] [email or web address] [facility] Supervisor Coremaker 01/20/18 documented as of this encounter Additional Source Comments The information contained in this document represents components of the legal health record. It is not the complete legal health record.[facility]
--- OUTSIDE RECORDS SUMMARY | 2025-10-11 22:52 | XMS_ITS | Clinical Summary ---
Author Organization [employer] [facility] Address [address] [place] [address] Care Team Providers Care Plastic Shaper Name Role Phone Dank Nguyen MD Primary [...] age to complete this topic Care Teams Plastic Shaper Relationship Specialty Start Date End Date Dank Nguyen MD PCP - General Internal Medicine 05/13/23
--- OUTSIDE RECORDS SUMMARY | 2025-10-11 22:52 | XMS_ITS | Encounter Summary ---
Author Organization [facility] Address [address] [place] [address] Phone Care Team Providers Care Distillery Miller Name Role Phone Kassi Bal Unavailable Pcp, Unknown Primary Care Provider Dank Potter MD Primary Care Provider [phone] Encounter Details Date Type Department Care Team (Late st Contact Info) Description 02/01/2022 Procedure Pass [facility], Ct Scan - [facility] [address] [place] [address] Social History Tobacco Use Types Packs/Day Years [...] 5:46 AM EST Olga Brown RN * [place] Suicide Severity Rating Scale (Screener/Recent Self-Report) Question [...] documented as of this encounter Care Teams Distillery Miller Relationship Specialty Start Date End Date Pcp, Unknown PCP - General 02/01/22 07/06/22 Dank Nguyen MD [address] [place] [address] PCP - General Internal Medicine 07/07/22 Kassi Bal [address] [place] [phone] [email or web address] Collaborative Care Financial Examiner 01/20/18 documented as of this encounter Additional Source Comments The information contained in this document represents components of the legal health record. It is not the complete legal health record.[facility]
--- OUTSIDE RECORDS SUMMARY | 2025-10-11 22:52 | XMS_ITS | Clinical Summary ---
Author Organization [facility] Address [address] [place] [address] Care Team Providers Care Cathead Operator Name Role Phone Unavailable Primary Care Provider [...] patient's age to complete this topic Insurance [facility]
--- OUTSIDE RECORDS SUMMARY | 2025-10-11 22:53 | XMS_ITS | Clinical Summary ---
Author Organization [facility] Address [address] [place] [address] Phone Care Team Providers Care Health And Safety Coordinator Name Role Phone Rebecca Parker Primary Care Provider [phone] Allergies Active Allergy Reactions Criticality Noted Date [...] been able to follow up with a rug underlay machine operator for multiple freckles. Ambulatory referral to [facility] Dermatology provided for a skin check; significance [...] Visit [facility] [address] [place] [address] Fabian Haider MD [address] [place] [address] Health Maintenance Due Date Last [...] Hemoglobin A1C 8.3(H) 4.8 - 5.9 % [facility] 03/08/2024 03/09/2024 8:3 4 AM EDT Narrative [facility] - 03/09/2024 Unless otherwise specified, test(s) performed at: [facility], [address] [place], [place] [id number] MACHINE PIE MAKER: Joe Guerrero M.D. For any questions, please call customer service at FREQUENCY:MONTHLY Resulting Agency Comment Specimen source: Blood us Micha Jiménez MD LAB BLOOD BANK TEST ORDERABLES F inal Result [facility] See order comments or contact performing lab Unknown, [place] from Last 3 Months or Most Recently Relevant to Health Maintenance Insurance [address] [place] [address] [employer] Commercial Medicaid [place] [facility] Medicaid Care Teams Health And Safety Coordinator Relationship Specialty Start Date End Date Rebecca Parker [address] [place] [address] PCP - General Nurse Practitioner 08/10/24
--- OUTSIDE RECORDS SUMMARY | 2025-10-11 22:53 | XMS_ITS | Clinical Summary ---
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 Role Phone Dank Nguyen MD Primary Care Provider [phone] Allergies Active Allergy Reactions Criticality Noted Date [...] HFA) 90 mcg/actuation inhalerIndicatio ns:COPD with asthma (CMS/[facility] V24, CMS/HCC V28) Inhale 2 puffs by [...] loss 06/26/2025 Chronic kidney disease, stage 3a ([facility] V24, [place]/[facility] V28) 08/24/2024 Tachycardia 05/27/2024 Esophageal reflux 06/17/2022 Tendonitis of knee, right 04/29/2021 Right knee pain 04/29/2021 Osteoarthritis of right knee 04/29/2021 Major depressive disorder in partial remission ([facility] V24) 03/21/2021 DM (diabetes mellitus), type 2 with peripheral vascular complications ([facility] V24, [facility] V28) 08/30/2020 COVID-19 virus infection 08/24/2020 Insomnia 04/19/2020 Elevated alkaline phosphatase level 02/22/2020 Overview (09/02/2024): Elevated GGTP 08/2020, rec RUQ u/s Migraine with aura and witho ut status migrainosus, not intractable 02/17/2020 Erectile dysfunction 02/17/2020 Urolithiasis 01/03/2011 Overview (09/02/2024): Aba HTN (hypertension) 10/11/2009 Encounters Date Type Department Care Team Description 10/11/2025 12:15 PM EST Lab Draw Station - 175 [facility] 175 [facility] [address] [place] [phone] Antimitochondrial antibody positive 10/11/2025 Results Follow-Up Gastroenterology - 299 [facility] 299 [facility] [address] [place] [phone] Veronica Tobin NP 09/22/2025 Results Follow-Up Gastroenterology - [place] 175 [facility] 175 [facility] [address] [place] [phone] Veronica Tobin NP 09/21/2025 8:00 AM EDT - 09/21/2025 11:59 PM EDT Hospital Encounter [facility] Nuclear Medicine [address] [place] [phone] Nausea and vomiting in adult patient Discharge Disposition: Home or Self Care 08/10/2025 Telephone Gastroenterology [facility] [address] [phone] Karina Johnson MD 08/02/2025 11:00 AM EDT Office Visit Internal Medicine [address] [phone] Dank Nguyen MD Type 2 diabetes mellitus without complication, with long-term current use of insulin ([facility] V24, [facility] V28) (Primary Dx); Primary hypertension; Hypercholesterolemia; Stage 2 chronic kidney disease 08/02/2025 Telephone Internal Medicine - [address] [phone] Cassidy Kinney [place] 07/19/2025 9:40 AM EDT Office Visit Gastroenterology [address] [phone] Veronica Tobin NP Nausea and vomiting in adult patient (Primary Dx); Esophagitis, Valyermo grade D; Marijuana use; Elevated alkaline phosphatase level; History of gastric ulcer; Iron deficiency anemia, unspecified iron deficiency anemia type 07/19/2025 Telephone Gastroenterology [address] [phone] Veronica Tobin NP 07/12/2025 1:00 PM EDT - 07/12/2025 11:59 PM EDT Hospital Encounter [facility] Infusion Center 271 [facility] 2nd [place] [phone] John Conley MD Iron deficiency anemia due to chronic blood loss (Primary Dx) Discharge Disposition: Home or Self Care from Last 3 Months Immunizations Immunization Administration Dates Next Due Influenza trivalent, 0.5mL, preservative free (Fluarix; FluLaval; Fluzone) ages 6mo and older (Afluria) 3 years and older 09/14/2012,10/11/2010 Pneumococcal polysaccharide 23 valent (Pneumovax 23) 2yo and older 03/21/2021 Td Tetanus diptheria (Tdvax) 7yo and older 11/23 Surgical History Surgery Date Site/Laterality Comments UPPER GASTROINTESTINAL ENDOSCOPY 10/10/2020 PROCEDURE: [facility] UPPER GI ENDOSCOPY PERFORMED; COMMENT: BARRON grade C reflux esophagitis on current treatment with pantoprazole, pathology: Reflux, no virus infection. Medical History Medical History Date Comments Urolithiasis 01/03/2011 DX:Urolithiasis Esophageal reflux DX:Esophageal reflux Cervical spondylosis without myelopathy DX:Cervical spondylosis with out myelopathy Depressive disorder DX:Depressiv e disorder Diabetes mellitus type 2, co ntrolled, with complications ([facility] V24, [facility] V28) DX:Diabetes mellitus type 2, controlled, with complications ([facility]) Essential hypertension DX:Essent ial hypertension Stage 3 acute kidney injury ([facility] V24) DX:Stage 3 acute kidney inju ry ([facility]) Family History Medical History Relation Name Comments Diabetes Maternal Grandfather Other cancer Mother Relation Name Status Comments Brother 1 Alive Brother 2 Alive Father Alive Maternal Grandfather Mother Alive Social History Tobacco Use Types Packs/Day Years Used Date Smoking Tobacco: Former Cigarettes 0.3 Q uit: 11/23/2004 Smokeless Tobacco: Never Tobacco [...] Care Team (Late st Contact Info) Description 10/13/2025 10:00 AM EST Hospital Encounter [facility] Endoscopy [address] [place] [phone] Felipe Koch DO 299 [facility] [address] [place] [address] 11/21/2025 9:45 AM EST Office Visit Pulmonology - [place] 175 [facility] [address] [place] [phone] Marlene Jiménez MD [address] [place] [phone] 11/22/2025 1:00 PM EST Office Visit [facility] - [place] 175 [facility] [address] [place] [phone] Nazia Doherty MD 175 [place] [address] 12/01/2025 9:50 AM EST Office Visit [facility] - [address] [place] [phone] Saad Scott MD [address] [place] [address] [address] [place] [phone] 02/01/2026 10:30 AM EDT Office Visit Internal Medicine - [place] 175 [facility] [address] [place] [phone] Keith Fernandez NP 175 [facility] [address] [place] [address] Health Maintenance Due Date Last Done Comments [...] Diagnosis Comments CBC WITH AUTO DIFFERENTIAL Routine 10/11/2025 12:15 PM EST Antimitochondrial antibody positive PROTHROMBIN TIME WITH INR Routine 2024 12:15 PM EST Antimitochondrial antibody positive CBC AND DIFFERENTIAL Routine 10/11/2025 12:15 PM EST Antimitochondrial antibody positive NM GASTRIC EMPTYING STUDY Routine 2024 9:28 AM EDT Nausea and vomiting in adult patient EXTERNAL CLINICAL LAB 09/19/2025 EXTERNAL CLINICAL LAB 09/19/2025 EXTERNAL CLINICAL LAB 09/19/2025 CBC WITH AUTO DIFFERENTIAL Routine 09/15/2025 1:30 PM EDT Iron deficiency anemia due to chronic blood loss CBC AND DIFFERENTIAL Routine 09/15/2025 1:30 PM EDT Iron deficiency anemia due to chronic blood loss FERRITIN Routine 09/15/2025 1:30 PM EDT Iron deficiency anemia due to chronic blood loss ANTIMITOCHONDRIAL ANTIBODY Routine 09/15/2025 1:30 PM EDT Elevated alkaline phosphatase level SMOOTH MUSCLE ANTIBODY IGG Routine 09/15/2025 1:30 PM EDT Elevated alkaline phosphatase level ALKALINE PHOSPHATASE, ISOENZYMES Routine 09/15/2025 1:30 PM EDT Elevated alkaline phosphatase level IRON AND TIBC Routine 09/15/2025 1:30 PM EDT Iron deficiency anemia due to chronic blood loss COMPREHENSIVE METABOLIC PANEL Routine 05/22/2025 11:18 AM EDT Anemia, unspecified type HEMOGLOBIN A1C Routine 03/09/2025 2:19 PM EDT Type 2 diabetes mellitus without complication, with long-term current use of insulin (CMS/HCC V24, CMS/HCC V28) Primary hypertension Hypercholesterolem ia Depression, unspecified depression type LIPID PANEL WITH REFLEX TO DIRECT LDL Routine 03/09/2025 2:19 PM EDT Type 2 diabetes mellitus without complication, with long-term current use of insulin (CMS/HCC V24, CMS/HCC V28) Primary hypertension Hypercholesterolem ia Depression, unspecified depression type HM HEPATITIS C SCREENING Routine 05/06/2024 HM HIV SCREENING Routine 05/06/2024 HM URINE ALBUMIN CREATININE RATIO Routine 05/06/2024 HM DEPRESSION SCREENING Routine 04/29/2024 from Last 3 Months or Most Recently Relevant to Health Maintenance Results * (ABNORMAL) CBC auto differential (10/11/2025 12:15 PM EST) Only the most recent of2 resultswithin the time period is included. WBC 8.7 4.8 - 10.8 K/mcL LAB HEMETOLOGY METHOD 10/11/2025 2:15 PM EST [facility] RBC 5.40 4.50 - 5.50 M/mcL LAB HEMETOLOGY METHOD 10/11/2025 2:15 PM EST [facility] Hemoglobin 14.0 13.5 - 17.5 g/dL LAB HEMETOLOGY METHOD 10/11/2025 2:15 PM [facility] Hematocrit 45.0 42.0 - 54.0 % LAB HEMETOLOGY METHOD 10/11/2025 2:15 PM [facility] MCV 83.0 79.0 - 98.0 FL LAB HEMETOLOGY METHOD 10/11/2025 2:15 PM [facility] MCH 25.8(L) 27.0 - 32.0 pcg LAB HEMETOLOGY METHOD 10/11/2025 2:15 PM [facility] MCHC 31.1(L) 32.0 - 37.0 g/dL LAB HEMETOLOGY METHOD 10/11/2025 2:15 PM [facility] RDW 14.0 11.0 - 15.0 % LAB HEMETOLOGY METHOD 10/11/2025 2:15 PM [facility] Platelets 269 130 - 400 K/mcL LAB HEMETOLOGY METHOD 10/11/2025 2:15 PM [facility] MPV 11.3(H) 7.0 - 11.0 FL LAB HEMETOLOGY METHOD 10/11/2025 2:15 PM [facility] NRBC 0.0 <1.0 % LAB HEMETOLOGY METHOD 10/11/2025 2:15 PM [facility] NRBC Absolute 0.00 <0.10 K/mcL LAB HEMETOLOGY METHOD 10/11/2025 2:15 PM [facility] Neutrophils Relative 56.2 % LAB HEMETOLOGY METHOD 10/11/2025 2:15 PM [facility] Lymphocytes Relative 33.4 % LAB HEMETOLOGY METHOD 10/11/2025 2:15 PM [facility] Monocytes Relative 7.1 % LAB HEMETOLOGY METHOD 10/11/2025 2:15 PM [facility] Eosinophils Relative 2.6 % LAB HEMETOLOGY METHOD 10/11/2025 2:15 PM EST [facility] Basophils Relative 0.5 % LAB HEMETOLOGY METHOD 10/11/2025 2:15 PM EST [facility] Immature Granulocytes Relative 0.2 % LAB HEMETOLOGY METHOD 10/11/2025 2:15 PM EST [facility] Neutrophils Absolute 4.89 1.50 - 7.00 K/mcL LAB HEMETOLOGY METHOD 10/11/2025 2:15 PM EST [facility] Lymphocytes Absolute 2.91 1.00 - 5.00 K/mcL LAB HEMETOLOGY METHOD 10/11/2025 2:15 PM EST [facility] Monocytes Absolute 0.62 0.20 - 1.00 K/mcL LAB HEMETOLOGY METHOD 10/11/2025 2:15 PM EST [facility] Eosinophils Absolute 0.23 0.00 - 0.50 K/mcL LAB HEMETOLOGY METHOD 10/11/2025 2:15 PM EST [facility] Basophils Absolute 0.04 0.00 - 0.20 K/mcL LAB HEMETOLOGY METHOD 10/11/2025 2:15 PM EST [facility] Immature Granulocytes Absolute 0.02 0.00 - 0.03 K/mcL LAB HEMETOLOGY METHOD 10/11/2025 2:15 PM EST [facility] Blood Venous blood specimen / Unknown Venipuncture / Unknown 10/11/2025 12:15 PM EST 10/11/2025 12:15 PM EST us Veronica Tobin MATHEMATICS INSTRUCTOR LAB BLOOD ORDERABLES Final Resu lt [facility] [address] [place] [address], * (ABNORMAL) Prothrombin time with INR (10/11/2025 12:15 PM EST) Protime 10.4(L) 10.6 - 13.9 sec LAB COAGULATION METHOD 10/11/2025 2:15 PM EST [facility] INR 0.8 LAB COAGULATION METHOD 10/11/2025 2:15 PM EST [facility] Blood Venous blood specimen / Unknown Venipuncture / Unknown 10/11/2025 12:15 PM EST 10/11/2025 12:15 PM EST Veronica Tobin MATHEMATICS INSTRUCTOR LAB BLOOD ORDERABLES Final Resu lt [facility] [address] [place] [address], * NM Gastric Emptying Study (09/21/2025 9:28 AM EDT) Anatomical Region Laterality Modality Body Nuclear Medicine 09/21/2025 3:31 PM EDT Impressions 09/21/2025 3:32 PM EDT Nondiagnostic exam due to patient vomiting the ingested meal. Telerad JUSTIN ([id number]) -------- FINAL REPORT -------- Dictated By: Elizabeth Mcnally Dictated Date: 09/21/2025 15:31 ET Assigned Physician: Elizabeth Mcnally Reviewed and Electronically Signed By: Elizabeth Mcnally Signed Date: 09/21/2025 15:32 ET Workstation ID: [id number] Transcribed By: Self Edit Transcribed Date: 09/21/2025 15:31 ET Narrative 09/21/2025 3:32 PM EDT HISTORY: Nausea and vomiting. Diabetes. Question disordered gastric emptying. FINDINGS: Radionucleotide gastric emptying study attempted following ingestion of 0.9 mCi of Tc99m sulfur colloid mixed with eggs for solid food evaluation. The patient vomited approximately 45 minutes after ingestion of the medial. The exam was terminated. Procedure Note Elizabeth Mcnally MD - 09/21/2025 HISTORY: Nausea and vomiting. Diabetes. Question disordered gastricemptying. FINDINGS: Radionucleotide gastric emptying study attempted followingingestion of 0.9 mCi of Tc99m sulfur colloid mixed with eggs for solidfood evaluation. The patient vomited approximately 45 minutes after ingestion of themedial. The exam was terminated. IMPRESSION: Nondiagnostic exam due to patient vomiting the ingested meal. Telerad JUSTIN ([id number]) -------- FINAL REPORT -------- Dictated By: Elizabeth Mcnally Dictated Date: 09/21/2025 15:31 ET Assigned Physician: Elizabeth Mcnally Reviewed and Electronically Signed By: Elizabeth Mcnally Signed Date: 09/21/2025 15:32 ET Workstation ID: [id number] Transcribed By: Self Edit Transcribed Date: 09/21/2025 15:31 ET Veronica Tobin NP IMG NM PROCEDURES Final Result * External clinical lab (09/19/2025) Only the most recent of3 resultswithin the time period is included. Provider [facility] LAB BLOOD ORDERABLES Fin al Result * Iron and TIBC (09/15/2025 1:30 PM EDT) Iron 63 50 - 160 mcg/dL LAB CHEMISTRY METHOD 09/15/2025 3:38 PM EDT [facility] TIBC 280 250 - 450 mcg/dL LAB CHEMISTRY METHOD 09/15/2025 3:38 PM EDT [facility] Iron Saturation 23 20 - 50 % LAB CHEMISTRY METHOD 09/15/2025 3:38 PM EDT [facility] Blood Venous blood specimen / Unknown Venipuncture / Unknown 09/15/2025 1:30 PM EDT 09/15/2025 1:30 PM EDT Tomer Allan MD LAB BLOOD ORDERABLES Final Result [facility] [address] [place] [address], [place] [phone] * Smooth muscle antibody IgG (09/15/2025 1:30 PM EDT) Smooth Muscle (F-Actin) IgG Ab 2 <20 UNITS 09/18/2025 2:13 PM EDT [facility] Comment: Interpretation: Negative Test performed at [facility], [address], [place] [address] Melany Gooden MD, PhD - General Sales Manager Blood Venous blood specimen / Unknown Venipuncture / Unknown 09/15/2025 1:30 PM EDT 09/15/2025 1:30 PM EDT Veronica Tobin MATHEMATICS INSTRUCTOR LAB BLOOD ORDERABLES Final Resu lt [facility] [address] [place] [address] * (ABNORMAL) Alkaline phosphatase, isoenzymes (09/15/2025 1:30 PM EDT) Alkaline Phosphatase 142(H) 36 - 130 U/L 09/22/2025 7:39 PM EDT [facility] Comment: Test Performed at: [facility] [address] [place] [address] Placido Austin MD, PhD, KASSIDY Alk Phos Isoenzyme Intestine 4 1 - 24 % 09/22/2025 7:39 PM EDT [facility] Alk Phos Isoenzyme Bone 42 28 - 66 % 09/22/2025 7:39 PM EDT [facility] Alk Phos Isoenzyme Liver 54 25 - 69 % 09/22/2025 7:39 PM EDT [facility] Comment: Increased intestinal alkaline phosphatase can be seen in blood group O and B secretors and after fatty meals. Alk Phos Isoenzyme Placental 0 0 % 09/22/2025 7:39 PM EDT [facility] Comment: Test Performed at: [facility] [address] [place] [id number] Placido Austin MD, PhD, KASSIDY Alk Phos Isoenzyme Macrohepatic TNP 09/22/2025 7:39 PM EDT [facility] Alkaline Phosphatase Isoenzymes Interpretation TNP 09/22/2025 7:39 PM EDT [facility] Blood Venous blood specimen / Unknown Venipuncture / Unknown 09/15/2025 1:30 PM EDT 09/15/2025 1:30 PM EDT Veronica Tobin MATHEMATICS INSTRUCTOR LAB BLOOD ORDERABLES Edited Res ult - Final [facility] [address] [place] [address] * (ABNORMAL) Antimitochondrial antibody (09/15/2025 1:30 PM EDT) Pathologist [facility] Mitochondrial Antibody Quantitative 22.6(H) <=20.0 units LAB CHEMISTRY METHOD 09/20/2025 11:30 AM EDT [facility] Mitochondrial Antibody Qualitative Equivoca l(A) Negative LAB CHEMISTRY METHOD 09/20/2025 11:30 AM EDT [facility] Blood Venous blood specimen / Unknown Venipuncture / Unknown 09/15/2025 1:30 PM EDT 09/15/2025 1:30 PM EDT Veronica Tobin MATHEMATICS INSTRUCTOR LAB BLOOD ORDERABLES Final Resu lt Performing Organization Address [facility] de Phone Number [facility] [address] [place] [address], * Ferritin (09/15/2025 1:30 PM EDT) Pathologist [facility] Ferritin 79 26 - 388 ng/mL LAB CHEMISTRY METHOD 09/15/2025 3:39 PM EDT [facility] Blood Venous blood specimen / Unknown Venipuncture / Unknown 09/15/2025 1:30 PM EDT 09/15/2025 1:30 PM EDT Tomer Allan MD LAB BLOOD ORDERABLES Final Result [facility] [address] [place] [address], * (ABNORMAL) Comprehensive metabolic panel (05/22/2025 11:18 AM EDT) Sodium 141 133 - 145 mmol/L LAB CHEMISTRY METHOD 05/22/2025 2:45 PM EDT [facility] Potassium 4.2 3.5 - 5.5 mmol/L LAB CHEMISTRY METHOD 05/22/2025 2:45 PM EDT [facility] Chloride 106 96 - 110 mmol/L LAB CHEMISTRY METHOD 05/22/2025 2:45 PM EDT [facility] CO2 25 21 - 32 mmol/L LAB [facility]STRY [facility] Anion Gap 10 3 - 11 LAB CHEMISTRY METHOD [facility] Glucose 197(H) 70 - 100 mg/dL LAB CHEMISTRY METHOD [facility]/22[facility] BUN 17 5 - 25 mg/dL LAB CHEMISTRY METHOD [facility] Creatinine 1.47(H) 0.70 - 1.30 mg/dL LAB CHEMISTRY METHOD 05/22/2025 2:45 PM EDT [facility] eGFR 59(L) >=60 mL/min/1. 73m2 LAB CHEMISTRY METHOD 05/22/2025 2:45 PM EDT [facility] Comment:Calculation based on the Chronic Kidney Disease Epidemiology Collaboration (CKD-EPI) equation refit without adjustment for race. BUN/Creatinine Ratio 11.6 LAB CHEMISTRY METHOD 05/22/2025 2:45 PM T [facility] Calcium 8.9 8.5 - 10.5 mg/dL LAB CHEMISTRY METHOD 05/22/2025 2:45 PM EDT [facility] AST (SGOT) 9(L) 10 - 42 unit/L LAB CHEMISTRY METHOD 05/22/2025 2:45 PM EDT [facility] ALT (SGPT) 18 10 - 60 unit/L LAB CHEMISTRY METHOD 05/22/2025 2:45 PM EDT [facility] Alkaline Phosphatase 212(H) 42 - 121 unit/L LAB CHEMISTRY METHOD 05/22/2025 2:45 PM EDT [facility] Total Protein 7.4 6.0 - 8.0 g/dL LAB CHEMISTRY METHOD 05/22/2025 2:45 PM EDT [facility] Albumin 3.8 3.2 - 5.0 g/dL LAB CHEMISTRY METHOD 05/22/2025 2:45 PM EDT [facility] Total Bilirubin 1.3 0.0 - 1.4 mg/dL LAB CHEMISTRY METHOD 05/22/2025 2:45 PM EDT [facility] Blood Venous blood specimen / Unknown Venipuncture / Unknown 05/22/2025 11:18 AM EDT 05/22/2025 1:31 PM EDT Tomer Allan MD LAB BLOOD ORDERABLES Final Result [facility] [address] [place] [address], [place] [phone] * (ABNORMAL) Lipid panel with reflex to direct LDL (03/09/2025 2:19 PM EDT) Cholesterol 157 0 - 200 mg/dL LAB CHEMISTRY METHOD 03/09/2025 3:41 PM EDT [facility] Triglycerides 163(H) 0 - 150 mg/dL LAB CHEMISTRY METHOD 03/09/2025 3:41 PM EDT [facility] HDL 70 >=40 mg/dL LAB CHEMISTRY METHOD 03/09/2025 3:41 PM EDT [facility] LDL Calculated 54 0 - 100 mg/dL LAB CHEMISTRY METHOD 03/09/2025 3:41 PM EDT [facility] VLDL Cholesterol August 32.6 mg/dL LAB CHEMISTRY METHOD 03/09/2025 3:41 PM EDT [facility] Non HDL Chol. (LDL+VLDL) 87 <145 mg/dL LAB CHEMISTRY METHOD 03/09/2025 3:41 PM EDT [facility] Chol/HDL Ratio 2.2 0.0 - 4.4 LAB CHEMISTRY METHOD 03/09/2025 3:41 PM EDT [facility] Blood Venous blood specimen / Unknown Venipuncture / Unknown 03/09/2025 2:19 PM EDT 03/09/2025 2:37 PM EDT us Dank Nguyen MD LAB BLOOD ORDERABLES Final Resul t Performing Organization Address City/[facility]/ZIP Co de Phone Number [facility] [address] [place] [address], [place] [phone] * (ABNORMAL) Hemoglobin A1c (03/09/2025 2:19 PM EDT) [facility] Hemoglobin A1C 12.5(H) <6.5 % LAB CHEMISTRY METHOD 03/09/2025 9:35 PM EDT [facility] Mean Bld Glu Estim. 312 mg/dL LAB CHEMISTRY METHOD 03/09/2025 9:35 PM EDT [facility] Blood Venous blood specimen / Unknown Venipuncture / Unknown 03/09/2025 2:19 PM EDT 03/09/2025 2:40 PM EDT us Dank Nguyen MD LAB BLOOD ORDERABLES Final Resul t Performing Organization Address [facility]/ZIP Co de Phone Number [facility] [address] [place] [address], [place] [phone] * HM Urine Albumin Creatinine Ratio (05/06/2024) HM Urine Albumin Creatinine Ratio Abstracted Historical Provider HEALTH MAINTENANCE Final Result * HIV Screening (05/06/2024) Pathologist [facility] HIV Screening Abstracted Historical Provider MD HEALTH MAINTENANCE Final Result * Hepatitis C Screening (05/06/2024) Pathologist [facility] Hepatitis C Screening Abstracted [facility] Provider MD HEALTH MAINTENANCE Final Result * Depression Screening (04/29/2024) Pathologist [facility] Depression Screening Abstracted [facility] Provider HEALTH MAINTENANCE Final Result from Last 3 Months or Most Recently Relevant to Health Maintenance Additional Health Concerns Active Problems Noted Date Diagnosed Date Autogenerated Problem 09/14/2025 Insurance [facility] [employer] Care Teams 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
--- OUTSIDE RECORDS SUMMARY | 2025-10-11 22:53 | XMS_ITS | Clinical Summary ---
Author Organization [facility] Address [address] [place] [address] Phone Care Team Providers Care Commercial Driver'S License Driver Name Role Phone Kassi Bal Uriel Unavailable Dank Nguyen MD Primary Care Provider [phone] Allergies No known active allergies Medications citalopram [...] 3:20 PM EDT): Patient was admitted to [facility] in 2018 and he required a consent in January 2022, presentation most consistent with cyclic vomiting syndrome, patient was without a primary care physician at his last hospitalization he tells me he has one now in [place], he was asked to obtain a gastric emptying study but I do not believe that this happened -IV fluid resuscitation -IV Ativan -Zofran -Clear liquid diet -KUB pending -Consult GI if felt to be necessary -hot Showers Vomiting with nausea, not intractable 02/01/2022 Assessment & Plan (02/03/2022 8:30 AM EDT): Patient admitted to [facility] in 2018 with very similar clinical picture [...] to touch base with Kassi Bal, collab home health care respiratory therapist. Pt works for most of the day [...] In addition to the medication, our collaborative healthcare facility administrator will be reaching out to you. She [...] doing any non-medication therapy or taking any ngvt-pws-luxnumy medication to treat your anxiety or depression? No Are you currently speaking with a mental health specialist (ex. psychologist, therapist, manager social services)? No Since your last visit have you been: Seen in the ER or hospital ? Please explain where and when: Start vomiting and nausea Do you have any other questions for your doctor you want to ask BEFORE your next visit? No Daytime phone number [phone] Assessment & Plan (12/15/2017 11:51 AM EST): [...] doing any non-medication therapy or taking any yqkc-yyr-yzimybt medication to treat your anxiety or depression? No Are you currently speaking with a mental health specialist (ex. psychologist, therapist, manager social services)? No Since your last visit have you been: Seen in the ER or hospital ? Please explain where and when: ER Do you have any other questions for your doctor you want to ask BEFORE your next visit? No Daytime phone number [phone] Assessment & Plan (11/05/2017 10:09 AM EST): [...] January 25, 2018; however, he did not orange picker the new prescription. Continue tadalafil 10 [...] been able to follow up with a export manager for multiple freckles. Ambulatory referral to [facility] Dermatology provided for a skin check; significance explained. Assessment & Plan (01/26/2018 9:29 AM EST): Has multiple freckles all over his body. Recommended to visit export manager for further evaluation and management, contact number provided. Assessment & Plan (11/05/2017 5:15 AM EST): Has multiples freckles all over the body. Denies history of skin cancer in family. Ambulatory referral to [facility] Dermatology provided. Assessment & Plan (05/06/2017 7:40 [...] prevention of skin cancer. Recommended to visit export manager for further treatment and evaluation; referral provided to [facility] Dermatology. Health care maintenance 05/05/2017 Assessment & [...] Wears contact lenses. States he visited an geological aide in the past for diabetic eye examination. [...] complications of smoking. Ambulatory referral provided to [facility] ( Smoking, Tobacco Cessation). [...] units nightly while he was at the [facility]. Has not followed up with early breastfeeding care specialist, Dr. Mert Dickson, since February 2018. Had [...] current management. Refills provided. Ambulatory referral to [facility] Den Diabetic Retinopathy and [facility] Orthopaedics provided for diabetic eye and foot exam respectively. Advised to call and set up an appointment with [facility]; contact details provided. Assessment & Plan (01/03/2019 3:55 PM EST): Called to discuss upcoming group visit program; no answer Assessment & Plan (09/11/2018 9:50 AM EDT): Takes insulin glargine 30 units nightly, and uses insulin aspart for sliding scale. Follows up with [facility], last saw early breastfeeding care specialist, Dr. Dickson, in February 2018. States he was homeless for about two months, lived in usp, and was not eating properly. He was [...] call and set up an appointment with [facility]. Follow up with me in three months. Assessment & Plan (03/25/2018 7:31 PM EDT): On insulin aspart U-100 and insulin glargine. Follows up with [facility]. Blood work obtained on May [...] diabetic retinopathy for which he visited an geological aide. Continue current management, refills provided at request. [...] Has scheduled follow up appointment with the [facility] endocrine dept on 11/09. He has never consulted with vp of technology. Reviewed and discussed previous HbA1c. Continue current management. Encouraged and appreciated continuous blood glucose monitoring. Advised to follow up with early breastfeeding care specialist on scheduled date. Ambulatory referral to [facility] Podiatry for DM foot care provided; relevance reviewed. Assessment & Plan (08/12/2017 12:17 PM EDT): On Insulin Aspart (NovoLog) sliding scale with meals (typically 10-15 U based on carbs) and Insulin Glargine (Lantus, Basaglar) 30 units at night. HbA1c obtained on May 09, 2017, was 12.7% whereas on July 20, 2017, was 11.3%. Mentions he visited early breastfeeding care specialist, Dr. Dickson on July 20, 2017. During this visit the Insulin Glargine dosage was decreased from 40 units to 30 units. He was advised dietary modification that included restriction of carbohydrates and advised to maintain physical activity. Follows up with frame coverer, Kirsten Faith with significant benefits and is due for a follow up this evening. Reports his morning blood glucose levels on home monitor are in range of 128 to 130 mg/dL. His weight was 151 lbs in May 2017 and is 175 lbs on today's visit. Continue current management. Refills provided. Continue follow up with the frame coverer and early breastfeeding care specialist. Discussed about complications of diabetes. Follow up [...] 3 refills. . Ambulatory referral provided to [facility]; inform me if does not receive call for scheduling an appointment. Ambulatory referral provided to [facility] Nutrition Services for more targeted recommendation on [...] with uncontrolled diabetes. Update me on Patient [place] about recommendations from frame coverer and clinical rehab specialist. Resolved Problems Problem Noted Date Diagnosed Date Resolved Date Homeless 09/09/2018 02/17/2019 Assessment & Plan (09/11/2018 9:53 AM EDT): He was homeless for two months, was living in a usp, and now has been living in a [...] into a new apt. Ambulatory referral to [facility] provided for housing and financial assistance. Diarrhea [...] referral for it. Ambulatory referral provided to [facility] Physical Therapy. Assessment & Plan (01/26/2018 9:27 [...] any other underlying cause. Ambulatory referral to [facility] Physical Therapy provided for further evaluation and management. Follow up with me in 6 months or sooner if needed. Intractable cyclical vomiting with nausea 01/25/2018 02/17/2019 Assessment & Plan (01/26/2018 9:30 AM EST): Mentions he was admitted in the ED at the [facility] on December 22, 2017 for cyclical vomiting [...] HEMOGLOBIN A1C 9.6(H) 4.3 - 5.8 % [facility] Blood 07/07/2022 4:28 AM EDT 07/07/2022 4:48 AM EDT Saad Nye MD LAB BLOOD BKR ORDERABLES F inal Result [facility] [address] [place] [address] * (ABNORMAL) Lipid panel (02/17/2019 7:22 PM EDT) HDL 71 35 - 100 mg/dL [facility] CHOLESTEROL 146 <200 mg/dL [facility] TRIGLYCERIDES 35(L) 40 - 150 mg/dL [facility] LDL 68 50 - 129 mg/dL [facility] CARDIAC RISK RATIO 2.1 0.0 - 5.0 [facility] NON-HDL CHOLESTEROL 75 mg/dL [facility] Comment:NCEP ATP III guideli bianka suggest a non-HDL cholesterol goal 30 mg/dl higher than the patient-specific LDL goal. 02/17/2019 7:22 PM EDT 02/17/2019 7:34 PM EDT Americo Garcia MD LAB BLOOD BKR ORDERABLES Final Result Performing Organization Address [facility] Co de Phone Number [address] [address] * (ABNORMAL) Microalbumin/creatinine ratio, random urine (09/09/2018 5:53 PM EDT) URINE MICROALBUMIN 2.5(H) 0.0 - 2.0 mg/dL [facility] URINE CREATININE 307 mg/dL [facility] MICROALB/CRE RATIO 8.1 <30.0 mg/g Cre [facility] Urine 09/09/2018 5:53 PM EDT 09/09/2018 6:16 PM EDT Americo Garcia MD LAB URINE ORDERABLES Final Resu lt [address] [id number] from Last 3 Months or Most Recently Relevant to Health Maintenance [place] EPO [facility]PO [place] EPO [facility] POS EPO [place] [facility] O POS EPO [place] EPO Advance Directives For more information, please contact: [phone] (9AM - 5PM [facility], Thursday-Thursday) * Full Code (Latest Code [...] 11:55 PM 03/09/2018 5:42 PM Care Teams Commercial Driver'S License Driver Relationship Specialty Start Date End Date Dank Nguyen MD [address] [place] [id number] PCP - General Internal Medicine 07/07/22 Kassi Bla [address] [place] [phone] (work) [email or web address] 01/20/18 Additional Source Comments The information contained in this document represents components of the legal health record. It is not the complete legal health record.[facility]
--- OUTSIDE RECORDS SUMMARY | 2025-10-11 22:53 | XMS_ITS | Encounter Summary ---
Author Organization [facility] Address [address] [place] [address] Care Team Providers Care Frame Catcher Name Role Phone Dank Nguyen MD Primary Care Provider [phone] Encounter Details Date Type Department Care Team (Late Contact Info) Description 09/22/2025 Results Follow-Up Gastroenterology - [place] [address] [facility] [address] [facility] [address] [place] [phone] Veronica Tobin, BEBE [address] [facility] [address] [place] [address] Social History Tobacco Use Types Packs/Day Years Used Date Smoking Tobacco: Former Cigarettes 0.3 Q uit: 11/23/2004 Smokeless Tobacco: Never Alcohol Use Standard Drinks/Week Comments Yes 0 (1 standard drink = 0.6 oz pur e alcohol) Sex and Gender Information Value Date Recorded Sex Assigned at Male 02/24/2025 3:31 PM EDT Legal Sex Male 7:11 PM EST Gender Identity Male 02/24/2025 3:31 PM EDT Sexual Orientation Straight 02/24/2025 3: 31 PM EDT documented as of this encounter Plan of Treatment Upcoming Encounters Date Type Department Care Team (Late Contact Info) Description 10/13/2025 10:00 AM EST Hospital Encounter [facility] [address] [place] [phone] Felipe Koch DO [address] [facility] [address] [place] [address] 11/21/2025 9:45 AM EST Office Visit Pulmonology - [place] [address] [facility] [address] [place] [address] Marlene Jiménez MD [address] [place] [address] 11/22/2025 1:00 PM EST Office Visit [facility] - [place] [address] [facility] [address] [place] [phone] Nazia Doherty MD [address] [place] [address] 12/01/2025 9:50 AM EST Office Visit [facility] - [address] [place] [phone] Saad Scott MD [address] [place] [address] [facility] [address] [place] [phone] 02/01/2026 10:30 AM EDT Office Visit Internal Medicine - [place] [address] [facility] [address] [place] [phone] Keith Fernandez NP 175 [facility] [address] [place] [address] documented as of this encounter Goals Goal Patient Goal Type Associated Problems Recent Progress Patient-Stated? Author Autogenera juancho Goal Care Plan Autogenerated Problem No Helen Varma documented as of this encounter Visit Diagnoses Not on filedocumented in this encounter Additional Health Concerns Active Problems Noted Date Diagnosed Date Autogenerated Problem 09/14/2025 documented as of this encounter Care Teams Frame Catcher Relationship Specialty Start Date End Date Dank Nguyen MD 175 [facility] [address] [place] [address] PCP - General Internal Medicine 04/23/21 documented as of this encounter
== END 2025-10-11 11:44 | disposition home or self-care (01) ==
LOC: HO.HKASLDS 11:43
PROVIDERS: PCP Internal Medicine; Visit Provider Internal Medicine Nephrology
DX: E11.22 Type 2 diabetes mellitus with diabetic chronic kidney disease (principal); I12.9 Hypertensive chronic kidney disease with stage 1 through stage 4 chronic kidney disease, or unspecified chronic kidney disease; N18.30 Chronic kidney disease, stage 3 unspecified
CPT/HCPCS: 36415; 80051; 82565; 82575; 84520

== ENCOUNTER 2025-10-17 10:20 | Outpatient (AMB) | payer OTHER, SELFPAY ==
[2025-10-17 10:28] VITALS: BP 130/82; PULSE 93; O2SAT 95; BMI 23.4
--- NOTE | 2025-10-17 10:28 | HO.NEPHOV ---
Vital Signs 10/17/25 10:28 Height 5 ft 8 in Weight 154 lb 2 oz BMI 23.4 BP 130/82 Blood Pressure Location Lt brachial Position Sitting Pulse 93 Pulse Source Pulse Oximeter Pulse Oximetry (%) 95 Oxygen Delivery Method Room Air Intake Visit Reasons: 1mon f/u w/labs-LVM Animal Physiology Teacher Required: No Accompanied by: Self / Same As Patient Allergies metformin Allergy (Verified 10/17/25 10:28) Diarrhea HPI Comments Details: I had the pleasure of seeing Darren in follow up for CKD and hypertension. He has a long H/O uncontrolled DM. He is on insulin. He is on ARB as well as Amlodipine for hypertension. He is not on GLP1 or SGLT2 i. He has H/O retinopathy needing laser treatment for his right eye. He denied CAD, Carotid stenosis, CVA, CHF or PAD. He denies smoking but smokes marijuana. He has H/O difficulty swallowing, gastric emptying but had intermittent bouts of vomiting. He tries to avoid NSAID's as much as he can. He is not sure whether he has proteinuria. His last serum creatinine is 1.28 now [facility] Medical History (Updated 10/17/25 @ 10:42 by Sony Hawk MD) Urolithiasis Tendonitis of knee, right Tachycardia Right knee pain Osteoarthritis of right knee Migraine with aura and without status migrainosus, not intractable Major depressive disorder in partial remission Iron deficiency anemia due to chronic blood loss Insomnia Hypertension H/O esophageal reflux Erectile dysfunction Elevated alkaline phosphatase level DM (diabetes mellitus), type 2 with peripheral vascular complications COVID-19 virus infection Surgical History History of endoscopy Family History Mother Cancer Maternal Grandfather Diabetes mellitus Social History Alcohol intake: never Patient Tobacco Use Status: Never used Tobacco Substance Use Type: Marijuana Review of Systems Const All systems reviewed & are unremarkable except as noted in HPI and below Physical Exam Vital Signs: Last Vital Signs Pulse 93 10/17/25 10:28 BP 130/82 10/17/25 10:28 Pulse Ox 95 10/17/25 10:28 Oxygen Delivery Method Room Air 10/17/25 10:28 BMI result Body Mass Index 23.4 Const General: comfortable and no acute distress Orientation/consciousness: patient oriented x3 HEENT Head: Yes normocephalic Mouth: Normal oral and palatal mucosa present Eyes EOM: EOMs intact bilaterally Neck Neck: Yes supple Resp Auscultation: clear to auscultation bilaterally Cardio Jugular venous distension: no JVD Rate: regular rate GI Palpation (GI): Soft to palpation Auscultation: normal bowel sounds General: Yes no CVA tenderness Back/Spine/Pelvis Back: no CVA tenderness Skin General skin exam: no rashes or lesions noted Neuro General: patient oriented x3 and moves all extremities Extrem General: Yes no pedal edema Results Reviewed Nephrology Results: Hgb, (14.0-18.0) 13.1 g/dl L 09/19/25 WBC, (4.8-10.8) 8.0 X10*3/uL 09/19/25 Plt Count, (160-400) 255 X10*3/uL 09/19/25 Sodium, (135-145) 141 mmol/L 10/11/25 Potassium, (3.3-5.1) 4.1 mmol/L 10/11/25 Chloride, (96-108) 104 mmol/L 10/11/25 Carbon Dioxide, (22-29) 27 mmol/L 10/11/25 BUN, (9-16) 19 mg/dL H 10/11/25 Creatinine, (0.5-1.4) 1.28 mg/dL 10/11/25 Calcium, (8.4-10.2) 9.5 mg/dL 09/19/25 Phosphorus, (2.7-4.5) 3.5 mg/dL 09/19/25 Urine Creatinine 258.36 mg/dL 09/19/25 Protein/Creatinin Ratio, (<0.2) 0.59 H 09/19/25 Renal US 09/15/25 Assessment & Plan Assessment & Plan (1) CKD stage 3 due to type 2 diabetes mellitus: Code(s): E11.22 - Type 2 diabetes mellitus with diabetic chronic kidney disease; N18.30 - Chronic kidney disease, stage 3 unspecified Category: Medical (2) Hypertension: Code(s): I10 - Essential (primary) hypertension Category: Medical Qualifiers: Hypertension type: primary hypertension Qualified Code(s): I10 - Essential (primary) hypertension (3) Diabetic nephropathy: Code(s): E11.21 - Type 2 diabetes mellitus with diabetic nephropathy Category: Medical Qualifiers: Diabetes mellitus type: type 2 Qualified Code(s): E11.21 - Type 2 diabetes mellitus with diabetic nephropathy Plan Darren has CKD likely from diabetic renal disease. He is on ARB and SGLT2 i. He needs to maintain good hydration and avoid NSAID's. I may increase his Jardiance to 25 mg daily with time . F/U labs ordered as well. Answered all questions and F/U was given Orders: Orders Creatinine 6 Months E11.21 - Type 2 diabetes mellitus with diabetic nephropathy, E11.22 - Type 2 diabetes mellitus with diabetic chronic kidney disease, I10 - Essential (primary) hypertension, N18.30 - Chronic kidney disease, stage 3 unspecified Electrolytes 6 Months E11.21 - Type 2 diabetes mellitus with diabetic nephropathy, E11.22 - Type 2 diabetes mellitus with diabetic chronic kidney disease, I10 - Essential (primary) hypertension, N18.30 - Chronic kidney disease, stage 3 unspecified Protein Creatinine Ratio, Ur 6 Months E11.21 - Type 2 diabetes mellitus with diabetic nephropathy, E11.22 - Type 2 diabetes mellitus with diabetic chronic kidney disease, I10 - Essential (primary) hypertension, N18.30 - Chronic kidney disease, stage 3 unspecified Blood Urea Nitrogen 6 Months E11.21 - Type 2 diabetes mellitus with diabetic nephropathy, E11.22 - Type 2 diabetes mellitus with diabetic chronic kidney disease, I10 - Essential (primary) hypertension, N18.30 - Chronic kidney disease, stage 3 unspecified Hemoglobin A1c 6 Months E11.21 - Type 2 diabetes mellitus with diabetic nephropathy, E11.22 - Type 2 diabetes mellitus with diabetic chronic kidney disease, I10 - Essential (primary) hypertension, N18.30 - Chronic kidney disease, stage 3 unspecified Coding Level of Care Code Est Pt Level 4 (99474) Diagnoses CKD stage 3 due to type 2 diabetes mellitus E11.22; N18.30 Primary hypertension I10 Hypertension type: primary hypertension Diabetic nephropathy associated with type 2 diabetes mellitus E11.21 Diabetes mellitus type: type 2
--- OUTSIDE RECORDS SUMMARY | 2025-10-17 12:46 | XMS_ITS | Clinical Summary ---
Author Organization [facility] Address [address] [place] [address] Care Team Providers Care Shagger Name Role Phone Dank Nguyen MD Primary [...] age to complete this topic Care Teams Shagger Relationship Specialty Start Date End Date Dank Nguyen MD PCP - General Internal Medicine 05/13/23
--- OUTSIDE RECORDS SUMMARY | 2025-10-17 12:46 | XMS_ITS | Encounter Summary ---
Author Organization [facility] Address [address] [place] [address] Phone Care Team Providers Care Beading Installer Name Role Phone Kassi Bal Unavailable Pcp, Unknown Primary Care Provider Dank Potter MD Primary Care Provider [phone] Encounter Details Date Type Department Care Team (Late st Contact Info) Description 02/01/2022 Procedure Pass [facility], Ct Scan - [facility] [address] [place] [address] Social History Tobacco Use Types Packs/Day Years [...] 5:46 AM EST Olga Brown RN * [place] Suicide Severity Rating Scale (Screener/Recent Self-Report) Question [...] documented as of this encounter Care Teams Beading Installer Relationship Specialty Start Date End Date Pcp, Unknown PCP - General 02/01/22 07/06/22 Dank Nguyen MD [address] [place] [address] PCP - General Internal Medicine 07/07/22 Kassi Bal [address] [place] [phone] [email or web address] Collaborative Care Fire Equipment Inspector 01/20/18 documented as of this encounter Additional Source Comments The information contained in this document represents components of the legal health record. It is not the complete legal health record.[facility]
--- OUTSIDE RECORDS SUMMARY | 2025-10-17 12:46 | XMS_ITS | Clinical Summary ---
Author Organization [facility] Address [address] [place] [address] Phone Care Team Providers Care Senior Technical Manager Name Role Phone Rebecca Parker Primary Care Provider [phone] Allergies Active Allergy Reactions Criticality Noted Date [...] (one) time each day if needed 07/29/20 Active topiramate (TOPAMAX) 50 MG tablet Take 25 mg by mouth 1 (one) time each day 08/10/20 Active nortriptyline (PAMELOR) 25 MG capsule Take 25 mg by mouth every night 08/10/20 Active Lantus SoloStar 100 UNIT/ML injection Inject under the skin Active insulin aspart (NovoLOG FLEXPEN) 100 UNIT/ML injection INJECT SUBCUTANEOUSLY THREE TIMES A DAY. USE PER SLIDING SCALE. <100: 0 units, 101-150: 6 units, 151-200: 8 units, 201-250: 10 units, 251-300: 12 units, 301-350: 14 units, 351-400: 16 units, >400: call me 01/18/20 Active Active Problems Problem Noted Date Diagnosed Date Stage 3a chronic kidney disease 10/25/2024 Injury of kidney 08/24/2024 Diabetic ketoacidosis 08/24/2024 Diabetes mellitus 08/24/2024 Stage 3b chronic kidney disease 08/24/2024 Type 1 diabetes mellitus wit h diabetic chronic kidney disease 08/24/2024 Intractable nausea and vomiting 02/01/2022 Other specified enthesopathy of right lower limb, excluding foot 04/29/2021 Pain of right knee region 04/29/2021 Bilateral moderate nonprolif erative retinopathy due to diabetes mellitus type 1 01/17/2018 Tobacco user 12/22/2017 Erectile dysfunction 08/11/2017 Overview (08/24/2024): Last Assessment & Plan: On tadalafil 10 mg daily as needed. Continue current management; refills provided. Nicotine dependence, cigarettes, uncomplicated 0 05/05/2017 Urolithiasis 01/03/2011 Overview (07/11/2025): [place] Hypertensive disorder [...] Office Visit [facility] [address] [address] Fabian Haider MD [address] [address] Health Maintenance Due Date Last Done Comments [...] Hemoglobin A1C 8.3(H) 4.8 - 5.9 % [facility] 03/08/2024 03/09/2024 8:3 4 AM EDT Narrative [facility] - 03/09/2024 Unless otherwise specified, test(s) performed at: [facility], [address] [place] [address] BLASTING CONTRACT MINER: Joe Guerrero M.D. For any questions, please call customer service at FREQUENCY:MONTHLY Resulting Agency Comment Specimen source: Blood us Micha Jiménez MD LAB BLOOD BANK TEST ORDERABLES F inal Result [facility] See order comments or contact performing lab [facility], [place] from Last 3 Months or Most Recently Relevant to Health Maintenance Insurance [employer] Commercial Medicaid [place] [facility] Medicaid Care Teams Senior Technical Manager Relationship Specialty Start Date End Date Rebecca Parker [address] [place] [phone] PCP - General Nurse Practitioner 08/10/24
--- OUTSIDE RECORDS SUMMARY | 2025-10-17 12:46 | XMS_ITS | Encounter Summary ---
Author Organization [facility] Address [address] [facility] [address] [place] [address] Phone Care Team Providers Care Cook Helper Pastry Name Role Phone Americo Garcia MD Primary Care Provider [phone] Americo Garcia MD Unavailable [phone] Kassi Bal Unavailable Pcp, Unknown Primary Care Provider Unavailabl e Dank Nguyen MD Primary Care Provider [phone] Encounter Details Date Type Department Care Team (Late st Contact Info) Description 08/19/2017 Telephone [facility] [address] [place] [address] Americo Garcia MD [address] [place] [address] [email or web address] Social History Tobacco Use [...] on filedocumented in this encounter Care Teams Cook Helper Pastry Relationship Specialty Start Date End Date Americo Garcia MD [address] [place] [address] [email or web address] PCP - General Internal Medicine 05/05/17 12/15/21 Pcp, Unknown PCP - General 02/01/22 07/06/22 Dank Nguyen MD [address] [place] [address] 200 [place] [address] PCP - General Internal Medicine 07/07/22 Americo Garcia MD [address] [place] [address] Ave. KATHIA [place] [address] [email or web address] Partners Attributed Provider 05/24/17 03/02/21 Kassi Bal [address] [place] [address] [place] [phone] [email or web address] Fashion Model 01/20/18 documented as of this encounter Additional Source Comments The information contained in this document represents components of the legal health record. It is not the complete legal health record.[facility]
--- OUTSIDE RECORDS SUMMARY | 2025-10-17 12:46 | XMS_ITS | Encounter Summary ---
Author Organization [facility] Address [address] [place] [address] Care Team Providers Care Patient Navigator Name Role Phone Dank Nguyen MD Primary Care Provider [phone] Reason for Visit * Reason Onset Date Comments Special Procedure 10/17/2025 Encounter Details Date Type Department Care Team ([facility] st Contact Info) Description 10/17/2025 Telephone Gastroenterology - [place] 175 [facility] 175 [facility] 200 [place] [phone] Karina Johnson MD [address] [facility] [address] [place] [address] Social History Tobacco Use Types Packs/Day Years [...] PM EDT documented as of this encounter Progress Notes * Ant Dumont - 10/17/2025 12:39 PM EST 1st attempt to schedule an appointment patient left message to call back EGD - ANY * Brianna Li - 10/17/2025 12:30 PM EST Patient called to reschedule his procedure he canceled last week on 10/[address] Koch documented in this encounter Plan of Treatment Upcoming Encounters Date Type Department Care Team (Late st Contact Info) Description 11/02/2025 2:00 PM EST Office Visit [facility] Hematology Oncology [address] [place] [phone] Tomer Allan MD [address] [place] [phone] 11/21/2025 9:45 AM EST Office Visit Pulmonology - [place] 175 [facility] 200 [place] [phone] Marlene Jiménez MD 230 [place] [phone] 11/22/2025 1:00 PM EST Office Visit [facility] [place] 175 [facility] 150 [place] [phone] Nazia Doherty MD 175 [place], [place] [phone] 12/01/2025 9:50 AM EST Office Visit [facility] - [facility] [address] [place] [phone] Saad Scott MD [address] [place] [address] [address] [place] [phone] 02/01/2026 10:30 AM EDT Office Visit Internal Medicine - [place] 175 [facility] 200 [place] [phone] Keith Fernandez NP 175 [facility] 200 [place] [address] documented as of this encounter Visit Diagnoses Not on filedocumented in this encounter Care Teams Patient Navigator Relationship Specialty Start Date End Date Dank Nguyen MD [address] [place] [address] PCP - General Internal Medicine 04/23/21 documented as of this encounter
--- OUTSIDE RECORDS SUMMARY | 2025-10-17 12:46 | XMS_ITS | Clinical Summary ---
Author Organization [facility] Address [address] [facility] [address] [place] [address] Phone Care Team Providers Care Computer Operations Analyst Name Role Phone Kassi Bal Uriel Unavailable Dank Nguyen MD Primary Care Provider [phone] Allergies No known active allergies Medications citalopram [...] 3:20 PM EDT): Patient was admitted to [facility] in 2018 and he required a consent in January 2022, presentation most consistent with cyclic vomiting syndrome, patient was without a primary care physician at his last hospitalization he tells me he has one now in [place], he was asked to obtain a gastric emptying study but I do not believe that this happened -IV fluid resuscitation -IV Ativan -Zofran -Clear liquid diet -KUB pending -Consult GI if felt to be necessary -hot Showers Vomiting with nausea, not intractable 02/01/2022 Assessment & Plan (02/03/2022 8:30 AM EDT): Patient admitted to [facility] in 2018 with very similar clinical picture [...] to touch base with Kassi Bal, collab animal care worker. Pt works for most of the day [...] In addition to the medication, our collaborative personal care home administrator will be reaching out to you. [...] doing any non-medication therapy or taking any rnbl-wui-[id number] medication to treat your anxiety or depression? [...] your next visit? No Daytime phone number [phone] Assessment & Plan (12/15/2017 11:51 AM EST): eVisit Summary Patient: Darren Yuen ( ) Clinician: Dr. Amerioc Garcia Questionnaire: Anxiety/Depression (Primary Care) Completed by [...] doing any non-medication therapy or taking any fgnv-nus-jilcgtm medication to treat your anxiety or depression? [...] your next visit? No Daytime phone number [phone] Assessment & Plan (11/05/2017 10:09 AM EST): [...] 2018; however, he did not pick up attendant the new prescription. Continue tadalafil 10 mg [...] been able to follow up with a aluminum siding installer for multiple freckles. Ambulatory referral to [facility] Dermatology provided for a skin check; significance explained. Assessment & Plan (01/26/2018 9:29 AM EST): Has multiple freckles all over his body. Recommended to visit aluminum siding installer for further evaluation and management, contact number provided. Assessment & Plan (11/05/2017 5:15 AM EST): Has multiples freckles all over the body. Denies history of skin cancer in family. Ambulatory referral to [facility] Dermatology provided. Assessment & Plan (05/06/2017 7:40 [...] prevention of skin cancer. Recommended to visit aluminum siding installer for further treatment and evaluation; referral provided to [facility] Dermatology. Health care maintenance 05/05/2017 Assessment & [...] Wears contact lenses. States he visited an housecleaner in the past for diabetic eye examination. [...] complications of smoking. Ambulatory referral provided to [facility] ( Smoking, Tobacco Cessation). [...] units nightly while he was at the [facility]. Has not followed up with float tender, Dr. Mert Dickson, since February 2018. Had [...] current management. Refills provided. Ambulatory referral to [facility] Den Diabetic Retinopathy and [facility] Orthopaedics provided for diabetic eye and foot exam respectively. Advised to call and set up an appointment with [facility] Diabetes Center; contact details provided. Assessment & Plan (01/03/2019 3:55 PM EST): Called to discuss upcoming group visit program; no answer Assessment & Plan (09/11/2018 9:50 AM EDT): Takes insulin glargine 30 units nightly, and uses insulin aspart for sliding scale. Follows up with [facility] Diabetes Center, last saw float tender, Dr. Dickson, in February 2018. States he was homeless for about two months, lived in [place], and was not eating properly. He was [...] call and set up an appointment with [facility] Diabetes Center. Follow up with me in three months. Assessment & Plan (03/25/2018 7:31 PM EDT): On insulin aspart U-100 and insulin glargine. Follows up with [facility] Diabetes Center. Blood work obtained on May [...] diabetic retinopathy for which he visited an housecleaner. Continue current management, refills provided at request. [...] Has scheduled follow up appointment with the [facility] endocrine dept on 11/09. He has never consulted with robotic welder. Reviewed and discussed previous HbA1c. Continue current management. Encouraged and appreciated continuous blood glucose monitoring. Advised to follow up with float tender on scheduled date. Ambulatory referral to [facility] Podiatry for DM foot care provided; relevance reviewed. Assessment & Plan (08/12/2017 12:17 PM EDT): On Insulin Aspart (NovoLog) sliding scale with meals (typically 10-15 U based on carbs) and Insulin Glargine (Lantus, Basaglar) 30 units at night. HbA1c obtained on May 09, 2017, was 12.7% whereas on July 20, 2017, was 11.3%. Mentions he visited float tender, Dr. Dickson on July 20, 2017. During this visit the Insulin Glargine dosage was decreased from 40 units to 30 units. He was advised dietary modification that included restriction of carbohydrates and advised to maintain physical activity. Follows up with it support technician, Kirsten Faith with significant benefits and is due for a follow up this evening. Reports his morning blood glucose levels on home monitor are in range of 128 to 130 mg/dL. His weight was 151 lbs in May 2017 and is 175 lbs on today's visit. Continue current management. Refills provided. Continue follow up with the it support technician and float tender. Discussed about complications of diabetes. Follow up [...] to his job, amenable for consultation with information technology specialist. Obtain GAD65 antibody, C-peptide for evaluation of diabetes type. Obtain microalbumin/creatinine ratio, random urine and HbA1c level. Renewed prescription for Lantus insulin and NovoLog insulin for 90 days with 3 refills. . Ambulatory referral provided to [facility] Diabetes Center; inform me if does not receive call for scheduling an appointment. Ambulatory referral provided to [facility] Nutrition Services for more targeted recommendation on [...] with uncontrolled diabetes. Update me on Patient [place] about recommendations from it support technician and docketing specialist. Resolved Problems Problem Noted Date Diagnosed Date Resolved Date Homeless 09/09/2018 02/17/2019 Assessment & Plan (09/11/2018 9:53 AM EDT): He was homeless for two months, was living in a [facility], and now has been living in a [...] into a new apt. Ambulatory referral to [facility] provided for housing and financial assistance. Diarrhea [...] referral for it. Ambulatory referral provided to [facility] Physical Therapy. Assessment & Plan (01/26/2018 9:27 [...] any other underlying cause. Ambulatory referral to [facility] Physical Therapy provided for further evaluation and [...] HEMOGLOBIN A1C 9.6(H) 4.3 - 5.8 % [facility] Blood 07/07/2022 4:28 AM EDT 07/07/2022 4:48 AM EDT Saad Nye MD LAB BLOOD BKR ORDERABLES F inal Result [facility] [address] [place] [address] * (ABNORMAL) Lipid panel (02/17/2019 7:22 PM EDT) HDL 71 35 - 100 mg/dL [facility] CHOLESTEROL 146 <200 mg/dL [facility] TRIGLYCERIDES 35(L) 40 - 150 mg/dL [facility] LDL 68 50 - 129 mg/dL [facility] CARDIAC RISK RATIO 2.1 0.0 - 5.0 [facility] NON-HDL CHOLESTEROL 75 mg/dL [facility] Comment:NCEP ATP III guideli bianka suggest a non-HDL cholesterol goal 30 mg/dl higher than the patient-specific LDL goal. 02/17/2019 7:22 PM EDT 02/17/2019 7:34 PM EDT Americo Garcia MD LAB BLOOD BKR ORDERABLES Final Result Performing Organization Address [facility] Co de Phone Number [address] [address] * (ABNORMAL) Microalbumin/creatinine ratio, random urine (09/09/2018 5:53 PM EDT) URINE MICROALBUMIN 2.5(H) 0.0 - 2.0 mg/dL [facility] URINE CREATININE 307 mg/dL [facility] MICROALB/CRE RATIO 8.1 <30.0 mg/g Cre [facility] Urine 09/09/2018 5:53 PM EDT 09/09/2018 6:16 PM EDT Americo Garcia MD LAB URINE ORDERABLES Final Resu lt [address] [address] from Last 3 Months or Most Recently Relevant to Health Maintenance [place] H[place] POS EPO [facility] HMO POS EPO [place] T[place] O POS EPO [facility] O POS E[place] [facility] AETNA O POS EPO [place] Advance Directives For more information, please contact: [phone] (9AM - 5PM [facility], Thursday-Thursday) * Full Code (Latest Code [...] 11:55 PM 03/09/2018 5:42 PM Care Teams Computer Operations Analyst Relationship Specialty Start Date End Date Dank Nguyen MD [address] [place] [address] PCP - General Internal Medicine 07/07/22 Kassi Bal [address] [place] [phone] (work) [email or web address] 01/20/18 Additional Source Comments The information contained in this document represents components of the legal health record. It is not the complete legal health record.[facility]
--- OUTSIDE RECORDS SUMMARY | 2025-10-17 12:46 | XMS_ITS | Encounter Summary ---
Author Organization [facility] Address [address] [place] [address] Care Team Providers Care Malthouse Laborer Name Role Phone Dank Nguyen MD Primary Care Provider [phone] Encounter Details Date Type Department Care Team (Late Contact Info) Description 10/11/2025 Results Follow-Up Gastroenterology - [address] [phone] Veronica Tobin NP [address] [address] Social History Tobacco Use Types Packs/Day Years [...] Department Care Team (Late Contact Info) Description 11/02/2025 2:00 PM EST Office Visit [facility] Hematology Oncology [address] [place] [address] Tomer Allan MD [address] [place] [address] 11/21/2025 9:45 AM EST Office Visit Pulmonology - [place] 175 [facility] 200 [place] [address] Marlene Jiménez MD 230 [place] [address] 11/22/2025 1:00 PM EST Office Visit [facility] [place] - [place] 175 [facility] 150 [place] [phone] Nazia Doherty MD 175 [place] [address] 12/01/2025 9:50 AM EST Office Visit [facility] - [address] [place] [phone] Saad Scott MD [address] [place] [address] Dr [address]vin [address] [place] [phone] 02/01/2026 10:30 AM EDT Office Visit Internal Medicine - [place] 175 [facility] 200 [place] [phone] Keith Fernandez NP 175 [facility] 200 [place] [address] documented as of this encounter Visit Diagnoses Not on filedocumented in this encounter Care Teams Malthouse Laborer Relationship Specialty Start Date End Date Dank Nguyen MD [address] [address] PCP - General Internal Medicine 04/23/21 documented as of this encounter
--- OUTSIDE RECORDS SUMMARY | 2025-10-17 12:46 | XMS_ITS | Encounter Summary ---
Author Organization [facility] Address [address] [place] [address] Care Team Providers Care Steam Fitter Helper Name Role Phone Dank Nguyen MD Primary Care Provider [phone] Encounter Details Date Type Department Care Team (Late Contact Info) Description 09/22/2025 Results Follow-Up Gastroenterology - [place] 175 [facility] 175 [facility] 200 [place] [phone] Veronica Tobin, BEBE 299 [facility] 419 [place] [address] Social History Tobacco Use Types Packs/Day Years [...] Description 11/02/2025 2:00 PM EST Office Visit [facility] Hematology Oncology [address] [place] [address] Tomer Allan MD [address] [place] [address] 11/21/2025 9:45 AM EST Office Visit Pulmonology - [place] 175 [facility] 200 [place] [address] Marlene Jiménez MD 230 [place] [phone] 11/22/2025 1:00 PM EST Office Visit [facility] - [place] 175 [facility] 150 [place] [address] Nazia Doherty MD 175 [place] [address] 12/01/2025 9:50 AM EST Office Visit [facility] - [address] [place] [phone] Saad Scott MD [address] [place] [address] Dr Olvin [address] [place] [phone] 02/01/2026 10:30 AM EDT Office Visit Internal Medicine - [place] 175 [facility] 200 [place] [phone] Keith Fernandez NP 175 [facility] 200 [place] [address] documented as of this encounter Visit Diagnoses Not on filedocumented in this encounter Care Teams Steam Fitter Helper Relationship Specialty Start Date End Date Dank Nguyen MD 175 [facility] 200 [place] [address] PCP - General Internal Medicine 04/23/21 documented as of this encounter
--- OUTSIDE RECORDS SUMMARY | 2025-10-17 12:46 | XMS_ITS | Clinical Summary ---
Author Organization [facility] Address [address] [place] [address] Care Team Providers Care Firearms Assembly Supervisor Name Role Phone Unavailable Primary Care Provider [...] patient's age to complete this topic Insurance [facility]
--- OUTSIDE RECORDS SUMMARY | 2025-10-17 12:46 | XMS_ITS | Clinical Summary ---
Author Organization 175 [facility] Address [address] [place] [address] Phone Care Team Providers Care Bike Shop Manager Name Role Phone Dank Nguyen MD Primary Care Provider [phone] Allergies Active Allergy Reactions Criticality Noted Date Comments Metformin Diarrhea 09/02/2024 Medications blood sugar diagnostic (FreeStyle Lite Strips) test strip To check FSG 3 times daily 08/09/20 24 Active irbesartan (AVAPRO) 150 mg tablet Take 1 Tablet by mouth daily for 360 days. 08/09/20 24 Active metoprolol succinate (Kapspargo Sprinkle) 100 mg capsule,sprinkle, ER 24hr Take 1 Capsule by mouth daily. 08/09/20 24 Active amLODIPine (NORVASC) 10 mg tablet Take 1 Tablet by mouth daily. 08/09/20 24 Active busPIRone (BUSPAR) 5 mg tablet Take 1 Tablet by mouth 3 times daily as needed (anxiety) for up to 360 days. 08/09/20 24 Active tadalafiL (CIALIS) 20 mg tablet TAKE 1 TABLET BY MOUTH NEEDED FOR ERECTILE DYSFUNCTION. 30 MINUTES PRIOR TO SEXUAL ACTIVITY 07/29/20 24 Active ferrous sulfate 325 mg (65 mg iron) EC tablet 05/20/20 24 Active aluminum-magnesiu m hydroxide-simethi cone (MAALOX) 200-200-20 mg/5 mL suspension Take 15 mL by mouth 4 times daily as needed (gastric ulcers). 05/20/20 24 Active levalbuterol (XOPENEX HFA) 45 mcg/actuation inhaler [...] HFA) 90 mcg/actuation inhalerIndication s:COPD with asthma (CMS/HCC V24, CMS/HCC V28) Inhale 2 puffs by [...] 025 Active metoclopramide (REGLAN) 5 mg tablet TAKE 1 TABLET BY MOUTH 4 TIMES A DAY. 240 tablet 09/14/20 Active galcanezumab-gnlm (EMGALITY) 120 mg/mL injection penIndications:Ch ronic migraine with aura without status migrainosus, not intractable Inject 1 mL (120 mg total) under the skin every 28 (twenty-eight) days. 3 each 09/18/20 25 Active galcanezumab-gnlm (EMGALITY) 120 mg/mL injection penIndications:Ch ronic migraine with aura without status migrainosus, not intractable Inject 1 mL (120 mg total) under the skin every 28 (twenty-eight) days. 3 each 09/05/20 25 025 Disconti nued(Reo rder) Active Problems Problem Noted Date Diagnosed Date Iron deficiency anemia due to chronic blood loss 06/26/2025 Chronic kidney disease, stage 3a ([facility] V24, C [place]/[facility] V28) 08/24/2024 Tachycardia 05/27/2024 Esophageal reflux 06/17/2022 Tendonitis of knee, right 04/29/2021 Right knee pain 04/29/2021 Osteoarthritis of right knee 04/29/2021 Major depressive disorder in partial remission ([facility] V24) 03/21/2021 DM (diabetes mellitus), type 2 with peripheral vascular complications ([facility] V24, [facility] V28) 08/30/2020 COVID-19 virus infection 08/24/2020 Insomnia 04/19/2020 Elevated alkaline phosphatase level 02/22/2020 Overview (09/02/2024): Elevated GGTP 08/2020, rec RUQ u/s Migraine with aura and witho ut status migrainosus, not intractable 02/17/2020 Erectile dysfunction 02/17/2020 Urolithiasis 01/03/2011 Overview (09/02/2024): Aba HTN (hypertension) 10/11/2009 Encounters Date Type Department Care Team Description 10/17/2025 Telephone Gastroenterology - [place] [address] [place] [phone] Karina Johnson MD 10/11/2025 12:15 PM EST Lab Draw Station - [address] [place] [phone] Antimitochondrial antibody positive 10/11/2025 Results Follow-Up Gastroenterology - [address] [place] [phone] Veronica Tobin NP 09/22/2025 Results Follow-Up Gastroenterology - [place] [address] [place] [phone] Veronica Tobin NP 09/21/2025 8:00 AM EDT - 09/21/2025 11:59 PM EDT Hospital Encounter [facility] Nuclear Medicine [address] [place] [phone] Nausea and vomiting in adult patient Discharge Disposition: Home or Self Care 08/10/2025 Telephone Gastroenterology [address] [phone] Karina Johnson MD 08/02/2025 11:00 AM EDT Office Visit Internal Medicine [address] [phone] Dank Nguyen MD Type 2 diabetes mellitus without complication, with long-term current use of insulin (CMS/[facility] V24, CMS/HCC V28) (Primary Dx); Primary hypertension; Hypercholesterolemia; Stage 2 chronic kidney disease 08/02/2025 Telephone Internal Medicine [address] [phone] Cassidy Kinney [place] 07/19/2025 9:40 AM EDT Office Visit Gastroenterology [address] [phone] Veronica Tobin NP Nausea and vomiting in adult patient (Primary Dx); Esophagitis, [place] grade D; Marijuana use; Elevated alkaline phosphatase level; History of gastric ulcer; Iron deficiency anemia, unspecified iron deficiency anemia type 07/19/2025 Telephone Gastroenterology [address] [phone] Veronica Tobin NP from Last 3 Months Immunizations Immunization Administration Dates Next Due Influenza trivalent, 0.5mL, preservative free (Fluarix; FluLaval; Fluzone) ages 6mo and older (Afluria) 3 years and older 09/14/2012,10/11/2010 Pneumococcal polysaccharide 23 valent (Pneumovax 23) 2yo and older 03/21/2021 Td Tetanus diptheria (Tdvax) 7yo and older 11/23 Surgical History Surgery Date Site/Laterality Comments UPPER GASTROINTESTINAL ENDOSCOPY 10/10/2020 PROCEDURE: [place] UPPER GI ENDOSCOPY PERFORMED; COMMENT: LA grade C reflux esophagitis on current treatment with pantoprazole, pathology: Reflux, no virus infection. Medical History Medical History Date Comments Urolithiasis 01/03/2011 DX:Urolithiasis Esophageal reflux DX:Esophageal reflux Cervical spondylosis without myelopathy DX:Cervical spondylosis with out myelopathy Depressive disorder DX:Depressiv e disorder Diabetes mellitus type 2, co ntrolled, with complications ([facility] V24, [facility] V28) DX:Diabetes mellitus type 2, controlled, with complications ([facility]) Essential hypertension DX:Essent ial hypertension Stage 3 acute kidney injury ([facility] V24) DX:Stage 3 acute kidney inju ry ([facility]) Family History Medical History Relation Name Comments [...] Description 11/02/2025 2:00 PM EST Office Visit [facility] Hematology Oncology [address] [place] [phone] Tomer Allan MD [address] [place] [phone] 11/21/2025 9:45 AM EST Office Visit Pulmonology - [place] 175 [facility] [address] [place] [phone] Marlene Jiménez MD [address] [place] [phone] 11/22/2025 1:00 PM EST Office Visit [facility] [place] 175 [facility] [address] [place] [phone] Nazia Doherty MD [address] [place], [place] [phone] 12/01/2025 9:50 AM EST Office Visit [facility] [address] [place] [phone] Saad Scott MD [address] [place] [address] [address] [place] [phone] 02/01/2026 10:30 AM EDT Office Visit Internal Medicine - [place] 175 [facility] [address] [place] [phone] Keith Fernandez NP 175 [facility] [address] [place] [address] Health Maintenance Due Date Last Done Comments [...] 10/11/2025 12:15 PM EST Antimitochondrial antibody positive EXTERNAL CLINICAL LAB 10/11/2025 NM GASTRIC EMPTYING STUDY Routine 2024 9:28 [...] complication, with long-term current use of insulin ([facility] V24, [facility] V28) Primary hypertension Hypercholesterolem ia Depression, unspecified depression type LIPID PANEL WITH REFLEX TO DIRECT LDL Routine 03/09/2025 2:19 PM EDT Type 2 diabetes mellitus without complication, with long-term current use of insulin ([facility] V24, [facility] V28) Primary hypertension Hypercholesterolem ia Depression, unspecified depression type HM HEPATITIS C SCREENING Routine 05/06/2024 HM HIV SCREENING Routine 05/06/2024 URINE ALBUMIN CREATININE RATIO Routine 05/06/2024 HM DEPRESSION SCREENING Routine 04/29/2024 from Last 3 Months or Most Recently Relevant to Health Maintenance Results * (ABNORMAL) CBC auto differential (10/11/2025 12:15 PM EST) Only the most recent of2 resultswithin the time period is included. WBC 8.7 4.8 - 10.8 K/mcL LAB HEMETOLOGY METHOD 10/11/2025 2:15 PM [facility] RBC 5.40 4.50 - 5.50 M/mcL LAB HEMETOLOGY METHOD 10/11/2025 2:15 PM [facility] Hemoglobin 14.0 13.5 - 17.5 g/dL LAB HEMETOLOGY METHOD 10/11/2025 2:15 PM [facility] Hematocrit 45.0 42.0 - 54.0 % LAB HEMETOLOGY METHOD 10/11/2025 2:15 PM [facility] MCV 83.0 79.0 - 98.0 FL LAB HEMETOLOGY METHOD 10/11/2025 2:15 PM [facility] MCH 25.8(L) 27.0 - 32.0 pcg LAB HEMETOLOGY METHOD 10/11/2025 2:15 PM [facility] MCHC 31.1(L) 32.0 - 37.0 g/dL LAB HEMETOLOGY METHOD 10/11/2025 2:15 PM [facility] RDW 14.0 11.0 - 15.0 % LAB HEMETOLOGY METHOD 10/11/2025 2:15 PM [facility] Platelets 269 130 - 400 K/mcL LAB HEMETOLOGY METHOD 10/11/2025 2:15 PM [facility] MPV 11.3(H) 7.0 - 11.0 FL LAB HEMETOLOGY METHOD 10/11/2025 2:15 PM [facility] NRBC 0.0 <1.0 % LAB HEMETOLOGY METHOD 10/11/2025 2:15 PM [facility] NRBC Absolute 0.00 <0.10 K/mcL LAB HEMETOLOGY METHOD 10/11/2025 2:15 PM [facility] Neutrophils Relative 56.2 % LAB HEMETOLOGY METHOD 10/11/2025 2:15 PM [facility] Lymphocytes Relative 33.4 % LAB HEMETOLOGY METHOD 10/11/2025 2:15 PM [facility] Monocytes Relative 7.1 % LAB HEMETOLOGY METHOD 10/11/2025 2:15 PM [facility] Eosinophils Relative 2.6 % LAB HEMETOLOGY METHOD 10/11/2025 2:15 PM [facility] Basophils Relative 0.5 % LAB HEMETOLOGY METHOD 10/11/2025 2:15 PM [facility] Immature Granulocytes Relative 0.2 % LAB HEMETOLOGY METHOD 10/11/2025 2:15 PM [facility] Neutrophils Absolute 4.89 1.50 - 7.00 K/mcL LAB HEMETOLOGY METHOD 10/11/2025 2:15 PM EST [facility] Lymphocytes Absolute 2.91 1.00 - 5.00 K/mcL LAB HEMETOLOGY METHOD 10/11/2025 2:15 PM EST [facility] Monocytes Absolute 0.62 0.20 - 1.00 K/[facility] LAB HEMETOLOGY METHOD 10/11/2025 2:15 PM EST [facility] Eosinophils Absolute 0.23 0.00 - 0.50 K/[facility] LAB HEMETOLOGY METHOD 10/11/2025 2:15 PM EST [facility] Basophils Absolute 0.04 0.00 - 0.20 K/[facility] LAB HEMETOLOGY METHOD 10/11/2025 2:15 PM EST [facility] Immature Granulocytes Absolute 0.02 0.00 - 0.03 K/[facility] LAB HEMETOLOGY METHOD 10/11/2025 2:15 PM EST [facility] Blood Venous blood specimen / Unknown Venipuncture / Unknown 10/11/2025 12:15 PM EST 10/11/2025 12:15 PM EST Veronica Tobin HOURLY SHIFT MANAGER LAB BLOOD ORDERABLES Final Resu lt [facility] [address] [place] [address], * (ABNORMAL) Prothrombin time with INR (10/11/2025 12:15 PM EST) Protime 10.4(L) 10.6 - 13.9 sec LAB COAGULATION METHOD 10/11/2025 2:15 PM EST [facility] INR 0.8 LAB COAGULATION METHOD 10/11/2025 2:15 PM EST [facility] Blood Venous blood specimen / Unknown Venipuncture / Unknown 10/11/2025 12:15 PM EST 10/11/2025 12:15 PM EST Veronica Mahad HOURLY SHIFT MANAGER LAB BLOOD ORDERABLES Final Resu lt [facility] ([facility]) [facility] [address] [place] [address], [place] [phone] * External clinical lab (10/11/2025) Only the most recent of4 resultswithin the time period is included. Provider [facility] LAB BLOOD ORDERABLES Fin al Result * NM Gastric Emptying Study (09/21/2025 9:28 AM EDT) Anatomical Region Laterality Modality Body Nuclear Medicine 09/21/2025 3:31 PM EDT Impressions 09/21/2025 3:32 PM EDT Nondiagnostic exam due to patient vomiting the ingested meal. [facility]eler[facility] JUSTIN ([id number]) -------- FINAL REPORT -------- Dictated By: Elizabeth Mcnally Dictated Date: 09/21/2025 15:31 ET Assigned Physician: Elizabeth Mcnally Reviewed and Electronically Signed By: Elizabeth Mcnally Signed Date: 09/21/2025 15:32 ET Workstation ID: [id number] Transcribed By: Self Edit Transcribed Date: 09/21/2025 [...] patient vomiting the ingested meal. [facility]eler[facility] JUSTIN ([id number]) -------- FINAL REPORT -------- Dictated By: Elizabeth Mcnally Dictated Date: 09/21/2025 15:31 ET Assigned Physician: Elizabeth Mcnally Reviewed and Electronically Signed By: Elizabeth Mcnally Signed Date: 09/21/2025 15:32 ET Workstation ID: [id number] Transcribed By: Self Edit Transcribed Date: 09/21/2025 15:31 ET Veronica Tobin HOURLY SHIFT MANAGER IMG NM PROCEDURES Final Result * Iron and TIBC (09/15/2025 1:30 PM EDT) Iron 63 50 - 160 mcg/dL LAB CHEMISTRY METHOD 09/15/2025 3:38 PM EDT [facility] TIBC 280 250 - 450 mcg/dL LAB CHEMISTRY METHOD 09/15/2025 3:38 PM EDT [facility] Iron Saturation 23 20 - 50 % LAB CHEMISTRY METHOD 09/15/2025 3:38 PM EDT [facility] Blood Venous blood specimen / Unknown Venipuncture / Unknown 09/15/2025 1:30 PM EDT 09/15/2025 1:30 PM EDT Tomer Allan MD LAB BLOOD ORDERABLES Final Result [facility] [address] [place] [address], * Smooth muscle antibody IgG (09/15/2025 1:30 PM EDT) Smooth Muscle (F-Actin) IgG Ab 2 <20 UNITS 09/18/2025 2:13 PM EDT [facility] Comment: Interpretation: Negative Test performed at [facility], [address] , [place] [address] Melany Gooden MD, PhD - Process Owner Blood Venous blood specimen / Unknown Venipuncture / Unknown 09/15/2025 1:30 PM EDT 09/15/2025 1:30 PM EDT Veronica Tobin HOURLY SHIFT MANAGER LAB BLOOD ORDERABLES Final Resu lt [facility] [address] [place] [phone] * (ABNORMAL) Alkaline phosphatase, isoenzymes (09/15/2025 1:30 PM EDT) Alkaline Phosphatase 142(H) 36 - 130 U/L 09/22/2025 7:39 PM EDT [facility] Comment: Test Performed at: [facility] [address] [place] [phone] Placido Austin MD, PhD, KASSIDY Alk Phos [...] EDT [facility] Comment: Test Performed at: [facility] [address] [place] [phone] Placido Austin MD, PhD, KASSIDY Alk Phos Isoenzyme Macrohepatic TNP 09/22/2025 7:39 PM EDT [facility] Alkaline Phosphatase Isoenzymes Interpretation TNP 09/22/2025 7:39 PM EDT [facility] Blood Venous blood specimen / Unknown Venipuncture / Unknown 09/15/2025 1:30 PM EDT 09/15/2025 1:30 PM EDT Veronica Tobin HOURLY SHIFT MANAGER LAB BLOOD ORDERABLES Edited Res ult - Final [facility] [address] [place] [address] * (ABNORMAL) Antimitochondrial antibody (09/15/2025 1:30 PM EDT) [facility] Mitochondrial Antibody Quantitative 22.6(H) <=20.0 units LAB CHEMISTRY METHOD 09/20/2025 11:30 AM EDT [facility] Mitochondrial Antibody Qualitative Equivoca l(A) Negative LAB CHEMISTRY METHOD 09/20/2025 11:30 AM EDT [facility] Blood Venous blood specimen / Unknown Venipuncture / Unknown 09/15/2025 1:30 PM EDT 09/15/2025 1:30 PM EDT Veronica Tobin NP LAB BLOOD ORDERABLES Final Resu lt Performing Organization Address [facility] de Phone Number [facility] [address] [place] [address], [place] [phone] * Ferritin (09/15/2025 1:30 PM EDT) [facility] Ferritin 79 26 - 388 ng/mL LAB CHEMISTRY METHOD 09/15/2025 3:39 PM EDT [facility] Blood Venous blood specimen / Unknown Venipuncture / Unknown 09/15/2025 1:30 PM EDT 09/15/2025 1:30 PM EDT Tomer Allan MD LAB BLOOD ORDERABLES Final Result Performing Organization Address [facility] Co de Phone Number [facility] [address] [place] [address], [place] [phone] * (ABNORMAL) Comprehensive metabolic panel (05/22/2025 11:18 AM EDT) [facility] Sodium 141 133 - 145 mmol/L LAB CHEMISTRY METHOD 05/22/2025 2:45 PM EDT [facility] Potassium 4.2 3.5 - 5.5 [...] 05/22/2025 2:45 PM [facility] Alkaline Phosphatase 212(H) 42 - 121 unit/L LAB CHEMISTRY METHOD 05/22/2025 2:45 PM EDT [facility] Total Protein 7.4 6.0 - 8.0 g/dL LAB CHEMISTRY METHOD 05/22/2025 2:45 PM EDT [facility] Albumin 3.8 3.2 - 5.0 g/dL LAB CHEMISTRY METHOD 05/22/2025 2:45 PM EDT [facility] Total Bilirubin 1.3 0.0 - 1.4 mg/dL LAB CHEMISTRY METHOD 05/22/2025 2:45 PM EDT [facility] Blood Venous blood specimen / Unknown Venipuncture / Unknown 05/22/2025 11:18 AM EDT 05/22/2025 1:31 PM EDT us Tomer Allan MD LAB BLOOD ORDERABLES Final Result [facility] [address] [place] [address], [place] [phone] * (ABNORMAL) Lipid panel with reflex to direct LDL (03/09/2025 2:19 PM EDT) Cholesterol 157 0 - 200 mg/dL LAB CHEMISTRY METHOD 03/09/2025 3:41 PM T [facility] Triglycerides 163(H) 0 - 150 mg/dL LAB CHEMISTRY METHOD 03/09/2025 3:41 PM T [facility] HDL 70 >=40 mg/dL LAB CHEMISTRY METHOD 03/09/2025 3:41 PM T [facility] LDL Calculated 54 0 - 100 mg/dL LAB CHEMISTRY METHOD 03/09/2025 3:41 PM T [facility] VLDL Cholesterol August 32.6 mg/dL LAB CHEMISTRY METHOD 03/09/2025 3:41 PM T [facility] Non HDL Chol. (LDL+VLDL) 87 <145 mg/dL LAB CHEMISTRY METHOD 03/09/2025 3:41 PM EDT [facility] Chol/HDL Ratio 2.2 0.0 - 4.4 LAB CHEMISTRY METHOD 03/09/2025 3:41 PM EDT [facility] Blood Venous blood specimen / Unknown Venipuncture / Unknown 03/09/2025 2:19 PM EDT 03/09/2025 2:37 PM EDT us Dank Nguyen MD LAB BLOOD ORDERABLES Final Resul t Performing Organization Address [facility] Co de Phone Number [facility] [address] [place] [address], [place] [phone] * (ABNORMAL) Hemoglobin A1c (03/09/2025 2:19 PM EDT) Hemoglobin A1C 12.5(H) <6.5 % LAB CHEMISTRY METHOD 03/09/2025 9:35 PM EDT [facility] Mean Bld Glu Estim. 312 mg/dL LAB CHEMISTRY METHOD 03/09/2025 9:35 PM EDT [facility] Blood Venous blood specimen / Unknown Venipuncture / Unknown 03/09/2025 2:19 PM EDT 03/09/2025 2:40 PM EDT us Dank Nguyen MD LAB BLOOD ORDERABLES Final Resul t Performing Organization Address [facility]/ZIP Co de Phone Number [facility] [address] [place] [address], [place] [phone] * Urine Albumin Creatinine Ratio (05/06/2024) Urine Albumin Creatinine Ratio Abstracted Historical Provider HEALTH MAINTENANCE Final Result * HIV Screening (05/06/2024) HIV Screening Abstracted Historical Maribel DC HEALTH MAINTENANCE Final Result * Hepatitis C Screening (05/06/2024) Hepatitis C Screening Abstracted us Historical Provider HEALTH MAINTENANCE Final Result * Depression Screening (04/29/2024) Depression Screening Abstracted us Historical Provider HEALTH MAINTENANCE Final Result from Last 3 Months or Most Recently Relevant to Health Maintenance Insurance [facility] [place] [address] Care Teams Bike Shop Manager Relationship Specialty Start Date End Date Dank Nguyen MD [address] [facility] [address] [place] [address] PCP - General Internal Medicine 04/23/21
== END 2025-10-17 10:46 | disposition home or self-care (01) ==
LOC: HO.HKAS 10:21
PROVIDERS: PCP Internal Medicine; Visit Provider Internal Medicine Nephrology
DX: E11.22 Type 2 diabetes mellitus with diabetic chronic kidney disease (principal); N18.30 Chronic kidney disease, stage 3 unspecified; I10 Essential (primary) hypertension; E11.21 Type 2 diabetes mellitus with diabetic nephropathy
CPT/HCPCS: 99214

== ENCOUNTER → 2025-10-17 10:20 | Outpatient (BNVA) | payer OTHER, SELFPAY | PROVIDERS: PCP Internal Medicine; Visit Provider Internal Medicine Nephrology | DX: E11.22 Type 2 diabetes mellitus with diabetic chronic kidney disease (principal); N18.30 Chronic kidney disease, stage 3 unspecified; I10 Essential (primary) hypertension; E11.21 Type 2 diabetes mellitus with diabetic nephropathy | CPT/HCPCS: 99212 ==